=== PATIENT | female | born 1965 | race Caucasian/White ===

== ENCOUNTER 2019-08-25 17:30 | Emergency (ER) | payer OTHER, SELFPAY ==
[2019-08-25 17:30] VITALS: BP 136/88; PULSE 90; RESP 16; TEMP 36.2; O2SAT 96; BMI 39.8
--- NOTE | 2019-08-25 18:13 | CT_ITS ---
STUDY: CT BRAIN WITHOUT CONTRAST REASON FOR EXAM: Female, 54 years old. Trauma RADIATION DOSAGE (If Supplied By Facility): CTDIvol = ( 44.99 ) mGy, DLP = ( 779.24 ) mGycm TECHNIQUE: Transaxial CT imaging of the brain was performed without administration of intravenous contrast material. Individualized dose optimization techniques were used for this CT. COMPARISON: No relevant priors. FINDINGS: Brain parenchyma is without focal lesions, mass effect, acute intracranial hemorrhage, extra parenchymal fluid collections, hydrocephalus or herniation. The skull is intact. There is a right forehead laceration. CT/Brain/Head without Contrast IMPRESSION: 1. Normal CT brain. Electronically Signed: Byron Lerma, at 19:16 EST Tel , Service support ,
--- NOTE | 2019-08-25 18:13 | CT_ITS ---
STUDY: CT CERVICAL SPINE WITHOUT CONTRAST REASON FOR EXAM: Female, 54 years old. Trauma RADIATION DOSAGE (If Supplied By Facility): CTDIvol = ( 30.97 ) mGy, DLP = ( 694.10 ) mGycm TECHNIQUE: High resolution transaxial imaging was performed without contrast material. Sagittal and coronal images were reconstructed. Individualized dose optimization techniques were used for this CT. COMPARISON: None FINDINGS: Craniocervical junction and cervical spine are intact and aligned. Mineralization is normal. Paraspinous soft tissues are normal. Spinal canal is patent at all levels. CT/Spine Cervical without Contras IMPRESSION: 1. Unremarkable cervical spine. No acute osseous injury. Electronically Signed: Byron Lerma, at 19:21 EST Tel , Service support ,
[2019-08-25] MEDS: Diphth,Pertuss(Acell),Tet Vac 0.5 ML Vial IM (18:49)
[2019-08-25 19:51] VITALS: RESP 16
--- NOTE | 2019-08-25 19:53 | ED.DCSUM_ITS ---
- ER Visit Summary Date of Service: 08/25/19 Chief Complaint: [Head injury with forehead laceration] History of Present Illness: The patient is a 54 F [presents to the emergency department after falling and sustaining a head injury. Patient states that she was at a [employer] for a football game and had been drinking. Patient went to the bathroom and fell striking her head. She denies loss of consciousness. She denies any neck pain. Patient unsure of last tetanus shot. She denies any other injuries. Denies any vomiting.] Physical Examination: [HEENT-PERRLA, EOMI. Cranial nerves II through XII grossly intact. TMs clear. Mucous membranes moist. No adenopathy. She has no C-spine tenderness to palpation. No bony step-offs or depressions noted. Patient has a 6 cm laceration over the right side of the forehead that is gaping open. No bony defect noted to the skull. Cardiovascular-regular rate and rhythm without murmur or ectopy Lungs-clear to auscultation, chest wall stable without crepitus or subcu emphysema Abdomen-normoactive bowel sounds, soft, nontender, no rebound or rigidity, no peritoneal signs. Extremities-intact ?4, normal range of motion, normal pulses, atraumatic] Test Results: [CT scan of the brain without contrast was unremarkable. CT scan of the C-spine was normal.] Emergency Department Course and Treatment: [Laceration repair-wound sterilely draped and prepped. Wound cleansed with Shur-Clens and irrigated with copious saline. Using 1% lidocaine with epinephrine total of 8 cc used to anesthetize the area. Wound cleansed with Shur-Clens and irrigated with copious saline. Using 6-0 nylon a total of 10 single interrupted sutures placed with good wound edge approximation. Patient had a procedure well.] Treatment Plan: [Patient to have sutures removed in 7 days. Patient to follow- up with primary care physician for that. Advised to return if increasing pain, redness, swelling, or conditions worsen anyway.] Disposition: [Discharged home in stable condition] Impression: [Mechanical fall Closed head injury Forehead laceration 6 cm-simple repair ] This note was generated with [employer] dictation software. It may contain incorrect words, spelling, and punctuation that were not noted in review of the chart prior to signing ED Disposition - Plan for ED Patient: Referrals: Michael Hyatt [Primary Care Provider] -
--- NOTE | 2019-08-25 19:56 | ED.DEP ---
ED Disposition - Plan for ED Patient: Instructions: LACERATION, Face (Suture or Tape), HEAD INJURY, No Wake-Up (Adult) Referrals: Michael Hyatt [Primary Care Provider] - 7 Days for suture removal
[2019-08-25 20:04] VITALS: RESP 16
== END 2019-08-25 20:05 | disposition home or self-care (01) ==
LOC: ED 18:22
PROVIDERS: Emergency Provider Emergency Medicine; Family Provider Internal Medicine; PCP Internal Medicine
DX: S01.81XA Laceration without foreign body of other part of head, initial encounter (principal); W18.09XA Striking against other object with subsequent fall, initial encounter; Y93.9 Activity, unspecified; Y92.89 Other specified places as the place of occurrence of the external cause; Y99.9 Unspecified external cause status; I10 Essential (primary) hypertension; Z72.89 Other problems related to lifestyle
CPT/HCPCS: 12014; 70450; 72125; 90471; 90715; 99283

== ENCOUNTER → 2021-05-18 10:52 | Outpatient (CLI) | payer OTHER, SELFPAY | PROVIDERS: PCP Internal Medicine; Referring Provider Physician Assistant; Visit Provider Physician Assistant | DX: R09.81 Nasal congestion (principal) | CPT/HCPCS: 87635; U0005; U0003 ==

== ENCOUNTER → 2021-08-14 16:04 | Outpatient (CLI) | payer OTHER, SELFPAY ==
--- NOTE | 2021-08-14 08:18 | KNEE_PTH ---
PATIENT: MAXIMINO PATEL LOC: [facility] U#:[id number] AGE/SX: 60/F ROOM: RE08/14/[address]: Dr. Cristhian Yuan MD : 1965 BED: DIS: SPEC #: [id number] RECD: 08/14/21 14:57 STATUS: MOHAN RE #: [id number] JORDYN: 08/14/21 08:[address]: Cristhian Yuan DEPT: SURGICAL PATHOLOGY RECD BY: Annamaria Vila ENTERED: 08/17/21 09:10 SP TYPE: TOTAL KNEE OTHR DR: Dr. Michael Hyatt MD [facility] Tissues: Knee, NOS Procedures: Decalcification bone/plaque Surgery Specimen Level IV HEADER OPERATION: Right total knee arthroplasty PRE-OP DIAGNOSIS: Osteoarthritis right knee TISSUE SUBMITTED: Bone right knee MICROSCOPIC DIAGNOSIS Bone right knee, total knee replacement/resection: Pieces of bone with degenerative osteoarthritic changes. Fibroadipose tissue, fibroconnective tissue and reactive synovial tissue. SJ:norma 08/25/2021 MICROSCOPIC DESCRIPTION Slides are reviewed. GROSS DESCRIPTION Received is one container designated bone and soft tissue right knee. The specimen consists of multiple fragments of agustin-yellow bone measuring in aggregate 12 x 8 x 2 cm. Also in the specimen container are multiple fragments of yellow-white soft tissue measuring in aggregate 7 x 5 x 2 cm. A number of bony fragments contain articular surfaces consistent with tibial plateau and femoral condyle and displaying prominent osteophyte formation, eburnation, and bone erosion. Automobile Mechanic sections are submitted in three cassettes as follows: 1 - soft tissue, 2 & 3 - bone after decalcification. / AM:norma 08/17/21 TC:5 [facility]: [id number], [id number]
== END ==
PROVIDERS: PCP Internal Medicine; Referring Provider Orthopaedic Surgery; Visit Provider Orthopaedic Surgery
DX: M17.11 Unilateral primary osteoarthritis, right knee (principal)
CPT/HCPCS: 88305; 88311

== ENCOUNTER 2021-09-09 05:26 | Day surgery (SDC) | payer OTHER, SELFPAY ==
[2021-09-09] MEDS: Lactated Ringers 1,000 ML 15 ML IV (05:35)
[2021-09-09 05:51] VITALS: BP 150/87; PULSE 82; RESP 16; TEMP 36.9; O2SAT 98; BMI 37.0
--- NOTE | 2021-09-09 06:30 | COLBX_PTH ---
PATIENT: MAXIMINO PATEL LOC: [facility] U#:[id number] AGE/SX: 56/F ROOM: RE09/09/[address]: Dr. Ez Nichols DO : 1965 BED: DIS: 09/09/2021 SPEC #: [id number] RECD: 09/09/21 09:21 STATUS: MOHAN REShyam #: [id number] JORDYN: 09/09/21 06:[address]: Ez Nichols DEPT: SURGICAL PATHOLOGY RECD BY: Steven Jacob ENTERED: 09/09/21 10:53 SP TYPE: COLON BX OT DR: Dr. Michael Hyatt MD Tissues: A - Cecum, NOS B - COLON BIOPSY C - Transverse colon Procedures: Surgery Specimen Level IV HEADER OPERATION: Colonoscopy, open access PRE-OP DIAGNOSIS: Screening colonoscopy TISSUE SUBMITTED: A ? Cecal polyp biopsy, B ? Hepatic flexure biopsy, C ? Transverse polyp biopsy MICROSCOPIC DIAGNOSIS A. Cecal polyp, biopsy: Tubular adenoma. B. Colonic at hepatic flexure, biopsy: Tubular adenoma. C. Transverse colon polyp, biopsy: Fragments of tubular adenoma. AM:norma 09/10/2021 MICROSCOPIC DESCRIPTION Slides are reviewed. GROSS DESCRIPTION A - Received in fixative is one container labeled with the patient's name and designated cecal polyp biopsy. The specimen consists of one irregular fragment of light agustin soft tissue that measures 0.5 x 0.3 x 0.1 cm. The specimen is totally submitted in one cassette. B - Received in fixative is one container labeled with the patient's name and designated hepatic flexure biopsy. The specimen consists of one irregular fragment of light agustin soft tissue that measures 0.5 x 0.5 x 0.1 cm. The specimen is totally submitted in one cassette. C - Received in fixative is one container labeled with the patient's name and designated transverse colon polyp. The specimen consists of two irregular fragments of light agustin soft tissue that in aggregate measure 0.8 x 0.3 x 0.1 cm. The specimen is totally submitted in one cassette. 09/09/21 TC:5 CPT: 59153 x3
--- NOTE | 2021-09-09 06:33 | PCM.HP.BLA ---
History and Physical Date of Admission: 09/09/21 56-year-old with past medical history of hypertension and gastroesophageal reflux disease both controlled on medications arrives here for screening colonoscopy. This is her first colonoscopy. She is not having any problems with her bowels including no constipation, diarrhea or lower GI bleeding. Her weight has been stable. She is not having any pain at this time. Overall she is in a good state of health. All other 16 review of systems are negative except those pertinent positive mentioned HPI ROS Const Constitutional: No other (As above) Exam Const General: cooperative, healthy appearing, comfortable and no acute distress Nutritional Appearance: well nourished Orientation: alert, awake and oriented x3 HENMT Head: normal to inspection Ears: hearing grossly normal bilaterally, external ears normal, TM's normal bilaterally and EAC's normal Nose: external nose normal, nares normal, septum normal and no nasal discharge Face and sinus: normal facial exam, sinuses nontender and face symmetric Mouth: oral mucosae normal, lip normal, tongue normal and oropharynx normal Teeth and gingiva: dentition normal and gingiva normal Throat: posterior oropharynx normal, tonsils normal, uvula midline and no postnasal drainage Eyes General: appearance normal, both eyes and all related structures Neck Neck: normal visual inspection, full ROM, no lymphadenopathy, no meningeal signs and supple Neck mass: No Thyroid: thyroid normal Lymphatic: no lymphadenopathy noted Chest Chest palpation & inspection: normal inspection of the chest Resp Effort & Inspection: normal respiratory effort, able to speak in complete sentences, symmetric chest movement and no cough Auscultation: Bilateral: Clear to Auscultation Cardio Palpation: normal PMI Rate: regular rate Rhythm: regular rhythm Heart Sounds: S1 normal, S2 normal, no gallops, no murmurs and no rubs Pulses: radial pulses present GI Inspection: large pannus Palpation: not firm, no guarding and nontender Skin General: no rashes or lesions noted Neuro General: patient alert, patient awake, patient oriented x3 and gait normal Cognition: normal cognition Speech: speech normal Gait: normal gait Motor: muscle tone normal throughout Sensory Exam: no sensory deficits noted Extrem General: normal to inspection Psych Appearance: grossly normal Mental Status: mental status grossly normal Mood: congruent mood Affect: normal affect Speech and Movement: speech and movement normal Attitude: cooperative Thought Process: normal Thought Content: normal Judgment: judgment good Assessment and Plan Assessment and Plan 56-year-old arrives here for screening colonoscopy. She was explained alternatives, risk, benefits including not withstanding bleeding, infection, sepsis, perforation, need for emergent surgery . She will have an ASA of 1.
[2021-09-09 07:05] VITALS: BP 115/79; BP 150/87; PULSE 66; RESP 16; TEMP 36.2; O2SAT 99
--- NOTE | 2021-09-09 07:06 | OP.COLON_ITS ---
Patient Name: Idalmis Glover Procedure Date: 09/09/2021 6:17 AM Date of : 1965 Age: 56 Procedure: Colonoscopy Indications: Screening for colorectal malignant neoplasm Providers: Ez Nichols DO Medicines: See the Anesthesia note for documentation of the administered medications Patient Profile: This is a 56 year old female. Refer to note in patient chart for documentation of history and physical. Last Colonoscopy: date unknown. Complications: No immediate complications. Procedure: Pre-Anesthesia Assessment: - Prior to the procedure, a History and Physical was performed, and patient medications and allergies were reviewed. The risks and benefits of the procedure and the sedation options and risks were discussed with the patient. All questions were answered and informed consent was obtained. Patient identification and proposed procedure were verified by the physician in the pre-procedure area. Mental Status Examination: alert and oriented. Airway Examination: normal oropharyngeal airway and neck mobility. Respiratory Examination: clear to auscultation. CV Examination: normal. Prophylactic Antibiotics: The patient does not require prophylactic antibiotics. Prior Anticoagulants: The patient has taken no previous anticoagulant or antiplatelet agents. ASA Grade Assessment: II - A patient with mild systemic disease. After reviewing the risks and benefits, the patient was deemed in satisfactory condition to undergo the procedure. The anesthesia plan was to use moderate sedation / analgesia (conscious sedation). Immediately prior to administration of medications, the patient was re-assessed for adequacy to receive sedatives. The heart rate, respiratory rate, oxygen saturations, blood pressure, adequacy of pulmonary ventilation, and response to care were monitored throughout the procedure. The physical status of the patient was re-assessed after the procedure. After I obtained informed consent, the scope was passed under direct vision. Throughout the procedure, the patient's blood pressure, pulse, and oxygen saturations were monitored continuously. The Colonoscope was introduced through the anus and advanced to the cecum, identified by appendiceal orifice and ileocecal valve. The ileocecal valve, appendiceal orifice, and rectum were photographed. Moderate Sedation: Moderate (conscious) sedation was administered by the endoscopy nurse and supervised by the endoscopist. The patient's oxygen saturation, heart rate, blood pressure and response to care were monitored. Total physician intraservice time was 15 minutes. Scope In: 6:43:36 AM Scope Withdrawal Time 0 hours 13 minutes 34 seconds Scope Out: 7:00:34 AM Total Procedure Duration Time 0 hours 16 minutes 58 seconds Findings: The perianal and digital rectal examinations were normal. Multiple small-mouthed diverticula were found in the recto-sigmoid colon, sigmoid colon, descending colon and transverse colon. Three sessile polyps were found in the transverse colon, hepatic flexure and cecum. The polyps were 1 to 2 mm in size. These polyps were removed with a hot snare. Resection and retrieval were complete. Verification of patient identification for the specimen was done. Estimated blood loss was minimal. Impression: - Mild diverticulosis in the recto-sigmoid colon, in the sigmoid colon, in the descending colon and in the transverse colon. - Three 1 to 2 mm polyps in the transverse colon, at the hepatic flexure and in the cecum, removed with a hot snare. Resected and retrieved. Recommendation: - Repeat colonoscopy in 3 years for surveillance of multiple polyps. - Return to GI office PRN. - Continue present medications. Procedure Code(s): --- Professional --- 05531, Colonoscopy, flexible; with removal of tumor(s), polyp(s), or other lesion(s) by snare technique G0500, Moderate sedation services provided by the same physician or other qualified health skin care therapist performing a gastrointestinal endoscopic service that sedation supports, requiring the presence of an independent trained observer to assist in the monitoring of the patient's level of consciousness and physiological status; initial 15 minutes of intra-service time; patient age 5 years or older (additional time may be reported with 47974, as appropriate) CPT copyright 2017 [employer]. All rights reserved. The codes documented in this report are preliminary and upon repairer recreational vehicle review may be revised to meet current compliance requirements. Ez Nichols DO 09/09/2021 7:06:28 AM This report has been signed electronically. Number of Addenda: 1 Note Initiated On: 09/09/2021 6:17 AM Addendum Number: 1 Addendum Date: 06/02/2022 7:15:45 AM MAC was used instead of moderate sedation for the patient. Ez Nichols DO 06/02/2022 7:15:50 AM This report has been signed electronically.
--- NOTE | 2021-09-09 07:06 | OP.CCLET_ITS ---
06/02/2022 Michael Hyatt Re : Colonoscopy procedure for Idalmis Glover [place] This procedure was performed on Thursday, September 09, 2021. My impressions and recommendations are as follows: Impressions : - Mild diverticulosis in the recto-sigmoid colon, in the sigmoid colon, in the descending colon and in the transverse colon. - Three 1 to 2 mm polyps in the transverse colon, at the hepatic flexure and in the cecum, removed with a hot snare. Resected and retrieved. Recommendations : - Repeat colonoscopy in 3 years for surveillance of multiple polyps. - Return to GI office PRN. - Continue present medications. My findings are described in the full procedure note, which is enclosed. If I can be of further assistance, please feel free to contact me at . Sincerely, Ez Nichols, 09/09/2021 7:06:28 AM This report has been signed electronically.
[2021-09-09 07:10] VITALS: BP 123/86; BP 150/87; PULSE 63; RESP 16; O2SAT 100
[2021-09-09 07:15] VITALS: BP 117/77; BP 150/87; PULSE 65; RESP 16; O2SAT 100
[2021-09-09 07:20] VITALS: BP 131/81; BP 150/87; PULSE 63; RESP 16; TEMP 36.2; O2SAT 100
[2021-09-09 07:22] VITALS: BP 150/87
== END 2021-09-09 07:38 ==
LOC: EN 05:28 → AC 05:28
PROVIDERS: PCP Internal Medicine; Referring Provider Internal Medicine; Visit Provider Internal Medicine Gastroenterology
PROC: 0DJD8ZZ Inspection of Lower Intestinal Tract, Via Natural or Artificial Opening Endoscopic (ICD-10-PCS; CPT 45378; principal; 2021-09-09 06:25)
DX: Z12.11 Encounter for screening for malignant neoplasm of colon (principal); K57.30 Diverticulosis of large intestine without perforation or abscess without bleeding; K63.5 Polyp of colon; I10 Essential (primary) hypertension; K21.9 Gastro-esophageal reflux disease without esophagitis
CPT/HCPCS: 45385; 88305; J7120; J2405

== ENCOUNTER 2024-06-25 11:00 | Outpatient (RCR) | payer OTHER, SELFPAY ==
[2024-06-05 13:16] VITALS: BP 184/97; PULSE 91; RESP 16; TEMP 36.1; BMI 38.2
--- NOTE | 2024-06-06 08:30 | WC ---
PHOTO 06/05/24 [employer]
--- NOTE | 2024-06-06 16:13 | PCM.WC.HP ---
History of Present Illness Date of Service: 06/05/24 [facility] Medical History (Updated 06/06/24 @ 16:[address] 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 Obesity (BMI 30-39.9) GERD (gastroesophageal reflux disease) LENKA on CPAP Hyperlipidemia Post-menopausal Wears glasses Wears dentures Alcohol use Arthritis Gastric reflux Former smoker CPAP (continuous positive airway pressure) dependence Hypertension Encounter for screening for COVID-19 Home Medications ?Medication ?Instructions ?Recorded ?Last Taken ?Type losartan 50 mg tablet 50 mg PO DAILY 09/08/21 Unknown History omeprazole 40 mg capsule,delayed 40 mg PO DAILY 09/08/21 Unknown History release alprazolam 0.25 mg tablet 0.25 mg PO TID PRN PRN anxiety 06/05/24 Unknown History atorvastatin 20 mg tablet 20 mg PO QPM 06/05/24 Unknown History losartan 100 mg tablet 100 mg PO DAILY 06/05/24 Unknown History Allergy/AdvReac Type Severity Reaction Status Date / Time No Known Allergies Allergy Verified 06/05/24 13:28 Surgical History (Updated 06/06/24 @ 16:[address] Laron Balderas MD) Hx of colonoscopy Hx of total knee arthroplasty Hx of total knee arthroplasty History of Social History Smoking Status: Former smoker Vital Signs Vital Signs Vital Signs: Weight Weight: 216 lb Body Mass Index (BMI) 38.2 Debridement Note Debridement Note Post-Debridement Measurements and Additional Note: Post-Debridement Measurements/Treatment WC - Nurse 1 - General Ulcer Assessment Start: 06/05/24 13:14 Freq: Status: Active Protocol: ABDIEL Activity Type Activity Date Activity User E-sign Co-sign Detail Recorded Client Recorded Date Recorded By Document 06/05/24 13:16 KW [id number] 06/05/24 13:28 KW 06/05/24 13:16 WC - Today's Visit Information Type of service Initial Visit Arrival Mode Ambulatory Patient Identification Verified (Name & Yes ) Height and Weight Height 5 ft 3 in Weight 216 lb Weight in Pounds 216.0 lbs Weight Measurement Method Stated by Patient Body Mass Index (BMI) 38.2 BMI Classification Obese BSA - Minerva 2.00 Vital Signs Temperature (97.8 F-99.1 F) 96.9 F L Temperature Source Temporal Pulse Rate (60-100) 91 Pulse Location Monitor Respiratory Rate (12-18) 16 Respiratory rate source Observation Oxygen Delivery Method Room Air Blood Pressure (90/60-120/80) 184/97 H Blood Pressure Mean 126 Source Monitor Position Sitting Blood Pressure Location Left Arm History Since Last Visit- (Skip if this is Patient's initial visit) Left Footwear Regular Shoe Right Footwear Regular Shoe Pain Scale: 0-10 Numeric Is Patient Pain Free? No RLE -Comments ONLY WHEN BEING TOUCHED Communication Assessment Preferred language Frisian Crm Coordinator Required No Able to Read Yes Able to Write Yes Communication Tools None Caregiver Communication Skills No Impairment Impairment Right Hearing Abillity Normal Left Hearing Abillity Normal Visual Assistive Devices Glasses Teaching Assessment Preferences Verbal,Written Barriers to Learning None Readiness To Learn Excellent Willingness to Engage in Self Management High Activies Readiness to Engage in Self Management High Activities Anxiety Level Calm Cooperation Cooperative Perception Coherent Interest in Health Problem Asks Questions Education Importance Acknowledges Need Does Patient Smoke tobacco or other Yes substances Smoking Status Former smoker Is Patient Diabetic No Functional Assessment Recent Decline in Ability to Perform Denies Any Declines Culture/Baptism/Licensing And Registration Director Cultural/Baptism Needs that may affect No Treatment Plan Would you allow our hospital legal specialist to No meet you for the purpose of spiritual/ emotional support? Licensing And Registration Director to contact place of alevism No WC - Nurse 1 - General Ulcer Measurement Start: 06/05/24 13:14 Freq: Status: Active Protocol: Activity Type Activity Date Activity User E-sign Co-sign Detail Recorded Client Recorded Date Recorded By Document 06/05/24 13:16 KW [id number] 06/05/24 13:28 KW Edit Result 06/05/24 13:16 KW (1) [id number] 06/05/24 13:40 KW (1) #1 RT POST LE - Current Size (cm) - Length => 1.8 - Current Size (cm) - Width => 1.8 - Current Size (cm) - Depth => 0.5 - Total Square Cm => 3.24 Right Calf (cm) => 41.5 Right Ankle (cm) => 25 06/05/24 13:16 Wound Center Nurse 1 #1 RT POST LE -Current Size (cm) - Length 1.8 -Current Size (cm) - Width 1.8 -Current Size (cm) - Depth 0.5 -Total Square Cm 3.24 -Exudate Amt None Present -Wound Margin Distinct, Outline Attached -Granulation Amt Small (1-33%) -Granulation Quality Red -Necrosis Amt Large (67-100%) -Necrotic Tissue Type Eschar -Texture (Tanisha-wound Skin Appearance) Assessed -Moisture (Tanisha-wound Skin Appearance) Assessed -Color (Tanisha-wound Skin Appearance) Assessed -Temperature (Tanisha-wound Skin No Abnormality Appearance) (Pt Warm) -Tenderness on Palpation (Tanisha-wound No Skin Appearance) -Ulcer Cleansing Rinsed/ Irrigated with Saline -Foul Odor after Cleansing No -Anesthetic Used 5% Lidocaine Gel Right Calf (cm) 41.5 Right Ankle (cm) 25 WC - Nurse 2 - General Ulcer CM Notes Start: 06/05/24 13:14 Freq: Status: Active Protocol: Activity Type Activity Date Activity User E-sign Co-sign Detail Recorded Client Recorded Date Recorded By Document 06/05/24 13:49 DS [id number] 06/05/24 13:53 DS 06/05/24 13:49 Wound Center Nurse 2 #1 RT POST LE -Time 13:49 -Correct Patient Yes -Correct Side, Site, Position Yes -Correct Procedure Yes -Procedure Performed Yes -Type of Procedure Debridement -Clinical Debridement Subcutaneous -Tissue Removed Subcutaneous -Post Debridement (cm) - Length 2.0 -Post Debridement (cm) - Width 2.0 -Post Debridement (cm) - Depth 0.4 -Total Square (Post) (cm) 4.00 -Area of Debridement (cm) - Length 2.0 -Area of Debridement (cm) - Width 2.0 -Total Square (Area) (cm) 4.00 -Tunneling No -Undermining/Tunneling No -Circular Undermining No -Wound/Ulcer Outcome Not Healed -Ulcer Cleansing Rinsed/ Irrigated with Saline -Bioengineered Tissue No -Bleeding Controlled with Pressure -Treatment Response Procedure Tolerated Well -Debridement - Subq, 1st 20sq cm Yes Pain Scale: 0-10 Numeric Is Patient Pain Free? Yes - Nurse 3 - General Ulcer D/C NN Start: 06/05/24 13:14 Freq: Status: Active Protocol: Activity Type Activity Date Activity User E-sign Co-sign Detail Recorded Client Recorded Date Recorded By Document 06/05/24 14:04 KW [id number] 06/05/24 14:05 KW 06/05/24 14:04 Wound Care Center Nurse 3 #1 RT POST LE -Primary Dressing Applied Aquacel AG 4x4 -Primary Dressing Covered/Secured with Dry Gauze & Roll Gauze, Secured with Tape -Aquacel AG 4x4 1 Pain Scale: 0-10 Numeric Is Patient Pain Free? Yes WC - Visit Discharge Discharge Condition Stable Ambulatory Status Ambulatory Transportation Private Auto Medication Reconcilliation completed & No provided to patient/care provider Clinical Summary of Care Provided Yes Lab / Micro Data Micro: Microbiology 06/05/24 15:47 Wound - Leg Gram Stain - Final 06/05/24 15:47 Wound - Leg Wound Culture - Preliminary Mixed Gram Positive Organisms Assessment/Plan Assessment/Plan (1) 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 layer exposed: CODE(S): L97.212 - 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 layer exposed (2) Non-pressure chronic ulcer of calf with fat layer exposed: CODE(S): L97.202 - Non-pressure chronic ulcer of unspecified calf with fat layer exposed QUALIFIERS: Laterality: right Qualified Code(s): L97.212 - 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 layer exposed (3) History of : CODE(S): Z98.891 - History of uterine scar from previous surgery (4) Hx of colonoscopy: CODE(S): Z98.890 - Other specified postprocedural states (5) Hx of total knee arthroplasty: CODE(S): Z96.659 - Presence of unspecified artificial knee joint (6) Hx of total knee arthroplasty: CODE(S): Z96.659 - Presence of unspecified artificial knee joint (7) Hypertension: CODE(S): I10 - Essential (primary) hypertension (8) Hyperlipidemia: CODE(S): E78.5 - Hyperlipidemia, unspecified (9) LENKA on CPAP: CODE(S): G47.33 - Obstructive sleep apnea (adult) (pediatric) (10) GERD (gastroesophageal reflux disease): CODE(S): K21.9 - Gastro-esophageal reflux disease without esophagitis (11) Obesity (BMI 30-39.9): CODE(S): E66.9 - Obesity, unspecified
--- NOTE | 2024-06-06 16:20 | PCM.WC.HP ---
History of Present Illness Date of Service: 06/05/24 Chief Complaint: Traumatic wound of the right posterior calf History of Wound: This is a 59-year-old female who presented with a traumatic wound on the right posterior calf. On May 11, 2024, during an appointment with her family physician, the patient injured her right posterior calf while dismounting from the examination table. Her right calf impacted the examination table, creating an open wound, for which the patient has sought evaluation and management. The patient has been using antibiotic ointment topically. She denies chronic swelling in her lower extremities. She denies a history of thrombophlebitis. She is ambulatory, and is able to ambulate liberally without limitations. 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 She claims to lead an active lifestyle. The patient is moderately obese, with a BMI of 38.2. [facility] Medical History Diverticulosis Traumatic open wound of right lower leg 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 layer exposed Non-pressure chronic ulcer of calf with fat layer exposed Obesity (BMI 30-39.9) GERD (gastroesophageal reflux disease) LENKA on CPAP Hyperlipidemia Post-menopausal Wears glasses Wears dentures Alcohol use Arthritis Gastric reflux Former smoker CPAP (continuous positive airway pressure) dependence Hypertension Encounter for screening for COVID-19 Home Medications ?Medication ?Instructions ?Recorded ?Last Taken ?Type losartan 50 mg tablet 50 mg PO DAILY 09/08/21 Unknown History omeprazole 40 mg capsule,delayed 40 mg PO DAILY 09/08/21 Unknown History release alprazolam 0.25 mg tablet 0.25 mg PO TID PRN PRN anxiety 06/05/24 Unknown History atorvastatin 20 mg tablet 20 mg PO QPM 06/05/24 Unknown History losartan 100 mg tablet 100 mg PO DAILY 06/05/24 Unknown History Allergy/AdvReac Type Severity Reaction Status Date / Time No Known Allergies Allergy Verified 06/05/24 13:28 Surgical History Hx of colonoscopy Hx of total knee arthroplasty Hx of total knee arthroplasty History of Social History Smoking Status: Former smoker Vital Signs Vital Signs Vital Signs: Weight Weight: 216 lb Body Mass Index (BMI) 38.2 Physical Exam Const alert, oriented x3, no apparent distress, no limitations, healthy appearing and well nourished Constitutional Narrative: The patient's BMI is 38.2. General Appearance: cooperative, comfortable, well kempt and well developed Orientation / Consciousness: awake, oriented to person, oriented to place and oriented to time Exam Limitations: no limitations HEENT normocephalic and head/scalp atraumatic Head and Scalp: normal to inspection, normocephalic and atraumatic Face and Sinus: normal facial exam Nose: external nose normal External Ear: external ears normal Eyes PERRL and EOMs intact bilaterally General Eye: normal appearance of both eyes Neck full ROM Resp normal respiratory effort, normal air movement, no retractions and no use of accessory muscles Effort and Inspection: able to speak in complete sentences and symmetric chest movement Extremity full ROM and no calf tenderness Extremity Narrative: Multiple ecchymoses are noted on the patient's extremities bilaterally, both upper and lower General Extremity: Negative for clubbing or cyanosis Skin Wound Narrative: There is no swelling or edema noted in the patient's lower extremities bilaterally. An open wound is noted on the right posterior calf. Dimensions are documented elsewhere. There is a large amount of necrotic and nonviable tissue present, as well as bioburden. Mild tanisha-wound erythema and cellulitis are noted in the periwound area. As a result, swab culture was obtained for aerobic and anaerobic bacterial culture. Neuro oriented x3, CN's II-XII intact bilaterally, moves all extremities, no focal motor deficits and no sensory deficits noted Sensorium / Orientation: awake, alert, oriented to person, oriented to place, oriented to time and orientation impaired Psych Appearance: grossly normal and appropriate Attitude: calm Activity / Motor Behavior: appropriate eye contact Speech: normal speech Mood & Affect: euthymic mood Thought Process: normal thought process Thought Content: normal thought content Attention / Concentration: attention grossly intact Debridement Note Debridement Note Wound debrided: Right posterior calf Laterality: Right Type of Debridement: Excisional debridement Anesthesia Used: 5% Lidocaine Gel Depth: Down to and including healthy tissue and in the subcutaneous layer Percentage of wound debrided: 100 Instrument Used: 5mm curette Tissue Removed: Nonviable and necrotic tissue, bioburden Severity: Fat Layer Exposed Amount of bleeding with debridement: Mild Bleeding Controlled with: Compression and gauze Patient tolerated procedure: Patient tolerated procedure well Debridement Free Text: A swab culture was obtained, for aerobic and anaerobic bacterial growth Post-Debridement Measurements and Additional Note: Post-Debridement Measurements/Treatment WC - Nurse 1 - General Ulcer Assessment Start: 06/05/24 13:14 Freq: Status: Active Protocol: ABDIEL Activity Type Activity Date Activity User E-sign Co-sign Detail Recorded Client Recorded Date Recorded By Document 06/05/24 13:16 [id number] 06/05/24 13:28 06/05/24 13:16 WC - Today's Visit Information Type of service Initial Visit Arrival Mode Ambulatory Patient Identification Verified (Name & Yes ) Height and Weight Height 5 ft 3 in Weight 216 lb Weight in Pounds 216.0 lbs Weight Measurement Method Stated by Patient Body Mass Index (BMI) 38.2 BMI Classification Obese BSA - Minerva 2.00 Vital Signs Temperature (97.8 F-99.1 F) 96.9 F L Temperature Source Temporal Pulse Rate (60-100) 91 Pulse Location Monitor Respiratory Rate (12-18) 16 Respiratory rate source Observation Oxygen Delivery Method Room Air Blood Pressure (90/60-120/80) 184/97 H Blood Pressure Mean 126 Source Monitor Position Sitting Blood Pressure Location Left Arm History Since Last Visit- (Skip if this is Patient's initial visit) Left Footwear Regular Shoe Right Footwear Regular Shoe Pain Scale: 0-10 Numeric Is Patient Pain Free? No RLE -Comments ONLY WHEN BEING TOUCHED Communication Assessment Preferred language Armenian Insulation Board Coater Operator Required No Able to Read Yes Able to Write Yes Communication Tools None Caregiver Communication Skills No Impairment Impairment Right Hearing Abillity Normal Left Hearing Abillity Normal Visual Assistive Devices Glasses Teaching Assessment Preferences Verbal,Written Barriers to Learning None Readiness To Learn Excellent Willingness to Engage in Self Management High Activies Readiness to Engage in Self Management High Activities Anxiety Level Calm Cooperation Cooperative Perception Coherent Interest in Health Problem Asks Questions Education Importance Acknowledges Need Does Patient Smoke tobacco or other Yes substances Smoking Status Former smoker Is Patient Diabetic No Functional Assessment Recent Decline in Ability to Perform Denies Any Declines Culture/Jew/Multicultural Manager Cultural/Jew Needs that may affect No Treatment Plan Would you allow our hospital pea viner mechanic to No meet you for the purpose of spiritual/ emotional support? Multicultural Manager to contact place of samaritan No WC - Nurse 1 - General Ulcer Measurement Start: 06/05/24 13:14 Freq: Status: Active Protocol: Activity Type Activity Date Activity User E-sign Co-sign Detail Recorded Client Recorded Date Recorded By Document 06/05/24 13:16 KW [id number] 06/05/24 13:28 KW Edit Result 06/05/24 13:16 KW (1) [id number] 06/05/24 13:40 KW (1) #1 RT POST LE - Current Size (cm) - Length => 1.8 - Current Size (cm) - Width => 1.8 - Current Size (cm) - Depth => 0.5 - Total Square Cm => 3.24 Right Calf (cm) => 41.5 Right Ankle (cm) => 25 06/05/24 13:16 Wound Center Nurse 1 #1 RT POST LE -Current Size (cm) - Length 1.8 -Current Size (cm) - Width 1.8 -Current Size (cm) - Depth 0.5 -Total Square Cm 3.24 -Exudate Amt None Present -Wound Margin Distinct, Outline Attached -Granulation Amt Small (1-33%) -Granulation Quality Red -Necrosis Amt Large (67-100%) -Necrotic Tissue Type Eschar -Texture (Tanisha-wound Skin Appearance) Assessed -Moisture (Tanisha-wound Skin Appearance) Assessed -Color (Tanisha-wound Skin Appearance) Assessed -Temperature (Tanisha-wound Skin No Abnormality Appearance) (Pt Warm) -Tenderness on Palpation (Tanisha-wound No Skin Appearance) -Ulcer Cleansing Rinsed/ Irrigated with Saline -Foul Odor after Cleansing No -Anesthetic Used 5% Lidocaine Gel Right Calf (cm) 41.5 Right Ankle (cm) 25 - Nurse 2 - General Ulcer CM Notes Start: 06/05/24 13:14 Freq: Status: Active Protocol: Activity Type Activity Date Activity User E-sign Co-sign Detail Recorded Client Recorded Date Recorded By Document 06/05/24 13:49 DS [id number] 06/05/24 13:53 DS 06/05/24 13:49 Wound Center Nurse 2 #1 RT POST LE -Time 13:49 -Correct Patient Yes -Correct Side, Site, Position Yes -Correct Procedure Yes -Procedure Performed Yes -Type of Procedure Debridement -Clinical Debridement Subcutaneous -Tissue Removed Subcutaneous -Post Debridement (cm) - Length 2.0 -Post Debridement (cm) - Width 2.0 -Post Debridement (cm) - Depth 0.4 -Total Square (Post) (cm) 4.00 -Area of Debridement (cm) - Length 2.0 -Area of Debridement (cm) - Width 2.0 -Total Square (Area) (cm) 4.00 -Tunneling No -Undermining/Tunneling No -Circular Undermining No -Wound/Ulcer Outcome Not Healed -Ulcer Cleansing Rinsed/ Irrigated with Saline -Bioengineered Tissue No -Bleeding Controlled with Pressure -Treatment Response Procedure Tolerated Well -Debridement - Subq, 1st 20sq cm Yes Pain Scale: 0-10 Numeric Is Patient Pain Free? Yes - Nurse 3 - General Ulcer D/C NN Start: 06/05/24 13:14 Freq: Status: Active Protocol: Activity Type Activity Date Activity User E-sign Co-sign Detail Recorded Client Recorded Date Recorded By Document 06/05/24 14:04 [id number] 06/05/24 14:05 KW 06/05/24 14:04 Wound Care Center Nurse 3 #1 RT POST LE -Primary Dressing Applied Aquacel AG 4x4 -Primary Dressing Covered/Secured with Dry Gauze & Roll Gauze, Secured with Tape -Aquacel AG 4x4 1 Pain Scale: 0-10 Numeric Is Patient Pain Free? Yes - Visit Discharge Discharge Condition Stable Ambulatory Status Ambulatory Transportation Private Auto Medication Reconcilliation completed & No provided to patient/care provider Clinical Summary of Care Provided Yes Lab / Micro Data Micro: Microbiology 06/05/24 15:47 Wound - Leg Gram Stain - Final 06/05/24 15:47 Wound - Leg Wound Culture - Preliminary Mixed Gram Positive Organisms Charges/Coding Multi Select Codes Visit Charges Office Visit/Consults: 54186 OV L4 New 45 min Integumentary Integumentary CPT Codes: 27995 Crystal subq tissue 20 sq cm/< Assessment/Plan Assessment/Plan (1) 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 layer exposed: CODE(S): L97.212 - 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 layer exposed (2) Traumatic open wound of right lower leg: CODE(S): S81.801A - Unspecified open wound, right lower leg, initial encounter QUALIFIERS: Encounter type: initial encounter Qualified Code(s): S81.801A - Unspecified open wound, right lower leg, initial encounter (3) Obesity (BMI 30-39.9): CODE(S): E66.9 - Obesity, unspecified (4) Hypertension: CODE(S): I10 - Essential (primary) hypertension (5) Hyperlipidemia: CODE(S): E78.5 - Hyperlipidemia, unspecified (6) History of : CODE(S): Z98.891 - History of uterine scar from previous surgery (7) Hx of colonoscopy: CODE(S): Z98.890 - Other specified postprocedural states (8) Hx of total knee arthroplasty: CODE(S): Z96.659 - Presence of unspecified artificial knee joint QUALIFIERS: Laterality: right Qualified Code(s): Z96.651 - Presence of right artificial knee joint (9) Hx of total knee arthroplasty: CODE(S): Z96.659 - Presence of unspecified artificial knee joint QUALIFIERS: Laterality: left Qualified Code(s): Z96.652 - Presence of left artificial knee joint (10) LENKA on CPAP: CODE(S): G47.33 - Obstructive sleep apnea (adult) (pediatric) (11) GERD (gastroesophageal reflux disease): CODE(S): K21.9 - Gastro-esophageal reflux disease without esophagitis (12) Diverticulosis: CODE(S): K57.90 - Diverticulosis of intestine, part unspecified, without perforation or abscess without bleeding PLAN: Plan This is a 59-year-old female who sustained trauma to her right posterior calf on May 11, 2024. She presented for definitive evaluation and management. A wound debridement has been performed in the wound healing center today, removing the majority of necrotic and nonviable tissue. We are to implement the use of Aquacel Ag, which will be applied topically on a daily basis. The patient has been instructed in the appropriate means of application. The patient has been advised to optimize her nutritional intake. We are to await the results of her bacterial culture, and antibiotic administration will be tailored to the culture results. The patient has been advised to elevate her lower extremities is much as possible, to heart level, to minimize the likelihood of swelling and edema. The patient is to return in 1 week for reevaluation. The patient's phone number is . Her pharmacy is [facility] in [place], [place]. Total time: 48 minutes
[2024-06-12 15:23] VITALS: BP 158/89; PULSE 90; RESP 18; TEMP 36; BMI 38.2
--- NOTE | 2024-06-12 16:19 | HP.PCM_ITS ---
History of Present Illness Date of Service: 06/12/24 Chief Complaint: Traumatic wound of the right posterior calf History of Wound: This is a 59-year-old female who presented with a traumatic wound on the right posterior calf. On May 11, 2024, during an appointment with her family physician, the patient injured her right posterior calf while dismounting from the examination table. Her right calf impacted the examination table, creating an open wound, for which the patient has sought evaluation and management. The patient had been using antibiotic ointment topically. She denies chronic swelling in her lower extremities. She denies a history of thrombophlebitis. She is ambulatory, and is able to ambulate liberally without limitations. 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 She claims to lead an active lifestyle. The patient is moderately obese, with a BMI of 38.2. 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 Obesity (BMI 30-39.9) GERD (gastroesophageal reflux disease) LENKA on CPAP Hyperlipidemia Post-menopausal Wears glasses Wears dentures Alcohol use Arthritis Gastric reflux Former smoker CPAP (continuous positive airway pressure) dependence Hypertension Encounter for screening for COVID-19 Home Medications ?Medication ?Instructions ?Recorded ?Last Taken ?Type losartan 50 mg tablet 50 mg PO DAILY 09/08/21 Unknown History omeprazole 40 mg capsule,delayed 40 mg PO DAILY 09/08/21 Unknown History release alprazolam 0.25 mg tablet 0.25 mg PO TID PRN PRN anxiety 06/05/24 Unknown History atorvastatin 20 mg tablet 20 mg PO QPM 06/05/24 Unknown History losartan 100 mg tablet 100 mg PO DAILY 06/05/24 Unknown History amoxicillin 500 mg-potassium 1 tab PO Q12H Infection #20 tabs 06/08/24 Unknown Rx clavulanate 125 mg tablet (Augmentin) Allergy/AdvReac Type Severity Reaction Status Date / Time No Known Allergies Allergy Verified 06/05/24 13:28 Surgical History Hx of colonoscopy Hx of total knee arthroplasty Hx of total knee arthroplasty History of Social History Smoking Status: Former smoker Vital Signs Vital Signs Vital Signs: 06/12/24 15:23 Temperature 96.8 F L Temperature Source Temporal Pulse Rate 90 Respiratory Rate 18 Blood Pressure 158/89 H Blood Pressure Mean 112 Blood Pressure Source Monitor Blood Pressure Position Semi-Fowlers Blood Pressure Location Left Arm Oxygen Delivery Method Room Air Weight Weight: 216 lb Body Mass Index (BMI) 38.2 Physical Exam Const alert, oriented x3, no apparent distress, no limitations, healthy appearing and well nourished Constitutional Narrative: The patient's BMI is 38.2. General Appearance: cooperative, comfortable, well kempt and well developed Orientation / Consciousness: awake, oriented to person, oriented to place and oriented to time Exam Limitations: no limitations HEENT normocephalic and head/scalp atraumatic Head and Scalp: normal to inspection, normocephalic and atraumatic Face and Sinus: normal facial exam Nose: external nose normal External Ear: external ears normal Eyes PERRL and EOMs intact bilaterally General Eye: normal appearance of both eyes Neck full ROM Resp normal respiratory effort, normal air movement, no retractions and no use of accessory muscles Effort and Inspection: able to speak in complete sentences and symmetric chest movement Extremity full ROM and no calf tenderness Extremity Narrative: Multiple ecchymoses are noted on the patient's extremities bilaterally, both upper and lower General Extremity: Negative for clubbing or cyanosis Skin Wound Narrative: There is no swelling or edema noted in the patient's lower extremities bilaterally. An open wound is noted on the right posterior calf. Dimensions are documented elsewhere. The necrotic and nonviable tissue, previously noted, is no longer present. A moderate amount of bioburden is noted. The tanisha-wound erythema/cellulitis has decreased significantly. Neuro oriented x3, CN's II-XII intact bilaterally, moves all extremities, no focal motor deficits and no sensory deficits noted Sensorium / Orientation: awake, alert, oriented to person, oriented to place, oriented to time and orientation impaired Psych Appearance: grossly normal and appropriate Attitude: calm Activity / Motor Behavior: appropriate eye contact Speech: normal speech Mood & Affect: euthymic mood Thought Process: normal thought process Thought Content: normal thought content Attention / Concentration: attention grossly intact Debridement Note Debridement Note Wound debrided: Right posterior calf Laterality: Right Type of Debridement: Excisional debridement Anesthesia Used: 5% Lidocaine Gel Depth: Down to and including healthy tissue and in the subcutaneous layer Percentage of wound debrided: 100 Instrument Used: 5mm curette Tissue Removed: Bioburden and senescent material Severity: Fat Layer Exposed Amount of bleeding with debridement: Mild Bleeding Controlled with: Compression and gauze Patient tolerated procedure: Patient tolerated procedure well Post-Debridement Measurements and Additional Note: Post-Debridement Measurements/Treatment - Nurse 1 - General Ulcer Assessment Start: 06/05/24 13:14 Freq: Status: Active Protocol: [employer] Activity Type Activity Date Activity User E-sign Co-sign Detail Recorded Client Recorded Date Recorded By Document 06/05/24 13:16 KW [id number] 06/05/24 13:28 KW Document 06/12/24 15:23 KW [id number] 06/12/24 15:28 KW 06/05/24 06/12/24 13:16 15:23 - Today's Visit Information Type of service Initial Visit Follow-up Visit (Physician/BODY COMPONENT ENGINEER ) Arrival Mode Ambulatory Patient Identification Verified (Name & Yes Yes ) Height and Weight Height 5 ft 3 in Weight 216 lb Weight in Pounds 216.0 lbs Weight Measurement Method Stated by Patient Body Mass Index (BMI) 38.2 38.2 BMI Classification Obese Obese BSA - [place] 2.00 Vital Signs Temperature (97.8 F-99.1 F) 96.9 F L 96.8 F L Temperature Source Temporal Temporal Pulse Rate (60-100) 91 90 Pulse Location Monitor Monitor Respiratory Rate (12-18) 16 18 Respiratory rate source Observation Observation Oxygen Delivery Method Room Air Room Air Blood Pressure (90/60-120/80) 184/97 H 158/89 H Blood Pressure Mean 126 112 Source Monitor Monitor Position Sitting Semi-Fowlers Blood Pressure Location Left Arm Left Arm History Since Last Visit- (Skip if this is Patient's initial visit) Have you changed medications since your No last visit? Any new allergies or adverse reactions No Had a fall/change in ADL's that may No increase risk of falls Signs or symptoms of abuse and/or No neglect since last visit Have you been in the hospital since your No last visit? Has dressing in place as prescribed Yes Has compression in place as prescribed N/A Has offloadiing in place as prescribed N/A Experienced any changes in pain level or No management Left Footwear Regular Shoe Regular Shoe Right Footwear Regular Shoe Regular Shoe Pain Scale: 0-10 Numeric Is Patient Pain Free? No Yes RLE -Comments ONLY WHEN BEING TOUCHED Communication Assessment Preferred language Gambian Car Repossessor Required No Able to Read Yes Able to Write Yes Communication Tools None Caregiver Communication Skills No Impairment Impairment Right Hearing Abillity Normal Left Hearing Abillity Normal Visual Assistive Devices Glasses Teaching Assessment Preferences Verbal,Written Barriers to Learning None Readiness To Learn Excellent Willingness to Engage in Self Management High Activies Readiness to Engage in Self Management High Activities Anxiety Level Calm Cooperation Cooperative Perception Coherent Interest in Health Problem Asks Questions Education Importance Acknowledges Need Does Patient Smoke tobacco or other Yes substances Smoking Status Former smoker Is Patient Diabetic No Functional Assessment Recent Decline in Ability to Perform Denies Any Declines 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 Aviation Maintenance Technician to contact place of zoroastrianism No WC - Nurse 1 - General Ulcer Measurement Start: 06/05/24 13:14 Freq: Status: Active Protocol: Activity Type Activity Date Activity User E-sign Co-sign Detail Recorded Client Recorded Date Recorded By Document 06/05/24 13:16 KW [id number] 06/05/24 13:28 KW Edit Result 06/05/24 13:16 KW (1) [id number] 06/05/24 13:40 KW Document 06/12/24 15:23 KW [id number] 06/12/24 15:28 KW (1) #1 RT POST LE - Current Size (cm) - Length => 1.8 - Current Size (cm) - Width => 1.8 - Current Size (cm) - Depth => 0.5 - Total Square Cm => 3.24 Right Calf (cm) => 41.5 Right Ankle (cm) => 25 06/05/24 06/12/24 13:16 15:23 Wound Center Nurse 1 #1 RT POST LE -Current Size (cm) - Length 1.8 1.4 -Current Size (cm) - Width 1.8 1.7 -Current Size (cm) - Depth 0.5 0.4 -Total Square Cm 3.24 2.38 -Exudate Amt None Present Small -Exudate Type Serosanguineous -Wound Margin Distinct, Distinct, Outline Outline Attached Attached -Granulation Amt Small (1-33%) Medium (34-66%) -Granulation Quality Red Red -Necrosis Amt Large (67-100%) Medium (34-66%) -Necrotic Tissue Type Eschar Adherent Slough -Texture (Tanisha-wound Skin Appearance) Assessed Assessed -Moisture (Tanisha-wound Skin Appearance) Assessed Assessed,Dry/ Scaly -Color (Tanisha-wound Skin Appearance) Assessed Assessed, Erythema -Temperature (Tanisha-wound Skin No Abnormality No Abnormality Appearance) (Pt Warm) (Pt Warm) -Tenderness on Palpation (Tanisha-wound No No Skin Appearance) -Ulcer Cleansing Rinsed/ Soap and Water Irrigated with Saline -Foul Odor after Cleansing No No -Anesthetic Used 5% Lidocaine 5% Lidocaine Gel Gel Right Calf (cm) 41.5 Right Ankle (cm) 25 WC - Nurse 2 - General Ulcer CM Notes Start: 06/05/24 13:14 Freq: Status: Active Protocol: Activity Type Activity Date Activity User E-sign Co-sign Detail Recorded Client Recorded Date Recorded By Document 06/05/24 13:49 DS [id number] 06/05/24 13:53 DS Document 06/12/24 15:58 DS [id number] 06/12/24 16:05 DS 06/05/24 06/12/24 13:49 15:58 Wound Center Nurse 2 #1 RT POST LE -Time 13:49 15:59 -Correct Patient Yes Yes -Correct Side, Site, Position Yes Yes -Correct Procedure Yes Yes -Procedure Performed Yes Yes -Type of Procedure Debridement Debridement -Clinical Debridement Subcutaneous Subcutaneous -Tissue Removed Subcutaneous Subcutaneous -Post Debridement (cm) - Length 2.0 2.0 -Post Debridement (cm) - Width 2.0 1.9 -Post Debridement (cm) - Depth 0.4 0.7 -Total Square (Post) (cm) 4.00 3.80 -Area of Debridement (cm) - Length 2.0 2.0 -Area of Debridement (cm) - Width 2.0 1.9 -Total Square (Area) (cm) 4.00 3.80 -Tunneling No No -Undermining/Tunneling No No -Circular Undermining No No -Wound/Ulcer Outcome Not Healed Not Healed -Ulcer Cleansing Rinsed/ Rinsed/ Irrigated with Irrigated with Saline Saline -Bioengineered Tissue No No -Bleeding Controlled with Pressure Pressure -Treatment Response Procedure Procedure Tolerated Well Tolerated Well -Debridement - Subq, 1st 20sq cm Yes Yes Pain Scale: 0-10 Numeric Is Patient Pain Free? Yes Yes - Nurse 3 - General Ulcer D/C NN Start: 06/05/24 13:14 Freq: Status: Active Protocol: Activity Type Activity Date Activity User E-sign Co-sign Detail Recorded Client Recorded Date Recorded By Document 06/05/24 14:04 KW [id number] 06/05/24 14:05 KW Document 06/12/24 16:16 RB [id number] 06/12/24 16:16 RB 06/05/24 06/12/24 14:04 16:16 Wound Care Center Nurse 3 #1 RT POST LE -Ulcer Cleansing Rinsed/ Irrigated with Saline -Primary Dressing Applied Aquacel AG 4x4 Aquacel AG 4x4 -Primary Dressing Covered/Secured with Dry Gauze & Dry Gauze, Roll Gauze, Secured with Secured with Tape Tape -Aquacel AG 4x4 1 1 Treatment Response Procedure Tolerated Well Pain Scale: 0-10 Numeric Is Patient Pain Free? Yes Yes - Visit Discharge Discharge Condition Stable Stable Ambulatory Status Ambulatory Ambulatory Transportation Private Auto Private Auto Medication Reconcilliation completed & No No provided to patient/care provider Clinical Summary of Care Provided Yes Yes Lab / Micro Data Micro: Microbiology 06/05/24 15:47 Wound - Leg Gram Stain - Final 06/05/24 15:47 Wound - Leg Wound Culture - Final Staphylococcus aureus Corynebacterium amycolatum 06/05/24 15:47 Wound - Leg Anaerobic Culture - Preliminary Clostridium clostridioforme Anaerobic cocci Charges/Coding Procedures Integumentary [id number]: [id number] Crystal subq tissue 20 sq cm/< Assessment/Plan Assessment/Plan (1) 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 layer exposed: CODE(S): L97.212 - 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 layer exposed (2) Traumatic open wound of right lower leg: CODE(S): S81.801A - Unspecified open wound, right lower leg, initial encounter QUALIFIERS: Encounter type: subsequent encounter Qualified Code(s): S81.801D - Unspecified open wound, right lower leg, subsequent encounter (3) Obesity (BMI 30-39.9): CODE(S): E66.9 - Obesity, unspecified (4) Hypertension: CODE(S): I10 - Essential (primary) hypertension (5) Hyperlipidemia: CODE(S): E78.5 - Hyperlipidemia, unspecified (6) History of : CODE(S): Z98.891 - History of uterine scar from previous surgery (7) Hx of colonoscopy: CODE(S): Z98.890 - Other specified postprocedural states (8) Hx of total knee arthroplasty: CODE(S): Z96.659 - Presence of unspecified artificial knee joint QUALIFIERS: Laterality: right Qualified Code(s): Z96.651 - Presence of right artificial knee joint (9) Hx of total knee arthroplasty: CODE(S): Z96.659 - Presence of unspecified artificial knee joint QUALIFIERS: Laterality: left Qualified Code(s): Z96.652 - Presence of left artificial knee joint (10) LENKA on CPAP: CODE(S): G47.33 - Obstructive sleep apnea (adult) (pediatric) (11) GERD (gastroesophageal reflux disease): CODE(S): K21.9 - Gastro-esophageal reflux disease without esophagitis (12) Diverticulosis: CODE(S): K57.90 - Diverticulosis of intestine, part unspecified, without perforation or abscess without bleeding PLAN: Plan This is a 59-year-old female who sustained trauma to her right posterior calf on May 11, 2024. She presented for definitive evaluation and management. At the patient's initial visit, a large amount of necrotic and nonviable tissue was present within the wound. The preponderance of the necrotic and nonviable tissue has now been eliminated. Bioburden remains, however. A wound debridement has been performed [facility]. We are to continue the use of Aquacel Ag, which will be applied topically on a daily basis. The patient has been instructed in the appropriate means of application. The patient has been advised to optimize her nutritional intake. The patient's recent bacterial culture was positive for Staphylococcus aureus and Corynebacterium amycolatum. Based upon the sensitivity results, the patient has been placed on Augmentin 500 mg p.o. twice daily for a total of 10 days. She is currently in the midst of this course of antibiotics. It appears as though the tanisha-wound cellulitic changes have diminished significantly. The patient has been advised to elevate her lower extremities as much as possible, to heart level, to minimize the likelihood of swelling and edema. The patient is to return in approximately 1 week for reevaluation. Because of the patient's work schedule, she has requested to be seen on an alternative day of the week, and her care will be assigned to another provider at our facility. Total time: 24 minutes
[2024-06-25 11:10] VITALS: BP 134/93; PULSE 102; RESP 18; TEMP 36.8; BMI 38.2
--- NOTE | 2024-06-25 12:27 | PN.PCM_ITS ---
History of Present Illness Date of Service: 06/25/24 Chief Complaint: Traumatic wound of the right posterolateral leg and skin tear to right medial leg History of Wound: This is a 59-year-old female who presented with a traumatic wound on the right posterior calf. On May 11, 2024, during an appointment with her family physician, the patient injured her right posterior calf while dismounting from the examination table. Her right calf impacted the examination table, creating an open wound, for which the patient has sought evaluation and management. The patient had been using antibiotic ointment topically. She denies chronic swelling in her lower extremities. She denies a history of thrombophlebitis. She is ambulatory, and is able to ambulate liberally without limitations. 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 She claims to lead an active lifestyle. She was being seen by another provider but his scheduled day did not work with her work schedule so she was changed to my schedule. Today, 06/25/24 she presents with a new skin tear on her right medial leg. She states that it occurred one week ago when she was changing her dressing on her posterolateral leg ulcer when her foot slipped off the chair she was using to prop her right leg on and she obtained a traumatic skin tear to her right medial leg. She has been dressing it with Aquacel-Ag daily when she changes the posterolateral ulcer. Progress of Wound: She was seeing another provider at the wound center but that day did not fit in with her work schedule, therefore, she was transferred to my schedule on Mondays Right posterolateral leg ulcer is stable. It is fibrous and continues to have some depth. She states that there is minimal drainage. She has been packing it with Aquacel-Ag daily. Her new right medial leg skin tear occurred last week when she was changing her dressing for the other ulcer. The right medial leg skin tear with some undermining on the left side of the wound. There is some non viable tissue in the skin flap present. Objective Data Objective Data Vital Signs: Vital Signs Temp Pulse Resp BP O2 Del Method 98.3 F 102 H 18 134/93 H Room Air 06/25/24 11:10 06/25/24 11:10 06/25/24 11:10 06/25/24 11:10 06/25/24 11:10 Oxygen Delivery Method Room Air Weight: 216 lb Body Mass Index (BMI) 38.2 Lab / Micro Data Micro: Microbiology 06/05/24 15:47 Wound - Leg Gram Stain - Final 06/05/24 15:47 Wound - Leg Wound Culture - Final Staphylococcus aureus Corynebacterium amycolatum 06/05/24 15:47 Wound - Leg Anaerobic Culture - Final Clostridium clostridioforme Anaerobic cocci Charges/Coding Procedures Integumentary [id number]: [id number] Crystal subq tissue 20 sq cm/< Add On Codes: 52540 Crystal subq tissue add-on Debridement Note Debridement Note Wound debrided: #1 posterolateral ulcer Laterality: Right Wound Grade/Stage: StageIII Type of Debridement: Excisional debridement Anesthesia Used: 5% Lidocaine Gel Depth: Down to and including healthy tissue and in the subcutaneous layer Percentage of wound debrided: 100 Instrument Used: 5mm curette Tissue Removed: Non viable tissue and slough Severity: Fat Layer Exposed Amount of bleeding with debridement: Mild Bleeding Controlled with: Pressure and Compression and gauze Patient tolerated procedure: Patient tolerated procedure well Post-Debridement Measurements and Additional Note: Post-Debridement Measurements/Treatment - Nurse 1 - General Ulcer Assessment Start: 06/05/24 13:14 Freq: Status: Active Protocol: .CAROLINE Activity Type Activity Date Activity User E-sign Co-sign Detail Recorded Client Recorded Date Recorded By Document 06/05/24 13:16 [id number] 06/05/24 13:28 Document 06/12/24 15:23 KW [id number] 06/12/24 15:28 Document 06/25/24 11:10 [id number] 06/25/24 11:19 06/05/24 06/12/24 06/25/24 13:16 15:23 11:10 - Today's Visit Information Type of service Initial Visit Follow-up Visit Follow-up Visit (Physician/CAE ENGINEER (Physician/CAE ENGINEER ) ) Arrival Mode Ambulatory Ambulatory Patient Identification Verified (Name & Yes Yes Yes ) Height and Weight Height 5 ft 3 in Weight 216 lb Weight in Pounds 216.0 lbs Weight Measurement Method Stated by Patient Body Mass Index (BMI) 38.2 38.2 38.2 BMI Classification Obese Obese Obese BSA - [place] 2.00 Vital Signs Temperature (97.8 F-99.1 F) 96.9 F L 96.8 F L 98.3 F Temperature Source Temporal Temporal Temporal Pulse Rate (60-100) 91 90 102 H Pulse Location Monitor Monitor Monitor Respiratory Rate (12-18) 16 18 18 Respiratory rate source Observation Observation Observation Oxygen Delivery Method Room Air Room Air Room Air Blood Pressure (90/60-120/80) 184/97 H 158/89 H 134/93 H Blood Pressure Mean (mm Hg) 126 112 106 Source Monitor Monitor Monitor Position Sitting Semi-Fowlers Sitting Blood Pressure Location Left Arm Left Arm Left Arm History Since Last Visit- (Skip if this is Patient's initial visit) Have you changed medications since your No No last visit? Any new allergies or adverse reactions No No Had a fall/change in ADL's that may No No increase risk of falls Signs or symptoms of abuse and/or No No neglect since last visit Have you been in the hospital since your No Yes last visit? Has dressing in place as prescribed Yes Yes Has compression in place as prescribed N/A Yes Has offloadiing in place as prescribed N/A N/A Experienced any changes in pain level or No No management Left Footwear Regular Shoe Regular Shoe Regular Shoe Right Footwear Regular Shoe Regular Shoe Regular Shoe Pain Scale: 0-10 Numeric Is Patient Pain Free? No Yes Yes RLE -Comments ONLY WHEN BEING TOUCHED Communication Assessment Preferred language Georgian Ground Operations Superintendent Required No Able to Read Yes Able to Write Yes Communication Tools None Caregiver Communication Skills No Impairment Impairment Right Hearing Abillity Normal Left Hearing Abillity Normal Visual Assistive Devices Glasses Teaching Assessment Preferences Verbal,Written Barriers to Learning None Readiness To Learn Excellent Willingness to Engage in Self Management High Activies Readiness to Engage in Self Management High Activities Anxiety Level Calm Cooperation Cooperative Perception Coherent Interest in Health Problem Asks Questions Education Importance Acknowledges Need Does Patient Smoke tobacco or other Yes substances Smoking Status Former smoker Is Patient Diabetic No Functional Assessment Recent Decline in Ability to Perform Denies Any Declines 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 Tie Presser to contact place of yazdanism No WC - Nurse 1 - General Ulcer Measurement Start: 06/05/24 13:14 Freq: Status: Active Protocol: Activity Type Activity Date Activity User E-sign Co-sign Detail Recorded Client Recorded Date Recorded By Document 06/05/24 13:16 KW [id number] 06/05/24 13:28 KW Edit Result 06/05/24 13:16 KW (1) [id number] 06/05/24 13:40 KW Document 06/12/24 15:23 KW [id number] 06/12/24 15:28 KW Document 06/25/24 11:10 KW [id number] 06/25/24 11:19 KW (1) #1 RT POST LE - Current Size (cm) - Length => 1.8 - Current Size (cm) - Width => 1.8 - Current Size (cm) - Depth => 0.5 - Total Square Cm => 3.24 Right Calf (cm) => 41.5 Right Ankle (cm) => 25 06/05/24 06/12/24 06/25/24 13:16 15:23 11:10 Wound Center Nurse 1 #2 R MED LE -Current Size (cm) - Length 7.8 -Current Size (cm) - Width 0.9 -Current Size (cm) - Depth 0.2 -Total Square Cm 7.02 -Date of Last Picture (Recall this 06/25/24 field) -Exudate Amt Small -Exudate Type Serosanguineous -Wound Margin Distinct, Outline Attached -Granulation Amt Large (67-100%) -Granulation Quality Red -Texture (Tanisha-wound Skin Appearance) Assessed, Friable -Moisture (Tanisha-wound Skin Appearance) Assessed -Color (Tanisha-wound Skin Appearance) Assessed, Ecchymosis -Temperature (Tanisha-wound Skin No Abnormality Appearance) (Pt Warm) -Tenderness on Palpation (Tanisha-wound No Skin Appearance) -Ulcer Cleansing Rinsed/ Irrigated with Saline -Foul Odor after Cleansing No -Anesthetic Used 5% Lidocaine Gel #1 RT POST LE -Current Size (cm) - Length 1.8 1.4 1.8 -Current Size (cm) - Width 1.8 1.7 1.5 -Current Size (cm) - Depth 0.5 0.4 0.4 -Total Square Cm 3.24 2.38 2.70 -Date of Last Picture (Recall this 06/25/24 field) -Exudate Amt None Present Small Medium -Exudate Type Serosanguineous Serosanguineous -Wound Margin Distinct, Distinct, Distinct, Outline Outline Outline Attached Attached Attached -Granulation Amt Small (1-33%) Medium (34-66%) Large (67-100%) -Granulation Quality Red Red [place],Red -Necrosis Amt Large (67-100%) Medium (34-66%) -Necrotic Tissue Type Eschar Adherent Slough -Texture (Tanisha-wound Skin Appearance) Assessed Assessed Assessed -Moisture (Tanisha-wound Skin Appearance) Assessed Assessed,Dry/ Assessed Scaly -Color (Tanisha-wound Skin Appearance) Assessed Assessed, Assessed, Erythema Erythema -Temperature (Tanisha-wound Skin No Abnormality No Abnormality No Abnormality Appearance) (Pt Warm) (Pt Warm) (Pt Warm) -Tenderness on Palpation (Tanisha-wound No No No Skin Appearance) -Ulcer Cleansing Rinsed/ Soap and Water Rinsed/ Irrigated with Irrigated with Saline Saline -Foul Odor after Cleansing No No No -Anesthetic Used 5% Lidocaine 5% Lidocaine 5% Lidocaine Gel Gel Gel Right Calf (cm) 41.5 Right Ankle (cm) 25 WC - Nurse 2 - General Ulcer CM Notes Start: 06/05/24 13:14 Freq: Status: Active Protocol: Activity Type Activity Date Activity User E-sign Co-sign Detail Recorded Client Recorded Date Recorded By Document 06/05/24 13:49 DS [id number] 06/05/24 13:53 DS Document 06/12/24 15:58 DS [id number] 06/12/24 16:05 DS Document 06/25/24 11:55 JF [id number] 06/25/24 12:06 06/05/24 06/12/24 06/25/24 13:49 15:58 11:55 Wound Center Nurse 2 #2 [facility] LE -Time 11:56 -Correct Patient Yes -Correct Side, Site, Position Yes -Correct Procedure Yes -Procedure Performed Yes -Type of Procedure Debridement -Clinical Debridement Subcutaneous -Tissue Removed Subcutaneous -Post Debridement (cm) - Length 8.0 -Post Debridement (cm) - Width 2.3 -Post Debridement (cm) - Depth 0.3 -Total Square (Post) (cm) 18.40 -Area of Debridement (cm) - Length 8.0 -Area of Debridement (cm) - Width 2.3 -Total Square (Area) (cm) 18.40 -Tunneling No -Undermining/Tunneling Yes -Undermining/Tunneling Starts (O'clock 6 ) -Undermining/Tunneling Ends (O'clock) 7 -Maximum Distance (cm) 1.0 -Circular Undermining No -Wound/Ulcer Outcome Not Healed -Ulcer Cleansing Rinsed/ Irrigated with Saline -Foul Odor after Cleansing No -Bioengineered Tissue No -Bleeding Controlled with Pressure -Treatment Response Procedure Tolerated Well -Offloading No -Debridement - Subq, 1st 20sq cm No #1 RT POST LE -Time 13:49 15:59 11:56 -Correct Patient Yes Yes Yes -Correct Side, Site, Position Yes Yes Yes -Correct Procedure Yes Yes Yes -Procedure Performed Yes Yes Yes -Type of Procedure Debridement Debridement Debridement -Clinical Debridement Subcutaneous Subcutaneous Subcutaneous -Tissue Removed Subcutaneous Subcutaneous Subcutaneous -Post Debridement (cm) - Length 2.0 2.0 2.0 -Post Debridement (cm) - Width 2.0 1.9 2.0 -Post Debridement (cm) - Depth 0.4 0.7 0.3 -Total Square (Post) (cm) 4.00 3.80 4.00 -Area of Debridement (cm) - Length 2.0 2.0 2.0 -Area of Debridement (cm) - Width 2.0 1.9 2.0 -Total Square (Area) (cm) 4.00 3.80 4.00 -Tunneling No No No -Undermining/Tunneling No No No -Circular Undermining No No No -Wound/Ulcer Outcome Not Healed Not Healed Not Healed -Ulcer Cleansing Rinsed/ Rinsed/ Rinsed/ Irrigated with Irrigated with Irrigated with Saline Saline Saline -Foul Odor after Cleansing No -Bioengineered Tissue No No No -Bleeding Controlled with Pressure Pressure Pressure -Treatment Response Procedure Procedure Procedure Tolerated Well Tolerated Well Tolerated Well -Offloading No -Debridement - Subq, 1st 20sq cm Yes Yes Yes -Debridement, SubQ, ea addt'l 20sq cm 1 or part thereof Pain Scale: 0-10 Numeric Is Patient Pain Free? Yes Yes Yes - Nurse 3 - General Ulcer D/C NN Start: 06/05/24 13:14 Freq: Status: Active Protocol: Activity Type Activity Date Activity User E-sign Co-sign Detail Recorded Client Recorded Date Recorded By Document 06/05/24 14:04 KW [id number] 06/05/24 14:05 KW Document 06/12/24 16:16 RB [id number] 06/12/24 16:16 RB Document 06/25/24 12:09 ML [id number] 06/25/24 12:11 ML 06/05/24 06/12/24 06/25/24 14:04 16:16 12:09 Wound Care Center Nurse 3 #2 R MED LE -Ulcer Cleansing Rinsed/ Irrigated with Saline -Primary Dressing Applied Aquacel AG 4x4, Mepilex Border -Aquacel AG 4x4 1 -Mepilex Border 1 #1 RT POST LE -Ulcer Cleansing Rinsed/ Rinsed/ Irrigated with Irrigated with Saline Saline -Primary Dressing Applied Aquacel AG 4x4 Aquacel AG 4x4 Aquacel AG 4x4, Mepilex Border -Primary Dressing Covered/Secured with Dry Gauze & Dry Gauze, Roll Gauze, Secured with Secured with Tape Tape -Aquacel AG 4x4 1 1 1 -Mepilex Border 1 Right -Tubular Bandage Double Layer -Size of Tubigrip Used Size E -Size E ($) 2 Treatment Response Procedure Tolerated Well Pain Scale: 0-10 Numeric Is Patient Pain Free? Yes Yes Yes WC - Visit Discharge Discharge Condition Stable Stable Ambulatory Status Ambulatory Ambulatory Transportation Private Auto Private Auto Medication Reconcilliation completed & No No provided to patient/care provider Clinical Summary of Care Provided Yes Yes Additional Wound Wound debrided: #2 right medial leg wound Laterality: Right Wound Grade/Stage: Stage III Type of Debridement: Excisional debridement Anesthesia Used: 5% Lidocaine Gel Depth: Down to and including healthy tissue and in the subcutaneous layer Percentage of wound debrided: 100 Instrument Used: 5mm curette and - (scissors and pick ups) Tissue Removed: Non viable tissue and slough Severity: Fat Layer Exposed Amount of bleeding with debridement: Mild Bleeding Controlled with: Compression and gauze Patient tolerated procedure: Patient tolerated procedure well Assessment/Plan Assessment/Plan (1) Traumatic open wound of right lower leg: CODE(S): S81.801A - Unspecified open wound, right lower leg, initial encounter QUALIFIERS: Encounter type: subsequent encounter Qualified Code(s): S81.801D - Unspecified open wound, right lower leg, subsequent encounter (2) 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 layer exposed: CODE(S): L97.212 - 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 Wound care - To both the right posterior lateral leg ulcer and the right medial skin tear/wound place Aquacel-Ag daily covered with ABD/gauze/silicone border dressing after gently washing with soap and water. Compression - Double tubigrip (she has good pedal pulses bilaterally). This will assist with preventing leg swelling while she is at work on her feet all day. When she gets home, encouraged to keep legs elevated. Follow up one week. Call or come in sooner if develop any concerns.
--- NOTE | 2024-06-26 09:13 | WC ---
PHOTO 06/25/24 RIGHT [facility]
--- NOTE | 2024-06-26 09:15 | WC ---
PHOTO 06/25/24 RIGHT POST LE
== END 2024-06-25 23:59 | disposition home or self-care (01) ==
LOC: WC 11:00
PROVIDERS: PCP Internal Medicine; Referring Provider Physician Assistant; Visit Provider Surgery
DX: L97.212 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 layer exposed (principal); G47.33 Obstructive sleep apnea (adult) (pediatric); E66.9 Obesity, unspecified; K21.9 Gastro-esophageal reflux disease without esophagitis; E78.5 Hyperlipidemia, unspecified; Z87.891 Personal history of nicotine dependence; I10 Essential (primary) hypertension; K57.90 Diverticulosis of intestine, part unspecified, without perforation or abscess without bleeding; Z68.38 Body mass index [BMI] 38.0-38.9, adult; Z96.659 Presence of unspecified artificial knee joint; S81.801D Unspecified open wound, right lower leg, subsequent encounter
CPT/HCPCS: 11042; 11045; 87070; 87075; 87077; 87186; 87205; 99213; G0463

== ENCOUNTER 2024-07-20 13:00 | Outpatient (RCR) | payer OTHER, SELFPAY ==
[2024-06-26 00:25] VITALS: BP 134/93; PULSE 102; RESP 18; TEMP 36.8; BMI 38.2
[2024-07-02 11:23] VITALS: BP 141/79; PULSE 90; RESP 18; TEMP 36.6; BMI 38.2
--- NOTE | 2024-07-02 12:26 | PCM.WC.PN ---
History of Present Illness Date of Service: 07/02/24 Chief Complaint: Traumatic wound of the right posterolateral leg and skin tear to right medial leg History of Wound: This is a 59-year-old female who presented with a traumatic wound on the right posterior calf. On May 11, 2024, during an appointment with her family physician, the patient injured her right posterior calf while dismounting from the examination table. Her right calf impacted the examination table, creating an open wound, for which the patient has sought evaluation and management. The patient had been using antibiotic ointment topically. She denies chronic swelling in her lower extremities. She denies a history of thrombophlebitis. She is ambulatory, and is able to ambulate liberally without limitations. 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 She claims to lead an active lifestyle. She was being seen by another provider but his scheduled day did not work with her work schedule so she was changed to my schedule. Today, 06/25/24 she presents with a new skin tear on her right medial leg. She states that it occurred one week ago when she was changing her dressing on her posterolateral leg ulcer when her foot slipped off the chair she was using to prop her right leg on and she obtained a traumatic skin tear to her right medial leg. She has been dressing it with Aquacel-Ag daily when she changes the posterolateral ulcer. Progress of Wound: Right posterolateral leg ulcer is slightly smaller. It appears less fibrous today. She states that there is minimal drainage. She has been packing it with Aquacel-Ag daily. Her right medial leg wound is stabilizing, less non viable tissue present, undermining is resolving. Objective Data Objective Data Vital Signs: Vital Signs Temp Pulse Resp BP 98 F 90 18 141/79 H 07/02/24 11:23 07/02/24 11:23 07/02/24 11:23 07/02/24 11:23 Weight: 216 lb Body Mass Index (BMI) 38.2 Charges/Coding Procedures Integumentary 111xxx-113xx: 47033 Crystal subq tissue 20 sq cm/< Add On Codes: 29925 Crystal subq tissue add-on Debridement Note Debridement Note Wound debrided: #1 posterolateral ulcer Laterality: Right Wound Grade/Stage: StageIII Type of Debridement: Excisional debridement Anesthesia Used: 5% Lidocaine Gel Depth: Down to and including healthy tissue and in the subcutaneous layer Percentage of wound debrided: 100 Instrument Used: 5mm curette Tissue Removed: Non viable tissue and slough Severity: Fat Layer Exposed Amount of bleeding with debridement: Mild Bleeding Controlled with: Pressure and Compression and gauze Patient tolerated procedure: Patient tolerated procedure well Post-Debridement Measurements and Additional Note: Post-Debridement Measurements/Treatment RAMONITA - Nurse 1 - General Ulcer Assessment Start: 07/02/24 11:21 Freq: Status: Active Protocol: ABDIEL Activity Type Activity Date Activity User E-sign Co-sign Detail Recorded Client Recorded Date Recorded By Document 07/02/24 11:23 DL [id number] 07/02/24 11:29 DL 07/02/24 11:23 WC - Today's Visit Information Type of service Follow-up Visit (Physician/BARTENDER HELPER ) Arrival Mode Ambulatory Transfer Assistance None Patient Identification Verified (Name & Yes ) Patient Requires Transmission-Based No Precautions Height and Weight Body Mass Index (BMI) 38.2 BMI Classification Obese Vital Signs Temperature (97.8 F-99.1 F) 98 F Temperature Source Temporal Pulse Rate (60-100) 90 Pulse Location Monitor Respiratory Rate (12-18) 18 Respiratory rate source Observation Blood Pressure (90/60-120/80) 141/79 H Blood Pressure Mean (mm Hg) 99 Source Monitor History Since Last Visit- (Skip if this is Patient's initial visit) Have you changed medications since your No last visit? Any new allergies or adverse reactions No Had a fall/change in ADL's that may No increase risk of falls Signs or symptoms of abuse and/or No neglect since last visit Have you been in the hospital since your No last visit? Has dressing in place as prescribed Yes Has compression in place as prescribed Yes Has offloadiing in place as prescribed N/A Experienced any changes in pain level or No management Pain Scale: 0-10 Numeric Is Patient Pain Free? Yes - Nurse 1 - General Ulcer Measurement Start: 07/02/24 11:21 Freq: Status: Active Protocol: Activity Type Activity Date Activity User E-sign Co-sign Detail Recorded Client Recorded Date Recorded By Document 07/02/24 11:23 DL [id number] 07/02/24 11:29 DL 07/02/24 11:23 Wound Center Nurse 1 #2 R MED LE -Combined with other wound No -Current Size (cm) - Length 7.5 -Current Size (cm) - Width 2.4 -Current Size (cm) - Depth 0.1 -Total Square Cm 18.00 -Tunneling No -Undermining/Tunneling No -Circular Undermining No -Exudate Amt Medium -Exudate Type Serosanguineous -Wound Margin Distinct, Outline Attached -Granulation Amt Medium (34-66%) -Granulation Quality Red -Slough/Fibrin Yes -Necrosis Amt Medium (34-66%) -Necrotic Tissue Type Adherent Slough -Texture (Tanisha-wound Skin Appearance) Assessed, Scarring -Moisture (Tanisha-wound Skin Appearance) Assessed, Maceration,Dry/ Scaly -Color (Tanisha-wound Skin Appearance) Assessed -Temperature (Tanisha-wound Skin No Abnormality Appearance) (Pt Warm) -Tenderness on Palpation (Tanisha-wound No Skin Appearance) -Ulcer Cleansing Rinsed/ Irrigated with Saline -Anesthetic Used 5% Lidocaine Gel #1 RT POST LE -Combined with other wound No -Current Size (cm) - Length 1.8 -Current Size (cm) - Width 1 -Current Size (cm) - Depth 0.2 -Total Square Cm 1.8 -Epithelialization Small 1-33% -Tunneling No -Undermining/Tunneling No -Circular Undermining No -Exudate Amt Medium -Exudate Type Serosanguineous -Wound Margin Distinct, Outline Attached -Granulation Amt Medium (34-66%) -Granulation Quality Red -Slough/Fibrin Yes -Necrosis Amt Medium (34-66%) -Necrotic Tissue Type Adherent Slough -Texture (Tanisha-wound Skin Appearance) Assessed, Scarring -Moisture (Tanisha-wound Skin Appearance) Assessed,Dry/ Scaly -Color (Tanisha-wound Skin Appearance) Assessed -Temperature (Tanisha-wound Skin No Abnormality Appearance) (Pt Warm) -Tenderness on Palpation (Tanisha-wound No Skin Appearance) -Ulcer Cleansing Rinsed/ Irrigated with Saline -Foul Odor after Cleansing No -Anesthetic Used 5% Lidocaine Gel Right Calf (cm) 38.5 Right Ankle (cm) 23 WC - Nurse 2 - General Ulcer CM Notes Start: 07/02/24 11:21 Freq: Status: Active Protocol: Activity Type Activity Date Activity User E-sign Co-sign Detail Recorded Client Recorded Date Recorded By Document 07/02/24 11:36 DINAH [id number] 07/02/24 11:43 JF 07/02/24 11:36 Wound Center Nurse 2 #2 R MED LE -Time 11:38 -Correct Patient Yes -Correct Side, Site, Position Yes -Correct Procedure Yes -Procedure Performed Yes -Type of Procedure Debridement -Clinical Debridement Subcutaneous -Tissue Removed Subcutaneous -Post Debridement (cm) - Length 7.7 -Post Debridement (cm) - Width 3.0 -Post Debridement (cm) - Depth 0.3 -Total Square (Post) (cm) 23.10 -Area of Debridement (cm) - Length 7.7 -Area of Debridement (cm) - Width 3.0 -Total Square (Area) (cm) 23.10 -Tunneling No -Undermining/Tunneling Yes -Undermining/Tunneling Starts (O'clock 6 ) -Undermining/Tunneling Ends (O'clock) 7 -Maximum Distance (cm) 0.3 -Circular Undermining No -Wound/Ulcer Outcome Not Healed -Ulcer Cleansing Rinsed/ Irrigated with Saline -Foul Odor after Cleansing No -Bioengineered Tissue No -Bleeding Controlled with Pressure -Treatment Response Procedure Tolerated Well -Offloading No -Debridement - Subq, 1st 20sq cm No #1 RT POST LE -Time 11:38 -Correct Patient Yes -Correct Side, Site, Position Yes -Correct Procedure Yes -Procedure Performed Yes -Type of Procedure Debridement -Clinical Debridement Subcutaneous -Tissue Removed Subcutaneous -Post Debridement (cm) - Length 1.8 -Post Debridement (cm) - Width 1.6 -Post Debridement (cm) - Depth 0.2 -Total Square (Post) (cm) 2.88 -Area of Debridement (cm) - Length 1.8 -Area of Debridement (cm) - Width 1.6 -Total Square (Area) (cm) 2.88 -Tunneling No -Undermining/Tunneling No -Circular Undermining No -Wound/Ulcer Outcome Not Healed -Ulcer Cleansing Rinsed/ Irrigated with Saline -Foul Odor after Cleansing No -Bioengineered Tissue No -Bleeding Controlled with Pressure -Treatment Response Procedure Tolerated Well -Offloading No -Debridement - Subq, 1st 20sq cm Yes -Debridement, SubQ, ea addt'l 20sq cm 1 or part thereof Pain Scale: 0-10 Numeric Is Patient Pain Free? Yes WC - Nurse 3 - General Ulcer D/C NN Start: 07/02/24 11:21 Freq: Status: Active Protocol: Activity Type Activity Date Activity User E-sign Co-sign Detail Recorded Client Recorded Date Recorded By Document 07/02/24 11:54 [facility] [id number] 07/02/24 11:55 [facility] 07/02/24 11:54 Wound Care Center Nurse 3 #2 R MED LE -Ulcer Cleansing Rinsed/ Irrigated with Saline -Foul Odor after Cleansing No -Primary Dressing Applied Aquacel AG 4x4 -Other Dressing per kw food service sales representatives -Primary Dressing Covered/Secured with Dry Gauze, Secured with Tape -Other Covering abd -Aquacel AG 4x4 1 #1 RT POST LE -Ulcer Cleansing Rinsed/ Irrigated with Saline -Foul Odor after Cleansing No -Primary Dressing Applied Aquacel AG 4x4 -Other Dressing abd -Primary Dressing Covered/Secured with Secured with Tape -Other Covering drsg per kw food service sales representatives -Aquacel AG 4x4 1 Right -Tubular Bandage Double Layer -Size of Tubigrip Used Size E -Size E ($) 2 -Other sent an extra Treatment Response Procedure Tolerated Well Pain Scale: 0-10 Numeric Is Patient Pain Free? Yes WC - Visit Discharge Discharge Condition Stable Ambulatory Status Ambulatory Transportation Private Auto Additional Wound Wound debrided: #2 right medial leg wound Laterality: Right Wound Grade/Stage: Stage III Type of Debridement: Excisional debridement Anesthesia Used: 5% Lidocaine Gel Depth: Down to and including healthy tissue and in the subcutaneous layer Percentage of wound debrided: 100 Instrument Used: 7mm curette Tissue Removed: Non viable tissue and slough Severity: Fat Layer Exposed Amount of bleeding with debridement: Mild Bleeding Controlled with: Compression and gauze Patient tolerated procedure: Patient tolerated procedure well Assessment/Plan Assessment/Plan (1) 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 layer exposed: CODE(S): L97.212 - 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 layer exposed (2) Traumatic open wound of right lower leg: CODE(S): S81.801A - Unspecified open wound, right lower leg, initial encounter QUALIFIERS: Encounter type: subsequent encounter Qualified Code(s): S81.801D - Unspecified open wound, right lower leg, subsequent encounter (3) Non-pressure chronic ulcer of calf with fat layer exposed: CODE(S): L97.202 - Non-pressure chronic ulcer of unspecified calf with fat layer exposed QUALIFIERS: Laterality: right Qualified Code(s): L97.212 - 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 To her right posterolateral leg ulcer, she would benefit from an advanced wound healing product such as Epifix. It would help expedite her ulcer healing. Wound care - To both the right posterior lateral leg ulcer and the right medial skin tear/wound place Aquacel-Ag daily covered with ABD/gauze/silicone border dressing after gently washing with soap and water. Compression - Double tubigrip (she has good pedal pulses bilaterally). This will assist with preventing leg swelling while she is at work on her feet all day. When she gets home, encouraged to keep legs elevated. Follow up one week. Call or come in sooner if develop any concerns.
[2024-07-09 11:34] VITALS: BP 149/73; PULSE 93; RESP 18; TEMP 36.1; BMI 38.2
--- NOTE | 2024-07-09 16:51 | PN.PCM_ITS ---
History of Present Illness Date of Service: 07/09/24 Chief Complaint: Traumatic wound of the right posterolateral leg and skin tear to right medial leg History of Wound: This is a 59-year-old female who presented with a traumatic wound on the right posterior calf. On May 11, 2024, during an appointment with her family physician, the patient injured her right posterior calf while dismounting from the examination table. Her right calf impacted the examination table, creating an open wound, for which the patient has sought evaluation and management. The patient had been using antibiotic ointment topically. She denies chronic swelling in her lower extremities. She denies a history of thrombophlebitis. She is ambulatory, and is able to ambulate liberally without limitations. 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 She claims to lead an active lifestyle. She was being seen by another provider but his scheduled day did not work with her work schedule so she was changed to my schedule. Today, 06/25/24 she presents with a new skin tear on her right medial leg. She states that it occurred one week ago when she was changing her dressing on her posterolateral leg ulcer when her foot slipped off the chair she was using to prop her right leg on and she obtained a traumatic skin tear to her right medial leg. She has been dressing it with Aquacel-Ag daily when she changes the posterolateral ulcer. Progress of Wound: Right posterolateral leg ulcer is slightly smaller with nice beefy pink wound bed. She states that there is minimal drainage. She has been placing Aquacel- Ag daily on it. Her right medial leg wound is stabilizing, less non viable tissue present, undermining is resolving. Objective Data Objective Data Vital Signs: Vital Signs Temp Pulse Resp BP O2 Del Method 97.0 F L 93 18 149/73 H Room Air 07/09/24 11:34 07/09/24 11:34 07/09/24 11:34 07/09/24 11:34 07/09/24 11:34 Oxygen Delivery Method Room Air Weight: 216 lb Body Mass Index (BMI) 38.2 Charges/Coding Procedures Integumentary 111xxx-113xx: [id number] Crystal subq tissue 20 sq cm/< Add On Codes: 45158 Crystal subq tissue add-on Debridement Note Debridement Note Wound debrided: #1 posterolateral ulcer Laterality: Right Wound Grade/Stage: StageIII Type of Debridement: Excisional debridement Anesthesia Used: 5% Lidocaine Gel Depth: Down to and including healthy tissue and in the subcutaneous layer Percentage of wound debrided: 100 Instrument Used: 5mm curette Tissue Removed: Non viable tissue and slough Severity: Fat Layer Exposed Amount of bleeding with debridement: Mild Bleeding Controlled with: Pressure and Compression and gauze Patient tolerated procedure: Patient tolerated procedure well Post-Debridement Measurements and Additional Note: Post-Debridement Measurements/Treatment - Nurse 1 - General Ulcer Assessment Start: 07/02/24 11:21 Freq: Status: Active Protocol: [employer] Activity Type Activity Date Activity User E-sign Co-sign Detail Recorded Client Recorded Date Recorded By Document 07/02/24 11:23 DL [id number] 07/02/24 11:29 DL Document 07/09/24 11:34 KW [id number] 07/09/24 11:39 KW 07/02/24 07/09/24 11:23 11:34 - Today's Visit Information Type of service Follow-up Visit Follow-up Visit (Physician/MODERN DANCER (Physician/MODERN DANCER ) ) Arrival Mode Ambulatory Ambulatory Transfer Assistance None Patient Identification Verified (Name & Yes Yes ) Patient Requires Transmission-Based No Precautions Height and Weight Body Mass Index (BMI) 38.2 38.2 BMI Classification Obese Obese Vital Signs Temperature (97.8 F-99.1 F) 98 F 97.0 F L Temperature Source Temporal Temporal Pulse Rate (60-100) 90 93 Pulse Location Monitor Monitor Respiratory Rate (12-18) 18 18 Respiratory rate source Observation Observation Oxygen Delivery Method Room Air Blood Pressure (90/60-120/80) 141/79 H 149/73 H Blood Pressure Mean (mm Hg) 99 98 Source Monitor Monitor Position Semi-Fowlers Blood Pressure Location Left Arm History Since Last Visit- (Skip if this is Patient's initial visit) Have you changed medications since your No No last visit? Any new allergies or adverse reactions No No Had a fall/change in ADL's that may No No increase risk of falls Signs or symptoms of abuse and/or No No neglect since last visit Have you been in the hospital since your No No last visit? Has dressing in place as prescribed Yes Yes Has compression in place as prescribed Yes Yes Has offloadiing in place as prescribed N/A N/A Experienced any changes in pain level or No No management Left Footwear Regular Shoe Right Footwear Regular Shoe Pain Scale: 0-10 Numeric Is Patient Pain Free? Yes Yes WC - Nurse 1 - General Ulcer Measurement Start: 07/02/24 11:21 Freq: Status: Active Protocol: Activity Type Activity Date Activity User E-sign Co-sign Detail Recorded Client Recorded Date Recorded By Document 07/02/24 11:23 DL [id number] 07/02/24 11:29 DL Document 07/09/24 11:34 KW [id number] 07/09/24 11:39 KW 07/02/24 07/09/24 11:23 11:34 Wound Center Nurse 1 #2 R MED LE -Combined with other wound No -Current Size (cm) - Length 7.5 7.5 -Current Size (cm) - Width 2.4 2.8 -Current Size (cm) - Depth 0.1 0.1 -Total Square Cm 18.00 21.00 -Tunneling No -Undermining/Tunneling No -Circular Undermining No -Exudate Amt Medium Medium -Exudate Type Serosanguineous Serosanguineous -Wound Margin Distinct, Distinct, Outline Outline Attached Attached -Granulation Amt Medium (34-66%) Large (67-100%) -Granulation Quality Red Red -Slough/Fibrin Yes -Necrosis Amt Medium (34-66%) -Necrotic Tissue Type Adherent Slough -Texture (Tanisha-wound Skin Appearance) Assessed, Assessed Scarring -Moisture (Tanisha-wound Skin Appearance) Assessed, Assessed Maceration,Dry/ Scaly -Color (Tanisha-wound Skin Appearance) Assessed Assessed, Erythema -Temperature (Tanisha-wound Skin No Abnormality No Abnormality Appearance) (Pt Warm) (Pt Warm) -Tenderness on Palpation (Tanisha-wound No No Skin Appearance) -Ulcer Cleansing Rinsed/ Soap and Water Irrigated with Saline -Foul Odor after Cleansing No -Anesthetic Used 5% Lidocaine 5% Lidocaine Gel Gel #1 RT POST LE -Combined with other wound No -Current Size (cm) - Length 1.8 1.6 -Current Size (cm) - Width 1 1 -Current Size (cm) - Depth 0.2 0.2 -Total Square Cm 1.8 1.6 -Epithelialization Small 1-33% -Tunneling No -Undermining/Tunneling No -Circular Undermining No -Exudate Amt Medium Medium -Exudate Type Serosanguineous Serosanguineous -Wound Margin Distinct, Distinct, Outline Outline Attached Attached -Granulation Amt Medium (34-66%) Large (67-100%) -Granulation Quality Red Red -Slough/Fibrin Yes -Necrosis Amt Medium (34-66%) -Necrotic Tissue Type Adherent Slough -Texture (Tanisha-wound Skin Appearance) Assessed, Assessed Scarring -Moisture (Tanisha-wound Skin Appearance) Assessed,Dry/ Assessed Scaly -Color (Tanisha-wound Skin Appearance) Assessed Assessed, Erythema -Temperature (Tanisha-wound Skin No Abnormality No Abnormality Appearance) (Pt Warm) (Pt Warm) -Tenderness on Palpation (Tanisha-wound No No Skin Appearance) -Ulcer Cleansing Rinsed/ Soap and Water Irrigated with Saline -Foul Odor after Cleansing No No -Anesthetic Used 5% Lidocaine 5% Lidocaine Gel Gel Right Calf (cm) 38.5 39 Right Ankle (cm) 23 23 WC - Nurse 2 - General Ulcer CM Notes Start: 07/02/24 11:21 Freq: Status: Active Protocol: Activity Type Activity Date Activity User E-sign Co-sign Detail Recorded Client Recorded Date Recorded By Document 07/02/24 11:36 [id number] 07/02/24 11:43 Document 07/09/24 12:03 [facility] [id number] 07/09/24 12:13 [facility] 07/02/24 07/09/24 11:36 12:03 Wound Center Nurse 2 #2 R MED LE -Time 11:38 12:06 -Correct Patient Yes Yes -Correct Side, Site, Position Yes Yes -Correct Procedure Yes Yes -Procedure Performed Yes Yes -Type of Procedure Debridement Debridement -Clinical Debridement Subcutaneous Subcutaneous -Tissue Removed Subcutaneous Subcutaneous -Post Debridement (cm) - Length 7.7 7.5 -Post Debridement (cm) - Width 3.0 3 -Post Debridement (cm) - Depth 0.3 0.4 -Total Square (Post) (cm) 23.10 22.5 -Area of Debridement (cm) - Length 7.7 7.5 -Area of Debridement (cm) - Width 3.0 3 -Total Square (Area) (cm) 23.10 22.5 -Tunneling No No -Undermining/Tunneling Yes No -Undermining/Tunneling Starts (O'clock 6 ) -Undermining/Tunneling Ends (O'clock) 7 -Maximum Distance (cm) 0.3 -Circular Undermining No No -Wound/Ulcer Outcome Not Healed Not Healed -Ulcer Cleansing Rinsed/ Rinsed/ Irrigated with Irrigated with Saline Saline -Foul Odor after Cleansing No No -Bioengineered Tissue No No -Bleeding Controlled with Pressure Pressure -Treatment Response Procedure Procedure Tolerated Well Tolerated Well -Offloading No -Debridement - Subq, 1st 20sq cm No Yes -Debridement, SubQ, ea addt'l 20sq cm 1 or part thereof #1 RT POST LE -Time 11:38 12:04 -Correct Patient Yes Yes -Correct Side, Site, Position Yes Yes -Correct Procedure Yes Yes -Procedure Performed Yes Yes -Type of Procedure Debridement Debridement -Clinical Debridement Subcutaneous Subcutaneous -Tissue Removed Subcutaneous Subcutaneous -Post Debridement (cm) - Length 1.8 1.8 -Post Debridement (cm) - Width 1.6 1.3 -Post Debridement (cm) - Depth 0.2 0.2 -Total Square (Post) (cm) 2.88 2.34 -Area of Debridement (cm) - Length 1.8 1.8 -Area of Debridement (cm) - Width 1.6 1.3 -Total Square (Area) (cm) 2.88 2.34 -Tunneling No No -Undermining/Tunneling No No -Circular Undermining No No -Wound/Ulcer Outcome Not Healed Not Healed -Ulcer Cleansing Rinsed/ Rinsed/ Irrigated with Irrigated with Saline Saline -Foul Odor after Cleansing No No -Bioengineered Tissue No No -Bleeding Controlled with Pressure Pressure -Treatment Response Procedure Procedure Tolerated Well Tolerated Well -Offloading No -Debridement - Subq, 1st 20sq cm Yes No -Debridement, SubQ, ea addt'l 20sq cm 1 or part thereof Pain Scale: 0-10 Numeric Is Patient Pain Free? Yes Yes WC - Nurse 3 - General Ulcer D/C NN Start: 07/02/24 11:21 Freq: Status: Active Protocol: Activity Type Activity Date Activity User E-sign Co-sign Detail Recorded Client Recorded Date Recorded By Document 07/02/24 11:54 BM [id number] 07/02/24 11:55 BM Document 07/09/24 12:18 KW [id number] 07/09/24 12:18 KW 10/07/24 10/14/24 11:54 12:18 Wound Care Center Nurse 3 #2 R MED LE -Ulcer Cleansing Rinsed/ Irrigated with Saline -Foul Odor after Cleansing No -Primary Dressing Applied Aquacel AG 4x4 Aquacel AG 4x4, Mepilex Border -Other Dressing per kw gunstock spray unit feeder -Primary Dressing Covered/Secured with Dry Gauze, Secured with Tape -Other Covering abd -Aquacel AG 4x4 1 1 -Mepilex Border 1 #1 RT POST LE -Ulcer Cleansing Rinsed/ Irrigated with Saline -Foul Odor after Cleansing No -Primary Dressing Applied Aquacel AG 4x4 Mepilex Border -Other Dressing abd aquacel -Primary Dressing Covered/Secured with Secured with Tape -Other Covering drsg per kw gunstock spray unit feeder -Aquacel AG 4x4 1 -Mepilex Border 1 Right -Tubular Bandage Double Layer -Size of Tubigrip Used Size E -Size E ($) 2 -Other sent an extra Treatment Response Procedure Tolerated Well Pain Scale: 0-10 Numeric Is Patient Pain Free? Yes Yes WC - Visit Discharge Discharge Condition Stable Ambulatory Status Ambulatory Transportation Private Auto Additional Wound Wound debrided: #2 right medial leg wound Laterality: Right Wound Grade/Stage: Stage III Type of Debridement: Excisional debridement Anesthesia Used: 5% Lidocaine Gel Depth: Down to and including healthy tissue and in the subcutaneous layer Percentage of wound debrided: 100 Instrument Used: 7mm curette Tissue Removed: Non viable tissue and slough Severity: Fat Layer Exposed Amount of bleeding with debridement: Mild Bleeding Controlled with: Compression and gauze Patient tolerated procedure: Patient tolerated procedure well Assessment/Plan Assessment/Plan (1) 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 layer exposed: CODE(S): L97.212 - 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 layer exposed (2) Traumatic open wound of right lower leg: CODE(S): S81.801A - Unspecified open wound, right lower leg, initial encounter QUALIFIERS: Encounter type: subsequent encounter Qualified Code(s): S81.801D - Unspecified open wound, right lower leg, subsequent encounter (3) Non-pressure chronic ulcer of calf with fat layer exposed: CODE(S): L97.202 - Non-pressure chronic ulcer of unspecified calf with fat layer exposed QUALIFIERS: Laterality: right Qualified Code(s): L97.212 - Non- pressure 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 To her right posterolateral leg ulcer, she would benefit from an advanced wound healing product such as Epifix. It would help expedite her ulcer healing. Wound care - To both the right posterior lateral leg ulcer and the right medial skin tear/wound place Aquacel-Ag daily covered with ABD/gauze/silicone border dressing after gently washing with soap and water. Compression - Double tubigrip (she has good pedal pulses bilaterally). This will assist with preventing leg swelling while she is at work on her feet all day. When she gets home, encouraged to keep legs elevated. Follow up one week. Call or come in sooner if develop any concerns.
--- NOTE | 2024-07-10 08:54 | WC ---
PHOTO 07/09/24 RIGHT MEDIAL LEG
--- NOTE | 2024-07-10 08:55 | WC ---
PHOTO 07/09/24 RIGHT POST LEG
[2024-07-16 11:39] VITALS: BP 137/89; PULSE 97; RESP 16; TEMP 36.1; BMI 38.2
--- NOTE | 2024-07-16 12:57 | PCM.WC.PN ---
History of Present Illness Date of Service: 07/16/24 Chief Complaint: Traumatic wound of the right posterolateral leg and skin tear to right medial leg History of Wound: This is a 59-year-old female who presented with a traumatic wound on the right posterior calf. On May 11, 2024, during an appointment with her family physician, the patient injured her right posterior calf while dismounting from the examination table. Her right calf impacted the examination table, creating an open wound, for which the patient has sought evaluation and management. The patient had been using antibiotic ointment topically. She denies chronic swelling in her lower extremities. She denies a history of thrombophlebitis. She is ambulatory, and is able to ambulate liberally without limitations. 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 She claims to lead an active lifestyle. She was being seen by another provider but his scheduled day did not work with her work schedule so she was changed to my schedule. Today, 06/25/24 she presents with a new skin tear on her right medial leg. She states that it occurred one week ago when she was changing her dressing on her posterolateral leg ulcer when her foot slipped off the chair she was using to prop her right leg on and she obtained a traumatic skin tear to her right medial leg. She has been dressing it with Aquacel-Ag daily when she changes the posterolateral ulcer. Progress of Wound: Right posterolateral leg ulcer is slightly smaller with nice beefy pink ulcer bed. She states that there is minimal drainage. Her right medial leg wound is stabilizing, less non viable tissue present, undermining has resolved and the depth has decreased significantly. She has been approved for Epifix to her right lateral leg ulcer. Objective Data Objective Data Vital Signs: Vital Signs Temp Pulse Resp BP O2 Del Method 97 F L 97 16 137/89 H Room Air 07/16/24 11:39 07/16/24 11:39 07/16/24 11:39 07/16/24 11:39 07/16/24 11:39 Oxygen Delivery Method Room Air Weight: 216 lb Body Mass Index (BMI) 38.2 Charges/Coding Procedures Integumentary 150xxx-152xx: 57093 Skin sub graft trnk/arm/leg (right lateral leg ulcer) Multi Select Codes Integumentary Integumentary CPT Codes: 66479 Crystal subq tissue 20 sq cm/< (right medial leg wound) Debridement Note Debridement Note Wound debrided: #1 posterolateral ulcer Laterality: Right Wound Grade/Stage: StageIII Type of Debridement: Excisional debridement Anesthesia Used: 5% Lidocaine Gel Depth: Down to and including healthy tissue and in the subcutaneous layer Percentage of wound debrided: 100 Instrument Used: 3mm curette Tissue Removed: Non viable tissue and slough Severity: Fat Layer Exposed Amount of bleeding with debridement: Mild Bleeding Controlled with: Pressure and Compression and gauze Patient tolerated procedure: Patient tolerated procedure well Post-Debridement Measurements and Additional Note: Post-Debridement Measurements/Treatment - Nurse 1 - General Ulcer Assessment Start: 07/02/24 11:21 Freq: Status: Active Protocol: ABDIEL Activity Type Activity Date Activity User E-sign Co-sign Detail Recorded Client Recorded Date Recorded By Document 07/02/24 11:23 DL [id number] 07/02/24 11:29 DL Document 07/09/24 11:34 KW [id number] 07/09/24 11:39 KW Document 07/16/24 11:39 BMF [id number] 07/16/24 11:50 BMF 07/02/24 07/09/24 07/16/24 11:23 11:34 11:39 - Today's Visit Information Type of service Follow-up Visit Follow-up Visit Follow-up Visit (Physician/DYE OPERATOR (Physician/DYE OPERATOR (Physician/DYE OPERATOR ) ) ) Arrival Mode Ambulatory Ambulatory Ambulatory Transfer Assistance None Patient Identification Verified (Name & Yes Yes Yes ) Patient Requires Transmission-Based No No Precautions Height and Weight Body Mass Index (BMI) 38.2 38.2 38.2 BMI Classification Obese Obese Obese Vital Signs Temperature (97.8 F-99.1 F) 98 F 97.0 F L 97 F L Temperature Source Temporal Temporal Temporal Pulse Rate (60-100) 90 93 97 Pulse Location Monitor Monitor Monitor Respiratory Rate (12-18) 18 18 16 Respiratory rate source Observation Observation Observation Oxygen Delivery Method Room Air Room Air Blood Pressure (90/60-120/80) 141/79 H 149/73 H 137/89 H Blood Pressure Mean (mm Hg) 99 98 105 Source Monitor Monitor Monitor Position Semi-Fowlers Sitting Blood Pressure Location Left Arm Right Arm History Since Last Visit- (Skip if this is Patient's initial visit) Have you changed medications since your No No No last visit? Any new allergies or adverse reactions No No No Had a fall/change in ADL's that may No No No increase risk of falls Signs or symptoms of abuse and/or No No No neglect since last visit Have you been in the hospital since your No No No last visit? Has dressing in place as prescribed Yes Yes Yes Has compression in place as prescribed Yes Yes Yes Has offloadiing in place as prescribed N/A N/A N/A Experienced any changes in pain level or No No No management Left Footwear Regular Shoe Regular Shoe Right Footwear Regular Shoe Regular Shoe Pain Scale: 0-10 Numeric Is Patient Pain Free? Yes Yes Yes WC - Nurse 1 - General Ulcer Measurement Start: 07/02/24 11:21 Freq: Status: Active Protocol: Activity Type Activity Date Activity User E-sign Co-sign Detail Recorded Client Recorded Date Recorded By Document 07/02/24 11:23 DL [id number] 07/02/24 11:29 DL Document 07/09/24 11:34 KW [id number] 07/09/24 11:39 KW Document 07/16/24 11:39 BMF [id number] 07/16/24 11:50 BMF 07/02/24 07/09/24 07/16/24 11:23 11:34 11:39 Wound Center Nurse 1 #2 R MED LE -Combined with other wound No No -Current Size (cm) - Length 7.5 7.5 7.1 -Current Size (cm) - Width 2.4 2.8 2.4 -Current Size (cm) - Depth 0.1 0.1 0.1 -Total Square Cm 18.00 21.00 17.04 -Date of Last Picture (Recall this 07/16/24 field) -Photo Taken Yes -Epithelialization Small 1-33% -Tunneling No No -Undermining/Tunneling No No -Circular Undermining No No -Exudate Amt Medium Medium Medium -Exudate Type Serosanguineous Serosanguineous Serosanguineous -Wound Margin Distinct, Distinct, Distinct, Outline Outline Outline Attached Attached Attached -Granulation Amt Medium (34-66%) Large (67-100%) Small (1-33%) -Granulation Quality Red Red Red -Slough/Fibrin Yes Yes -Necrosis Amt Medium (34-66%) Large (67-100%) -Necrotic Tissue Type Adherent Slough Adherent Slough -Texture (Tanisha-wound Skin Appearance) Assessed, Assessed Assessed, Scarring Scarring -Moisture (Tanisha-wound Skin Appearance) Assessed, Assessed Assessed,Dry/ Maceration,Dry/ Scaly Scaly -Color (Tanisha-wound Skin Appearance) Assessed Assessed, Assessed Erythema -Temperature (Tanisha-wound Skin No Abnormality No Abnormality No Abnormality Appearance) (Pt Warm) (Pt Warm) (Pt Warm) -Tenderness on Palpation (Tanisha-wound No No No Skin Appearance) -Ulcer Cleansing Rinsed/ Soap and Water Soap and Water Irrigated with Saline -Foul Odor after Cleansing No No -Anesthetic Used 5% Lidocaine 5% Lidocaine 5% Lidocaine Gel Gel Gel #1 RT POST LE -Combined with other wound No No -Current Size (cm) - Length 1.8 1.6 1.5 -Current Size (cm) - Width 1 1 0.6 -Current Size (cm) - Depth 0.2 0.2 0.1 -Total Square Cm 1.8 1.6 0.90 -Date of Last Picture (Recall this 07/16/24 field) -Photo Taken Yes -Epithelialization Small 1-33% Small 1-33% -Tunneling No No -Undermining/Tunneling No No -Circular Undermining No No -Exudate Amt Medium Medium Medium -Exudate Type Serosanguineous Serosanguineous Serosanguineous -Wound Margin Distinct, Distinct, Distinct, Outline Outline Outline Attached Attached Attached -Granulation Amt Medium (34-66%) Large (67-100%) Large (67-100%) -Granulation Quality Red Red Red -Slough/Fibrin Yes Yes -Necrosis Amt Medium (34-66%) Small (1-33%) -Necrotic Tissue Type Adherent Slough Adherent Slough -Texture (Tanisha-wound Skin Appearance) Assessed, Assessed Assessed, Scarring Scarring -Moisture (Tanisha-wound Skin Appearance) Assessed,Dry/ Assessed No Abnormality, Scaly Dry/Scaly -Color (Tanisha-wound Skin Appearance) Assessed Assessed, Assessed Erythema -Temperature (Tanisha-wound Skin No Abnormality No Abnormality No Abnormality Appearance) (Pt Warm) (Pt Warm) (Pt Warm) -Tenderness on Palpation (Tansiha-wound No No No Skin Appearance) -Ulcer Cleansing Rinsed/ Soap and Water Soap and Water Irrigated with Saline -Foul Odor after Cleansing No No No -Anesthetic Used 5% Lidocaine 5% Lidocaine 5% Lidocaine Gel Gel Gel Lower Limb Edema Present Yes Right Calf (cm) 38.5 39 40.2 Right Ankle (cm) 23 23 22.6 WC - Nurse 2 - General Ulcer CM Notes Start: 07/02/24 11:21 Freq: Status: Active Protocol: Activity Type Activity Date Activity User E-sign Co-sign Detail Recorded Client Recorded Date Recorded By Document 07/02/24 11:36 [id number] 07/02/24 11:43 Document 07/09/24 12:03 [facility] [id number] 07/09/24 12:13 [facility] Document 07/16/24 12:08 [id number] 07/16/24 12:15 07/02/24 07/09/24 07/16/24 11:36 12:03 12:08 Wound Center Nurse 2 #2 R MED LE -Time 11:38 12:06 12:11 -Correct Patient Yes Yes Yes -Correct Side, Site, Position Yes Yes Yes -Correct Procedure Yes Yes Yes -Procedure Performed Yes Yes Yes -Type of Procedure Debridement Debridement Debridement -Clinical Debridement Subcutaneous Subcutaneous Subcutaneous -Tissue Removed Subcutaneous Subcutaneous Subcutaneous -Post Debridement (cm) - Length 7.7 7.5 7.0 -Post Debridement (cm) - Width 3.0 3 2.8 -Post Debridement (cm) - Depth 0.3 0.4 0.2 -Total Square (Post) (cm) 23.10 22.5 19.60 -Area of Debridement (cm) - Length 7.7 7.5 7 -Area of Debridement (cm) - Width 3.0 3 2.8 -Total Square (Area) (cm) 23.10 22.5 19.6 -Tunneling No No No -Undermining/Tunneling Yes No No -Undermining/Tunneling Starts (O'clock 6 ) -Undermining/Tunneling Ends (O'clock) 7 -Maximum Distance (cm) 0.3 -Circular Undermining No No No -Wound/Ulcer Outcome Not Healed Not Healed Not Healed -Ulcer Cleansing Rinsed/ Rinsed/ Rinsed/ Irrigated with Irrigated with Irrigated with Saline Saline Saline -Foul Odor after Cleansing No No No -Bioengineered Tissue No No No -Bleeding Controlled with Pressure Pressure Pressure -Treatment Response Procedure Procedure Procedure Tolerated Well Tolerated Well Tolerated Well -Offloading No No -Debridement - Subq, 1st 20sq cm No Yes Yes -Debridement, SubQ, ea addt'l 20sq cm 1 or part thereof #1 RT POST LE -Time 11:38 12:04 12:08 -Correct Patient Yes Yes Yes -Correct Side, Site, Position Yes Yes Yes -Correct Procedure Yes Yes Yes -Procedure Performed Yes Yes Yes -Type of Procedure Debridement Debridement Debridement -Clinical Debridement Subcutaneous Subcutaneous Subcutaneous -Tissue Removed Subcutaneous Subcutaneous Subcutaneous -Post Debridement (cm) - Length 1.8 1.8 1.5 -Post Debridement (cm) - Width 1.6 1.3 0.9 -Post Debridement (cm) - Depth 0.2 0.2 0.2 -Total Square (Post) (cm) 2.88 2.34 1.35 -Area of Debridement (cm) - Length 1.8 1.8 1.5 -Area of Debridement (cm) - Width 1.6 1.3 0.9 -Total Square (Area) (cm) 2.88 2.34 1.35 -Tunneling No No No -Undermining/Tunneling No No No -Circular Undermining No No No -Wound/Ulcer Outcome Not Healed Not Healed Not Healed -Ulcer Cleansing Rinsed/ Rinsed/ Rinsed/ Irrigated with Irrigated with Irrigated with Saline Saline Saline -Foul Odor after Cleansing No No No -Bioengineered Tissue No No Yes -Type of Bioengineered Tissue Epifix 18mm Disc -Expiration Date 01/24/29 -Product Lot Number [id number] -Percent Used 100 -Lot number of Saline Used [id number] -Bleeding Controlled with Pressure Pressure Pressure -Treatment Response Procedure Procedure Procedure Tolerated Well Tolerated Well Tolerated Well -Offloading No No -Debridement - Subq, 1st 20sq cm Yes No No -Debridement, SubQ, ea addt'l 20sq cm 1 or part thereof -Apply Skin Sub - 1st 25 sq cm - Legs 1 -Epifix 18mm Disc 3 Pain Scale: 0-10 Numeric Is Patient Pain Free? Yes Yes Yes WC - Nurse 3 - General Ulcer D/C NN Start: 07/02/24 11:21 Freq: Status: Active Protocol: Activity Type Activity Date Activity User E-sign Co-sign Detail Recorded Client Recorded Date Recorded By Document 07/02/24 11:54 [facility] [id number] 07/02/24 11:55 [facility] Document 07/09/24 12:18 KW [id number] 07/09/24 12:18 KW Document 07/16/24 12:21 KW [id number] 07/16/24 12:23 KW 07/02/24 07/09/24 07/16/24 11:54 12:18 12:21 Wound Care Center Nurse 3 #2 R MED LE -Ulcer Cleansing Rinsed/ Irrigated with Saline -Foul Odor after Cleansing No -Primary Dressing Applied Aquacel AG 4x4 Aquacel AG 4x4, Mepilex Border, Mepilex Border Silvercel -Other 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 -Primary Dressing Covered/Secured with Dry Gauze, Secured with Tape -Other Covering abd -Aquacel AG 4x4 1 1 -Mepilex Border 1 1 -Silvercel 1 #1 RT POST LE -Ulcer Cleansing Rinsed/ Irrigated with Saline -Foul Odor after Cleansing No -Primary Dressing Applied Aquacel AG 4x4 Mepilex Border Mepilex Border -Other Dressing abd aquacel -Primary Dressing Covered/Secured with Secured with Tape -Other Covering drsg per kw motion picture equipment machinist -Aquacel AG 4x4 1 -Mepilex Border 1 1 Right -Tubular Bandage Double Layer Double Layer -Size of Tubigrip Used Size E Size E -Size E ($) 2 2 -Other sent an extra Treatment Response Procedure Tolerated Well Pain Scale: 0-10 Numeric Is Patient Pain Free? Yes Yes Yes WC - Visit Discharge Discharge Condition Stable Ambulatory Status Ambulatory Transportation Private Auto Additional Wound Wound debrided: #2 right medial leg wound Laterality: Right Wound Grade/Stage: Stage III Type of Debridement: Excisional debridement Anesthesia Used: 5% Lidocaine Gel Depth: Down to and including healthy tissue and in the subcutaneous layer Percentage of wound debrided: 100 Instrument Used: 7mm curette Tissue Removed: Non viable tissue and slough Severity: Fat Layer Exposed Amount of bleeding with debridement: Mild Bleeding Controlled with: Compression and gauze Patient tolerated procedure: Patient tolerated procedure well Assessment/Plan Assessment/Plan (1) 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 layer exposed: CODE(S): L97.212 - 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 layer exposed (2) Traumatic open wound of right lower leg: CODE(S): S81.801A - Unspecified open wound, right lower leg, initial encounter QUALIFIERS: Encounter type: subsequent encounter Qualified Code(s): S81.801D - Unspecified open wound, right lower leg, subsequent encounter (3) Non-pressure chronic ulcer of calf with fat layer exposed: CODE(S): L97.202 - Non-pressure chronic ulcer of unspecified calf with fat layer exposed QUALIFIERS: Laterality: right Qualified Code(s): L97.212 - 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 She has been approved for Epifix to her right posterolateral leg ulcer. Today I placed Epifix #1 (18 mm disc) to the ulcer. 100% of the product was used. Covered with wound veil and steri strips. Topped with hydrogel and covered with foam boarder dressing. She was instructed not to get this area wet. She may change the outer dressing if necessary above the wound veil and steri strips. Wound care - To the right medial leg wound place Aquacel-Ag daily covered with ABD/gauze/silicone border dressing after gently washing with soap and water. Compression - Double tubigrip (she has good pedal pulses bilaterally). This will assist with preventing leg swelling while she is at work on her feet all day. When she gets home, encouraged to keep legs elevated. Follow up one week, for a courtesy visit with another provider since she will be out of town on my scheduled days. Call or come in sooner if develop any concerns.
--- NOTE | 2024-07-16 13:28 | WC ---
PHOTO 07/16/24 FROY MCALLISTER
--- NOTE | 2024-07-16 13:29 | WC ---
PHOTO 07/16/24 RLE POST
--- NOTE | 2024-07-20 12:57 | ART_ITS ---
Reason For Study: RLE Wound Procedure A bilateral lower extremity continuous wave Doppler with analog waveform analysis,segmental pressures,and ankle brachial indexes without exercise. Left Segmental Pressures Left brachial= 144mmHg. Left posterior tibial artery = 168mmHg. Left dorsalis pedis artery = 196mmHg. Left digit = 134 mmHg. The left posterior tibial artery waveforms are triphasic. The left dorsalis pedis waveforms are triphasic. Right Segmental Pressures Right brachial= 160mmHg. Right posterior tibial artery = 206mmHg. Right dorsalis pedis artery = 195mmHg. Right digit = 113 mmHg. The right posterior tibial artery waveforms are triphasic. The right dorsalis pedis waveforms are triphasic. Indices The right ankle brachial index by the posterior tibial artery is 1.29. The right ankle brachial index by the dorsalis pedis is 1.22. The right digital-brachial index is 0.71. The left ankle brachial index by the posterior tibial artery is 1.05. The left ankle brachial index by the dorsalis pedis is 1.23. The left digital-brachial index is 0.84. VL/Lower Ext Art Exam w/o Exercis Interpretation Summary Triphasic Doppler waveforms are noted at ankle level bilaterally. Pulse-volume recordings appear satisfactory at all levels bilaterally. Resting ankle-brachial indices are norm al bilaterally. Digital-brachial indices are normal bilaterally. There is no evidence of significant arterial occlusive disease in the lower ext remities bilaterally. Ordering Physician: Lavern Dowell Referring Physician: Dilip Rosado Performed By: Dwayne Garcia RVT
--- NOTE | 2024-07-20 12:57 | VDLE_ITS ---
Reason For Study: RLE Wound RIGHT LEFT CFV is compressible, spontaneous, phasic, CFV is compressible, spontaneous, phasic, competent and demonstrates normal competent, and demonstrates normal augmentation. augmentation. FV is compressible, spontaneous, phasic, FV is compressible, spontaneous, phasic, competent and demonstrates normal competent and demonstrates normal augmentation. augmentation. POP V is compressible, spontaneous, phasic, POP V is compressible, spontaneous, phasic, competent and demonstrates normal competent and demonstrates normal augmentation. augmentation. T/P Trunk is compressible. T/P Trunk is compressible. PTV is compressible. PTV is compressible. RT PerV is compressible. LT PerV is compressible. SFJ is INCOMPETENT and measures 0.43 cm. SFJ is competent and measures 0.59 cm. GSV proximal thigh measures 0.41 x 0.47 cm. GSV proximal thigh measures 0.31 x 0.30 cm. GSV at knee measures 0.32 x 0.33 cm. GSV at knee measures 0.27 x 0.25 cm. GSV is competent throughout. GSV is competent throughout. SSV mid calf is competent and measures 0.27 x SSV mid calf is competent and measures 0.20 x 0.28 cm. 0.22 cm. Procedure Exam performed in department. This is a venous duplex using B-mode, color flow and spectral Doppler. The exam was diagnostic. VL/Venous Duplex US - Gallo Extrem Interpretation Summary Deep veins of the lower extremities are bilaterally patent and compressible seg mentally. There is no evidence of deep vein thrombosis on either side. Valvular competence appears in tact within the proximal deep venous systems bilaterally. The great saphenous veins appear bila terally patent and compressible segmentally. The right sapheno-femoral junction is incompetent . T he left sapheno- femoral junction is competent . Valvular competence appears to be intact segmen tally within the great saphenous veins bilaterally. Small saphenous veins are patent and compete nt bilaterally. Ordering Physician: Lavern Dowell Referring Physician: Yvonne Rosado Performed By: Dwayne Garcia, RVT
== END 2024-07-26 23:59 | disposition home or self-care (01) ==
LOC: WC 13:00
PROVIDERS: PCP Internal Medicine; Referring Provider Physician Assistant; Visit Provider Surgery
DX: L97.212 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 layer exposed (principal); S81.801D Unspecified open wound, right lower leg, subsequent encounter
CPT/HCPCS: 11042; 11045; 15271; 93923; 93970; Q4186

== ENCOUNTER 2024-08-13 11:15 | Outpatient (RCR) | payer OTHER, SELFPAY ==
[2024-07-27 00:15] VITALS: BP 134/93; PULSE 102; RESP 18; TEMP 36.8; BMI 38.2
[2024-07-30 11:14] VITALS: BP 156/72; PULSE 101; RESP 18; TEMP 35.9; BMI 38.2
--- NOTE | 2024-07-30 12:24 | PCM.WC.PN ---
History of Present Illness Date of Service: 07/30/24 Chief Complaint: Traumatic wound of the right posterolateral leg and skin tear to right medial leg History of Wound: This is a 59-year-old female who presented with a traumatic wound on the right posterior calf. On May 11, 2024, during an appointment with her family physician, the patient injured her right posterior calf while dismounting from the examination table. Her right calf impacted the examination table, creating an open wound, for which the patient has sought evaluation and management. The patient had been using antibiotic ointment topically. She denies chronic swelling in her lower extremities. She denies a history of thrombophlebitis. She is ambulatory, and is able to ambulate liberally without limitations. 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 She claims to lead an active lifestyle. She was being seen by another provider but his scheduled day did not work with her work schedule so she was changed to my schedule. Today, 06/25/24 she presents with a new skin tear on her right medial leg. She states that it occurred one week ago when she was changing her dressing on her posterolateral leg ulcer when her foot slipped off the chair she was using to prop her right leg on and she obtained a traumatic skin tear to her right medial leg. She has been dressing it with Aquacel-Ag daily when she changes the posterolateral ulcer. Progress of Wound: Right posterolateral leg ulcer is much smaller after her first application of Epifix. It had a very dry scab in place. Her right medial leg wound is stable in size, the depth has decreased. Her edema is +1-+2. Objective Data Objective Data Vital Signs: Vital Signs Temp Pulse Resp BP O2 Del Method 96.6 F L 101 H 18 156/72 H Room Air 07/30/24 11:14 07/30/24 11:14 07/30/24 11:14 07/30/24 11:14 07/30/24 11:14 Oxygen Delivery Method Room Air Weight: 216 lb Body Mass Index (BMI) 38.2 Charges/Coding Procedures Integumentary 150xxx-152xx: 66191 Skin sub graft trnk/arm/leg (right lateral leg ulcer) Multi Select Codes Integumentary Integumentary CPT Codes: 60663 Crystal subq tissue 20 sq cm/< (right medial leg) Debridement Note Debridement Note Wound debrided: #1 posterolateral ulcer Laterality: Right Wound Grade/Stage: StageIII Type of Debridement: Excisional debridement Anesthesia Used: 5% Lidocaine Gel Depth: Down to and including healthy tissue and in the subcutaneous layer Percentage of wound debrided: 100 Instrument Used: 3mm curette Tissue Removed: Non viable tissue and slough Severity: Fat Layer Exposed Amount of bleeding with debridement: Mild Bleeding Controlled with: Pressure and Compression and gauze Patient tolerated procedure: Patient tolerated procedure well Post-Debridement Measurements and Additional Note: Post-Debridement Measurements/Treatment WC - Nurse 1 - General Ulcer Assessment Start: 07/30/24 11:13 Freq: Status: Active Protocol: ABDIEL Activity Type Activity Date Activity User E-sign Co-sign Detail Recorded Client Recorded Date Recorded By Document 07/30/24 11:14 RUBEN [id number] 07/30/24 11:20 RUBEN 07/30/24 11:14 WC - Today's Visit Information Type of service Follow-up Visit (Physician/ARMATURE TESTER ) Arrival Mode Ambulatory Patient Identification Verified (Name & Yes ) Height and Weight Body Mass Index (BMI) 38.2 BMI Classification Obese Vital Signs Temperature (97.8 F-99.1 F) 96.6 F L Temperature Source Temporal Pulse Rate (60-100) 101 H Pulse Location Monitor Respiratory Rate (12-18) 18 Respiratory rate source Observation Oxygen Delivery Method Room Air Blood Pressure (90/60-120/80) 156/72 H Blood Pressure Mean (mm Hg) 100 Source Monitor Position Sitting Blood Pressure Location Left Arm History Since Last Visit- (Skip if this is Patient's initial visit) Have you changed medications since your No last visit? Any new allergies or adverse reactions No Had a fall/change in ADL's that may No increase risk of falls Signs or symptoms of abuse and/or No neglect since last visit Have you been in the hospital since your No last visit? Has dressing in place as prescribed Yes Has compression in place as prescribed Yes Has offloadiing in place as prescribed N/A Experienced any changes in pain level or No management Left Footwear Regular Shoe Right Footwear Regular Shoe Pain Scale: 0-10 Numeric Is Patient Pain Free? No WC - Nurse 1 - General Ulcer Measurement Start: 07/30/24 11:13 Freq: Status: Active Protocol: Activity Type Activity Date Activity User E-sign Co-sign Detail Recorded Client Recorded Date Recorded By Document 07/30/24 11:14 KW [id number] 07/30/24 11:20 KW 07/30/24 11:14 Wound Center Nurse 1 #2 R MED LE -Combined with other wound No -Current Size (cm) - Length 6 -Current Size (cm) - Width 2.2 -Current Size (cm) - Depth 0.2 -Total Square Cm 13.2 -Date of Last Picture (Recall this 07/30/24 field) -Photo Taken Yes -Epithelialization None Present -Tunneling No -Undermining/Tunneling No -Circular Undermining No -Exudate Amt Medium -Exudate Type Serosanguineous -Wound Margin Distinct, Outline Attached -Granulation Amt Medium (34-66%) -Granulation Quality Red -Slough/Fibrin Yes -Necrosis Amt Medium (34-66%) -Necrotic Tissue Type Adherent Slough -Texture (Tanisha-wound Skin Appearance) Assessed, Scarring -Moisture (Tanisha-wound Skin Appearance) No Abnormality -Color (Tanisha-wound Skin Appearance) Assessed -Temperature (Tanisha-wound Skin No Abnormality Appearance) (Pt Warm) -Tenderness on Palpation (Tanisha-wound No Skin Appearance) -Ulcer Cleansing Rinsed/ Irrigated with Saline -Foul Odor after Cleansing No -Anesthetic Used 5% Lidocaine Gel #1 RT POST LE -Current Size (cm) - Length 0.1 -Current Size (cm) - Width 0.1 -Current Size (cm) - Depth 0.1 -Total Square Cm 0.01 -Date of Last Picture (Recall this 07/30/24 field) -Epithelialization Large 67-100% -Exudate Amt None Present -Granulation Amt None Present (0 %) -Texture (Tanisha-wound Skin Appearance) Assessed -Moisture (Tanisha-wound Skin Appearance) Assessed -Color (Tanisha-wound Skin Appearance) Assessed -Temperature (Tanisha-wound Skin No Abnormality Appearance) (Pt Warm) -Tenderness on Palpation (Tanisha-wound No Skin Appearance) -Wound Comment(s) scab Lower Limb Edema Present Yes Right Calf (cm) 38.5 Right Ankle (cm) 21.5 WC - Nurse 2 - General Ulcer CM Notes Start: 07/30/24 11:13 Freq: Status: Active Protocol: Activity Type Activity Date Activity User E-sign Co-sign Detail Recorded Client Recorded Date Recorded By Document 07/30/24 11:41 DINAH [id number] 07/30/24 11:53 DINAH 07/30/24 11:41 Wound Center Nurse 2 #2 R MED LE -Time 11:42 -Correct Patient Yes -Correct Side, Site, Position Yes -Correct Procedure Yes -Procedure Performed Yes -Type of Procedure Debridement -Clinical Debridement Subcutaneous -Tissue Removed Subcutaneous -Post Debridement (cm) - Length 6.2 -Post Debridement (cm) - Width 2.5 -Post Debridement (cm) - Depth 0.2 -Total Square (Post) (cm) 15.50 -Area of Debridement (cm) - Length 6.2 -Area of Debridement (cm) - Width 2.5 -Total Square (Area) (cm) 15.50 -Tunneling No -Undermining/Tunneling No -Circular Undermining No -Wound/Ulcer Outcome Not Healed -Ulcer Cleansing Rinsed/ Irrigated with Saline -Foul Odor after Cleansing No -Bioengineered Tissue No -Bleeding Controlled with Pressure -Treatment Response Procedure Tolerated Well -Offloading No -Debridement - Subq, 1st 20sq cm Yes #1 RT POST LE -Time 11:45 -Correct Patient Yes -Correct Side, Site, Position Yes -Correct Procedure Yes -Procedure Performed Yes -Type of Procedure Debridement -Clinical Debridement Subcutaneous -Tissue Removed Subcutaneous -Post Debridement (cm) - Length 1.0 -Post Debridement (cm) - Width 0.6 -Post Debridement (cm) - Depth 0.1 -Total Square (Post) (cm) 0.60 -Area of Debridement (cm) - Length 1.0 -Area of Debridement (cm) - Width 0.6 -Total Square (Area) (cm) 0.60 -Tunneling No -Undermining/Tunneling No -Circular Undermining No -Wound/Ulcer Outcome Not Healed -Ulcer Cleansing Rinsed/ Irrigated with Saline -Foul Odor after Cleansing No -Bioengineered Tissue Yes -Type of Bioengineered Tissue Epifix 18mm Disc -Expiration Date 02/24/29 -Product Lot Number [id number] -Percent Used 100 -Lot number of Saline Used [id number] -Bleeding Controlled with Pressure -Treatment Response Procedure Tolerated Well -Offloading No -Debridement - Subq, 1st 20sq cm No -Apply Skin Sub - 1st 25 sq cm - Legs 1 -Epifix 18mm Disc 3 Pain Scale: 0-10 Numeric Is Patient Pain Free? Yes WC - Nurse 3 - General Ulcer D/C NN Start: 07/30/24 11:13 Freq: Status: Active Protocol: Activity Type Activity Date Activity User E-sign Co-sign Detail Recorded Client Recorded Date Recorded By Document 07/30/24 12:00 DL [id number] 07/30/24 12:03 DL 07/30/24 12:00 Wound Care Center Nurse 3 #2 R MED LE -Ulcer Cleansing Rinsed/ Irrigated with Saline -Foul Odor after Cleansing No -Primary Dressing Applied Optilok 6.5x10, Silvercel -Primary Dressing Covered/Secured with Dry Gauze & Roll Gauze, Secured with Tape -Optilok 6.5x10 1 -Silvercel 1 #1 RT POST LE -Foul Odor after Cleansing No -Primary Dressing Applied Mepilex Border -Other Dressing Epimesh -Mepilex Border 1 Right -Multi-Layered Wrap Application Multi-Layer Comp - Right ($ ) Treatment Response Procedure Tolerated Well Pain Scale: 0-10 Numeric Is Patient Pain Free? Yes WC - Visit Discharge Discharge Condition Stable Ambulatory Status Ambulatory Transportation Private Auto Notes: Dressing applied today per Sabina Sanders Additional Wound Wound debrided: #2 right medial leg wound Laterality: Right Wound Grade/Stage: Stage III Type of Debridement: Excisional debridement Anesthesia Used: 5% Lidocaine Gel Depth: Down to and including healthy tissue and in the subcutaneous layer Percentage of wound debrided: 100 Instrument Used: - (Misonix aquasonic debridement) Tissue Removed: Non viable tissue and slough Severity: Fat Layer Exposed Amount of bleeding with debridement: Mild Bleeding Controlled with: Compression and gauze Patient tolerated procedure: Patient tolerated procedure well Assessment/Plan Assessment/Plan (1) 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 layer exposed: CODE(S): L97.212 - 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 layer exposed (2) Traumatic open wound of right lower leg: CODE(S): S81.801A - Unspecified open wound, right lower leg, initial encounter QUALIFIERS: Encounter type: subsequent encounter Qualified Code(s): S81.801D - Unspecified open wound, right lower leg, subsequent encounter (3) Non-pressure chronic ulcer of calf with fat layer exposed: CODE(S): L97.202 - Non-pressure chronic ulcer of unspecified calf with fat layer exposed QUALIFIERS: Laterality: right Qualified Code(s): L97.212 - 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 Used Misonix aquasonic to debride the right medial leg which helped remove some of fibrous tissue, good bleeding obtained. She has been approved for Epifix to her right posterolateral leg ulcer. Today I placed Epifix #2 (18 mm disc) to the ulcer. 100% of the product was used. Covered with wound veil and steri strips. Topped with hydrogel and covered with foam boarder dressing. She was instructed not to get this area wet. Wound care - To the right medial leg wound place Aquacel-Ag covered with ABD/gauze/silicone border dressing after gently washing with soap and water. Compression - 3M 2 layer wraps to right leg. When she gets home, encouraged to keep legs elevated. Follow up for a nurse's visit for a dressing change and 3M 2layer wrap change. Follow up one week with me.
--- NOTE | 2024-08-01 13:16 | WC ---
PHOTO 07/30/24 RIGHT POST LE
--- NOTE | 2024-08-01 13:17 | WC ---
PHOTO 07/30/24 RIGHT ARY BANDA
[2024-08-02 11:28] VITALS: BP 122/55; PULSE 88; RESP 18; TEMP 36.1; BMI 38.2
[2024-08-06 11:12] VITALS: BP 147/90; PULSE 85; RESP 18; BMI 38.2
--- NOTE | 2024-08-06 13:14 | PCM.WC.PN ---
History of Present Illness Date of Service: 08/06/24 Chief Complaint: Traumatic wound of the right posterolateral leg and skin tear to right medial leg History of Wound: This is a 59-year-old female who presented with a traumatic wound on the right posterior calf. On May 11, 2024, during an appointment with her family physician, the patient injured her right posterior calf while dismounting from the examination table. Her right calf impacted the examination table, creating an open wound, for which the patient has sought evaluation and management. The patient had been using antibiotic ointment topically. She denies chronic swelling in her lower extremities. She denies a history of thrombophlebitis. She is ambulatory, and is able to ambulate liberally without limitations. 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 She claims to lead an active lifestyle. She was being seen by another provider but his scheduled day did not work with her work schedule so she was changed to my schedule. Today, 06/25/24 she presents with a new skin tear on her right medial leg. She states that it occurred one week ago when she was changing her dressing on her posterolateral leg ulcer when her foot slipped off the chair she was using to prop her right leg on and she obtained a traumatic skin tear to her right medial leg. She has been dressing it with Aquacel-Ag daily when she changes the posterolateral ulcer. Progress of Wound: She tolerated the 3M 2 layer wraps well. Right posterolateral leg ulcer is healed today after her second application of Epifix. There is fragile epithelial tissue in place. Her right medial leg wound is slightly smaller in size, ulcer bed is dark beefy pink color. Objective Data Objective Data Vital Signs: Vital Signs Temp Pulse Resp BP O2 Del Method 97 F L 85 18 147/90 H Room Air 08/02/24 11:28 08/06/24 11:12 08/06/24 11:12 08/06/24 11:12 08/06/24 11:12 Oxygen Delivery Method Room Air Weight: 216 lb Body Mass Index (BMI) 38.2 Charges/Coding Procedures Integumentary 111xxx-113xx: [id number] Crystal subq tissue 20 sq cm/< Debridement Note Debridement Note Wound debrided: #2 Medial leg ulcer Laterality: Right Wound Grade/Stage: StageIII Type of Debridement: Excisional debridement Anesthesia Used: 5% Lidocaine Gel Depth: Down to and including healthy tissue and in the subcutaneous layer Percentage of wound debrided: 100 Instrument Used: 7mm curette Tissue Removed: Non viable tissue and slough Severity: Fat Layer Exposed Amount of bleeding with debridement: Mild Bleeding Controlled with: Pressure and Compression and gauze Patient tolerated procedure: Patient tolerated procedure well Post-Debridement Measurements and Additional Note: Post-Debridement Measurements/Treatment - Nurse 1 - General Ulcer Assessment Start: 07/30/24 11:13 Freq: Status: Active Protocol: ABDIEL Activity Type Activity Date Activity User E-sign Co-sign Detail Recorded Client Recorded Date Recorded By Document 07/30/24 11:14 KW [id number] 07/30/24 11:20 KW Document 08/02/24 11:28 DL [id number] 08/02/24 11:41 DL Document 08/06/24 11:12 KW [id number] 08/06/24 11:22 KW 07/30/24 08/02/24 08/06/24 11:14 11:28 11:12 - Today's Visit Information Type of service Follow-up Visit Nurse-only Follow-up Visit (Physician/[facility] Visit (Physician/[facility] ) ) Arrival Mode Ambulatory Ambulatory Ambulatory Transfer Assistance None Patient Identification Verified (Name & Yes Yes Yes ) Patient Requires Transmission-Based No Precautions Height and Weight Body Mass Index (BMI) 38.2 38.2 38.2 BMI Classification Obese Obese Obese Vital Signs Temperature (97.8 F-99.1 F) 96.6 F L 97 F L Temperature Source Temporal Temporal Pulse Rate (60-100) 101 H 88 85 Pulse Location Monitor Monitor Monitor Respiratory Rate (12-18) 18 18 18 Respiratory rate source Observation Observation Observation Oxygen Delivery Method Room Air Room Air Blood Pressure (90/60-120/80) 156/72 H 122/55 H 147/90 H Blood Pressure Mean (mm Hg) 100 77 109 Source Monitor Monitor Monitor Position Sitting Semi-Fowlers Blood Pressure Location Left Arm Left Arm History Since Last Visit- (Skip if this is Patient's initial visit) Have you changed medications since your No No No last visit? Any new allergies or adverse reactions No No No Had a fall/change in ADL's that may No No No increase risk of falls Signs or symptoms of abuse and/or No No No neglect since last visit Have you been in the hospital since your No No No last visit? Has dressing in place as prescribed Yes Yes Yes Has compression in place as prescribed Yes Yes Yes Has offloadiing in place as prescribed N/A N/A N/A Experienced any changes in pain level or No No No management Left Footwear Regular Shoe Regular Shoe Regular Shoe Right Footwear Regular Shoe Regular Shoe Regular Shoe Pain Scale: 0-10 Numeric Is Patient Pain Free? No Yes Yes WC - Nurse 1 - General Ulcer Measurement Start: 07/30/24 11:13 Freq: Status: Active Protocol: Activity Type Activity Date Activity User E-sign Co-sign Detail Recorded Client Recorded Date Recorded By Document 07/30/24 11:14 KW [id number] 07/30/24 11:20 KW Document 08/02/24 11:28 DL [id number] 08/02/24 11:41 DL Document 08/06/24 11:12 KW [id number] 08/06/24 11:22 KW 07/30/24 08/02/24 08/06/24 11:14 11:28 11:12 Wound Center Nurse 1 #1 RT POST LE -Current Size (cm) - Length 0.1 1 -Current Size (cm) - Width 0.1 0.6 -Current Size (cm) - Depth 0.1 0.1 -Total Square Cm 0.01 0.6 -Date of Last Picture (Recall this 07/30/24 field) -Epithelialization Large 67-100% -Exudate Amt None Present None Present -Wound Margin Distinct, Outline Attached -Granulation Amt None Present (0 %) -Necrosis Amt Large (67-100%) -Necrotic Tissue Type Eschar -Texture (Tanisha-wound Skin Appearance) Assessed Assessed -Moisture (Tanisha-wound Skin Appearance) Assessed Assessed -Color (Tanisha-wound Skin Appearance) Assessed Assessed -Temperature (Tanisha-wound Skin No Abnormality No Abnormality Appearance) (Pt Warm) (Pt Warm) -Tenderness on Palpation (Tanisha-wound No No Skin Appearance) -Ulcer Cleansing Soap and Water -Foul Odor after Cleansing No -Anesthetic Used 5% Lidocaine Gel -Wound Comment(s) scab Epifix intact, scabbed mepilex border intact. #2 R MED LE -Combined with other wound No -Current Size (cm) - Length 6 6 -Current Size (cm) - Width 2.2 2 -Current Size (cm) - Depth 0.2 0.2 -Total Square Cm 13.2 12 -Date of Last Picture (Recall this 07/30/24 field) -Photo Taken Yes -Epithelialization None Present -Tunneling No -Undermining/Tunneling No -Circular Undermining No -Exudate Amt Medium Large -Exudate Type Serosanguineous Serosanguineous -Wound Margin Distinct, Distinct, Distinct, Outline Outline Outline Attached Attached Attached -Granulation Amt Medium (34-66%) Large (67-100%) Large (67-100%) -Granulation Quality Red Red Red -Slough/Fibrin Yes -Necrosis Amt Medium (34-66%) Small (1-33%) Small (1-33%) -Necrotic Tissue Type Adherent Slough Adherent Slough Adherent Slough -Structure Exposed N/A -Texture (Tanisha-wound Skin Appearance) Assessed, Scarring Assessed Scarring -Moisture (Tanisha-wound Skin Appearance) No Abnormality No Abnormality Assessed -Color (Tanisha-wound Skin Appearance) Assessed No Abnormality Assessed -Temperature (Tanisha-wound Skin No Abnormality No Abnormality No Abnormality Appearance) (Pt Warm) (Pt Warm) (Pt Warm) -Tenderness on Palpation (Tanisha-wound No No No Skin Appearance) -Ulcer Cleansing Rinsed/ Soap and Water Rinsed/ Irrigated with Irrigated with Saline Saline -Foul Odor after Cleansing No No -Anesthetic Used 5% Lidocaine 5% Lidocaine Gel Gel Lower Limb Edema Present Yes Right Calf (cm) 38.5 40 Right Ankle (cm) 21.5 21.8 WC - Nurse 2 - General Ulcer CM Notes Start: 07/30/24 11:13 Freq: Status: Active Protocol: Activity Type Activity Date Activity User E-sign Co-sign Detail Recorded Client Recorded Date Recorded By Document 07/30/24 11:41 JF [id number] 07/30/24 11:53 JF Document 08/06/24 11:39 JF [id number] 08/06/24 11:41 JF 07/30/24 08/06/24 11:41 11:39 Wound Center Nurse 2 #1 RT POST LE -Time 11:45 11:39 -Correct Patient Yes No -Correct Side, Site, Position Yes No -Correct Procedure Yes No -Procedure Performed Yes No -Type of Procedure Debridement -Clinical Debridement Subcutaneous -Tissue Removed Subcutaneous -Post Debridement (cm) - Length 1.0 0 -Post Debridement (cm) - Width 0.6 0 -Post Debridement (cm) - Depth 0.1 0 -Total Square (Post) (cm) 0.60 0 -Area of Debridement (cm) - Length 1.0 0 -Area of Debridement (cm) - Width 0.6 0 -Total Square (Area) (cm) 0.60 0 -Tunneling No -Undermining/Tunneling No -Circular Undermining No -Wound/Ulcer Outcome Not Healed Healed- Epithelialized -Ulcer Cleansing Rinsed/ Irrigated with Saline -Foul Odor after Cleansing No -Bioengineered Tissue Yes -Type of Bioengineered Tissue Epifix 18mm Disc -Expiration Date 02/24/29 -Product Lot Number [id number] -Percent Used 100 -Lot number of Saline Used [id number] -Bleeding Controlled with Pressure -Treatment Response Procedure Tolerated Well -Offloading No -Debridement - Subq, 1st 20sq cm No -Apply Skin Sub - 1st 25 sq cm - Legs 1 -Epifix 18mm Disc 3 #2 R MED LE -Time 11:42 11:39 -Correct Patient Yes Yes -Correct Side, Site, Position Yes Yes -Correct Procedure Yes Yes -Procedure Performed Yes Yes -Type of Procedure Debridement Debridement -Clinical Debridement Subcutaneous Subcutaneous -Tissue Removed Subcutaneous Subcutaneous -Post Debridement (cm) - Length 6.2 6.1 -Post Debridement (cm) - Width 2.5 2.3 -Post Debridement (cm) - Depth 0.2 0.1 -Total Square (Post) (cm) 15.50 14.03 -Area of Debridement (cm) - Length 6.2 6.1 -Area of Debridement (cm) - Width 2.5 2.3 -Total Square (Area) (cm) 15.50 14.03 -Tunneling No No -Undermining/Tunneling No No -Circular Undermining No No -Wound/Ulcer Outcome Not Healed Not Healed -Ulcer Cleansing Rinsed/ Rinsed/ Irrigated with Irrigated with Saline Saline -Foul Odor after Cleansing No No -Bioengineered Tissue No No -Bleeding Controlled with Pressure Pressure -Treatment Response Procedure Procedure Tolerated Well Tolerated Well -Offloading No No -Debridement - Subq, 1st 20sq cm Yes Yes Pain Scale: 0-10 Numeric Is Patient Pain Free? Yes Yes WC - Nurse 3 - General Ulcer D/C NN Start: 11/04/24 11:13 Freq: Status: Active Protocol: Activity Type Activity Date Activity User E-sign Co-sign Detail Recorded Client Recorded Date Recorded By Document 07/30/24 12:00 DL [id number] 07/30/24 12:03 DL Document 08/02/24 11:28 DL [id number] 08/02/24 11:41 DL Document 08/06/24 11:50 KW [id number] 08/06/24 11:51 KW 07/30/24 08/02/24 08/06/24 12:00 11:28 11:50 Wound Care Center Nurse 3 #1 RT POST LE -Foul Odor after Cleansing No -Primary Dressing Applied Mepilex Border -Other Dressing Epimesh -Mepilex Border 1 -Wound Comment(s) Epifix intact, Dressing intact #2 R MED LE -Ulcer Cleansing Rinsed/ Soap and Water Irrigated with Saline -Foul Odor after Cleansing No No -Primary Dressing Applied Optilok 6.5x10, Optilok 6.5x10, Silvercel Silvercel Silvercel -Primary Dressing Covered/Secured with Dry Gauze & Dry Gauze & Dry Gauze, Roll Gauze, Roll Gauze, Secured with Secured with Secured with Tape Tape Tape -Optilok 6.5x10 1 1 -Silvercel 1 1 1 Right -Multi-Layered Wrap Application Multi-Layer Multi-Layer Comp - Right ($ Comp - Right ($ ) ) -Tubular Bandage Double Layer -Size of Tubigrip Used Size E -Size E ($) 2 Treatment Response Procedure Procedure Tolerated Well Tolerated Well Vital Signs Temperature (97.8 F-99.1 F) 97 F L Temperature Source Temporal Pulse Rate (60-100) 88 Pulse Location Monitor Respiratory Rate (12-18) 18 Respiratory rate source Observation Blood Pressure (90/60-120/80) 122/55 H Blood Pressure Mean (mm Hg) 77 Source Monitor Pain Scale: 0-10 Numeric Is Patient Pain Free? Yes Yes Yes WC - Visit Discharge Discharge Condition Stable Stable Ambulatory Status Ambulatory Ambulatory Transportation Private Auto Private Auto Notes: Dressing applied today per Sabina Sanders Assessment/Plan Assessment/Plan (1) Ulcer of right medial lower extremity with fat layer exposed: CODE(S): L97.812 - Non-pressure chronic ulcer of other part of right lower leg with fat layer exposed (2) 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 layer exposed: CODE(S): L97.212 - 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 layer exposed (3) Traumatic open wound of right lower leg: CODE(S): S81.801A - Unspecified open wound, right lower leg, initial encounter QUALIFIERS: Encounter type: subsequent encounter Qualified Code(s): S81.801D - Unspecified open wound, right lower leg, subsequent encounter (4) Non-pressure chronic ulcer of calf with fat layer exposed: CODE(S): L97.202 - Non-pressure chronic ulcer of unspecified calf with fat layer exposed QUALIFIERS: Laterality: right Qualified Code(s): L97.212 - 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 Right posterior leg ulcer is healed today after 2 applications of Epifix. Wound care - Right medial leg ulcer place Aquacel-Ag covered with ABD/gauze/silicone border dressing daily after gently washing with soap and water. She would benefit from an advanced wound healing product, such as Epifix, to the right Medial leg ulcer to help expidite the wound healing process. Compression - Compression stockings 30-40 mmHg. To be worn during the day and may remove them at bedtime. When she gets home, encouraged to keep legs elevated. Follow up one week.
--- NOTE | 2024-08-07 09:59 | WC ---
PHOTO 08/06/24 RIGHT ARY BANDA
[2024-08-13 11:34] VITALS: BP 165/73; PULSE 75; RESP 18; TEMP 36.2; BMI 38.2
--- NOTE | 2024-08-13 11:46 | PN.PCM_ITS ---
History of Present Illness Date of Service: 08/13/24 Chief Complaint: Traumatic wound of the right posterolateral leg and skin tear to right medial leg History of Wound: This is a 59-year-old female who presented with a traumatic wound on the right posterior calf. On May 11, 2024, during an appointment with her family physician, the patient injured her right posterior calf while dismounting from the examination table. Her right calf impacted the examination table, creating an open wound, for which the patient has sought evaluation and management. The patient had been using antibiotic ointment topically. She denies chronic swelling in her lower extremities. She denies a history of thrombophlebitis. She is ambulatory, and is able to ambulate liberally without limitations. 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 She claims to lead an active lifestyle. She was being seen by another provider but his scheduled day did not work with her work schedule so she was changed to my schedule. Today, 06/25/24 she presents with a new skin tear on her right medial leg. She states that it occurred one week ago when she was changing her dressing on her posterolateral leg ulcer when her foot slipped off the chair she was using to prop her right leg on and she obtained a traumatic skin tear to her right medial leg. She has been dressing it with Aquacel-Ag daily when she changes the posterolateral ulcer. Progress of Wound: Right posterolateral leg ulcer remains healed. Her right medial leg wound is smaller in size, ulcer bed is dark beefy pink color. Edema is controlled with compression stockings. Objective Data Objective Data Vital Signs: Vital Signs Temp Pulse Resp BP O2 Del Method 97.1 F L 75 18 165/73 H Room Air 08/13/24 11:34 08/13/24 11:34 08/13/24 11:34 08/13/24 11:34 08/13/24 11:34 Oxygen Delivery Method Room Air Weight: 216 lb Body Mass Index (BMI) 38.2 Charges/Coding Procedures Integumentary 111xxx-113xx: [id number] Crystal subq tissue 20 sq cm/< Debridement Note Debridement Note Wound debrided: #2 Medial leg ulcer Laterality: Right Wound Grade/Stage: StageIII Type of Debridement: Excisional debridement Anesthesia Used: 5% Lidocaine Gel Depth: Down to and including healthy tissue and in the subcutaneous layer Percentage of wound debrided: 100 Instrument Used: 7mm curette Tissue Removed: Non viable tissue and slough Severity: Fat Layer Exposed Amount of bleeding with debridement: Mild Bleeding Controlled with: Pressure and Compression and gauze Patient tolerated procedure: Patient tolerated procedure well Post-Debridement Measurements and Additional Note: Post-Debridement Measurements/Treatment WC - Nurse 1 - General Ulcer Assessment Start: 07/30/24 11:13 Freq: Status: Active Protocol: ABDIEL Activity Type Activity Date Activity User E-sign Co-sign Detail Recorded Client Recorded Date Recorded By Document 07/30/24 11:14 KW [id number] 07/30/24 11:20 KW Document 08/02/24 11:28 DL [id number] 08/02/24 11:41 DL Document 08/06/24 11:12 KW [id number] 08/06/24 11:22 KW Document 08/13/24 11:34 KW [id number] 08/13/24 11:36 KW 07/30/24 08/02/24 08/06/24 11:14 11:28 11:12 WC - Today's Visit Information Type of service Follow-up Visit Nurse-only Follow-up Visit (Physician/NEUROPHYSIOLOGY TECH Visit (Physician/NEUROPHYSIOLOGY TECH ) ) Arrival Mode Ambulatory Ambulatory Ambulatory Transfer Assistance None Patient Identification Verified (Name & Yes Yes Yes ) Patient Requires Transmission-Based No Precautions Height and Weight Body Mass Index (BMI) 38.2 38.2 38.2 BMI Classification Obese Obese Obese Vital Signs Temperature (97.8 F-99.1 F) 96.6 F L 97 F L Temperature Source Temporal Temporal Pulse Rate (60-100) 101 H 88 85 Pulse Location Monitor Monitor Monitor Respiratory Rate (12-18) 18 18 18 Respiratory rate source Observation Observation Observation Oxygen Delivery Method Room Air Room Air Blood Pressure (90/60-120/80) 156/72 H 122/55 H 147/90 H Blood Pressure Mean (mm Hg) 100 77 109 Source Monitor Monitor Monitor Position Sitting Semi-Fowlers Blood Pressure Location Left Arm Left Arm History Since Last Visit- (Skip if this is Patient's initial visit) Have you changed medications since your No No No last visit? Any new allergies or adverse reactions No No No Had a fall/change in ADL's that may No No No increase risk of falls Signs or symptoms of abuse and/or No No No neglect since last visit Have you been in the hospital since your No No No last visit? Has dressing in place as prescribed Yes Yes Yes Has compression in place as prescribed Yes Yes Yes Has offloadiing in place as prescribed N/A N/A N/A Experienced any changes in pain level or No No No management Left Footwear Regular Shoe Regular Shoe Regular Shoe Right Footwear Regular Shoe Regular Shoe Regular Shoe Pain Scale: 0-10 Numeric Is Patient Pain Free? No Yes Yes 08/13/24 11:34 WC - Today's Visit Information Type of service Follow-up Visit (Physician/NEUROPHYSIOLOGY TECH ) Arrival Mode Ambulatory Transfer Assistance Patient Identification Verified (Name & Yes ) Patient Requires Transmission-Based Precautions Height and Weight Body Mass Index (BMI) 38.2 BMI Classification Obese Vital Signs Temperature (97.8 F-99.1 F) 97.1 F L Temperature Source Temporal Pulse Rate (60-100) 75 Pulse Location Monitor Respiratory Rate (12-18) 18 Respiratory rate source Observation Oxygen Delivery Method Room Air Blood Pressure (90/60-120/80) 165/73 H Blood Pressure Mean (mm Hg) 103 Source Monitor Position Semi-Fowlers Blood Pressure Location Left Arm History Since Last Visit- (Skip if this is Patient's initial visit) Have you changed medications since your No last visit? Any new allergies or adverse reactions No Had a fall/change in ADL's that may No increase risk of falls Signs or symptoms of abuse and/or No neglect since last visit Have you been in the hospital since your No last visit? Has dressing in place as prescribed Yes Has compression in place as prescribed Yes Has offloadiing in place as prescribed Yes Experienced any changes in pain level or No management Left Footwear Regular Shoe Right Footwear Regular Shoe Pain Scale: 0-10 Numeric Is Patient Pain Free? Yes - Nurse 1 - General Ulcer Measurement Start: 07/30/24 11:13 Freq: Status: Active Protocol: Activity Type Activity Date Activity User E-sign Co-sign Detail Recorded Client Recorded Date Recorded By Document 07/30/24 11:14 KW [id number] 07/30/24 11:20 KW Document 08/02/24 11:28 DL [id number] 08/02/24 11:41 DL Document 08/06/24 11:12 KW [id number] 08/06/24 11:22 KW Document 08/13/24 11:34 KW [id number] 08/13/24 11:36 KW 07/30/24 08/02/24 08/06/24 11:14 11:28 11:12 Wound Center Nurse 1 #1 RT POST LE -Current Size (cm) - Length 0.1 1 -Current Size (cm) - Width 0.1 0.6 -Current Size (cm) - Depth 0.1 0.1 -Total Square Cm 0.01 0.6 -Date of Last Picture (Recall this 07/30/24 field) -Epithelialization Large 67-100% -Exudate Amt None Present None Present -Wound Margin Distinct, Outline Attached -Granulation Amt None Present (0 %) -Necrosis Amt Large (67-100%) -Necrotic Tissue Type Eschar -Texture (Tanisha-wound Skin Appearance) Assessed Assessed -Moisture (Tanisha-wound Skin Appearance) Assessed Assessed -Color (Tanisha-wound Skin Appearance) Assessed Assessed -Temperature (Tanisha-wound Skin No Abnormality No Abnormality Appearance) (Pt Warm) (Pt Warm) -Tenderness on Palpation (Tanisha-wound No No Skin Appearance) -Ulcer Cleansing Soap and Water -Foul Odor after Cleansing No -Anesthetic Used 5% Lidocaine Gel -Wound Comment(s) scab Epifix intact, scabbed mepilex border intact. #2 R MED LE -Combined with other wound No -Current Size (cm) - Length 6 6 -Current Size (cm) - Width 2.2 2 -Current Size (cm) - Depth 0.2 0.2 -Total Square Cm 13.2 12 -Date of Last Picture (Recall this 07/30/24 field) -Photo Taken Yes -Epithelialization None Present -Tunneling No -Undermining/Tunneling No -Circular Undermining No -Exudate Amt Medium Large -Exudate Type Serosanguineous Serosanguineous -Wound Margin Distinct, Distinct, Distinct, Outline Outline Outline Attached Attached Attached -Granulation Amt Medium (34-66%) Large (67-100%) Large (67-100%) -Granulation Quality Red Red Red -Slough/Fibrin Yes -Necrosis Amt Medium (34-66%) Small (1-33%) Small (1-33%) -Necrotic Tissue Type Adherent Slough Adherent Slough Adherent Slough -Structure Exposed N/A -Texture (Tanisha-wound Skin Appearance) Assessed, Scarring Assessed Scarring -Moisture (Tanisha-wound Skin Appearance) No Abnormality No Abnormality Assessed -Color (Tanisha-wound Skin Appearance) Assessed No Abnormality Assessed -Temperature (Tanisha-wound Skin No Abnormality No Abnormality No Abnormality Appearance) (Pt Warm) (Pt Warm) (Pt Warm) -Tenderness on Palpation (Tanisha-wound No No No Skin Appearance) -Ulcer Cleansing Rinsed/ Soap and Water Rinsed/ Irrigated with Irrigated with Saline Saline -Foul Odor after Cleansing No No -Anesthetic Used 5% Lidocaine 5% Lidocaine Gel Gel Lower Limb Edema Present Yes Right Calf (cm) 38.5 40 Right Ankle (cm) 21.5 21.8 08/13/24 11:34 Wound Center Nurse 1 #1 RT POST LE -Current Size (cm) - Length -Current Size (cm) - Width -Current Size (cm) - Depth -Total Square Cm -Date of Last Picture (Recall this field) -Epithelialization -Exudate Amt -Wound Margin -Granulation Amt -Necrosis Amt -Necrotic Tissue Type -Texture (Tanisha-wound Skin Appearance) -Moisture (Tanisha-wound Skin Appearance) -Color (Tanisha-wound Skin Appearance) -Temperature (Tanisha-wound Skin Appearance) -Tenderness on Palpation (Tanisha-wound Skin Appearance) -Ulcer Cleansing -Foul Odor after Cleansing -Anesthetic Used -Wound Comment(s) #2 R MED LE -Combined with other wound -Current Size (cm) - Length 5.6 -Current Size (cm) - Width 2 -Current Size (cm) - Depth 0.1 -Total Square Cm 11.2 -Date of Last Picture (Recall this field) -Photo Taken -Epithelialization -Tunneling -Undermining/Tunneling -Circular Undermining -Exudate Amt Small -Exudate Type Serosanguineous -Wound Margin Distinct, Outline Attached -Granulation Amt Large (67-100%) -Granulation Quality Red -Slough/Fibrin -Necrosis Amt -Necrotic Tissue Type -Structure Exposed -Texture (Tanisha-wound Skin Appearance) Assessed -Moisture (Tanisha-wound Skin Appearance) Assessed -Color (Tanisha-wound Skin Appearance) Assessed -Temperature (Tanisha-wound Skin No Abnormality Appearance) (Pt Warm) -Tenderness on Palpation (Tanisha-wound No Skin Appearance) -Ulcer Cleansing Rinsed/ Irrigated with Saline -Foul Odor after Cleansing No -Anesthetic Used 5% Lidocaine Gel Lower Limb Edema Present Right Calf (cm) 40.5 Right Ankle (cm) 21.6 WC - Nurse 2 - General Ulcer CM Notes Start: 07/30/24 11:13 Freq: Status: Active Protocol: Activity Type Activity Date Activity User E-sign Co-sign Detail Recorded Client Recorded Date Recorded By Document 07/30/24 11:41 JF [id number] 07/30/24 11:53 JF Document 08/06/24 11:39 JF [id number] 08/06/24 11:41 JF Document 08/13/24 11:41 BM [id number] 08/13/24 11:44 BMF 07/30/24 08/06/24 08/13/24 11:41 11:39 11:41 Wound Center Nurse 2 #1 RT POST LE -Time 11:45 11:39 -Correct Patient Yes No -Correct Side, Site, Position Yes No -Correct Procedure Yes No -Procedure Performed Yes No -Type of Procedure Debridement -Clinical Debridement Subcutaneous -Tissue Removed Subcutaneous -Post Debridement (cm) - Length 1.0 0 -Post Debridement (cm) - Width 0.6 0 -Post Debridement (cm) - Depth 0.1 0 -Total Square (Post) (cm) 0.60 0 -Area of Debridement (cm) - Length 1.0 0 -Area of Debridement (cm) - Width 0.6 0 -Total Square (Area) (cm) 0.60 0 -Tunneling No -Undermining/Tunneling No -Circular Undermining No -Wound/Ulcer Outcome Not Healed Healed- Epithelialized -Ulcer Cleansing Rinsed/ Irrigated with Saline -Foul Odor after Cleansing No -Bioengineered Tissue Yes -Type of Bioengineered Tissue Epifix 18mm Disc -Expiration Date 02/24/29 -Product Lot Number [id number] -Percent Used 100 -Lot number of Saline Used [id number] -Bleeding Controlled with Pressure -Treatment Response Procedure Tolerated Well -Offloading No -Debridement - Subq, 1st 20sq cm No -Apply Skin Sub - 1st 25 sq cm - Legs 1 -Epifix 18mm Disc 3 #2 R MED LE -Time 11:42 11:39 11:41 -Correct Patient Yes Yes Yes -Correct Side, Site, Position Yes Yes Yes -Correct Procedure Yes Yes Yes -Procedure Performed Yes Yes Yes -Type of Procedure Debridement Debridement Debridement -Clinical Debridement Subcutaneous Subcutaneous Subcutaneous -Tissue Removed Subcutaneous Subcutaneous Subcutaneous -Post Debridement (cm) - Length 6.2 6.1 5.2 -Post Debridement (cm) - Width 2.5 2.3 2.3 -Post Debridement (cm) - Depth 0.2 0.1 0.1 -Total Square (Post) (cm) 15.50 14.03 11.96 -Area of Debridement (cm) - Length 6.2 6.1 5.2 -Area of Debridement (cm) - Width 2.5 2.3 2.3 -Total Square (Area) (cm) 15.50 14.03 11.96 -Tunneling No No No -Undermining/Tunneling No No No -Circular Undermining No No No -Wound/Ulcer Outcome Not Healed Not Healed Not Healed -Ulcer Cleansing Rinsed/ Rinsed/ Rinsed/ Irrigated with Irrigated with Irrigated with Saline Saline Saline -Foul Odor after Cleansing No No No -Bioengineered Tissue No No No -Bleeding Controlled with Pressure Pressure Pressure -Treatment Response Procedure Procedure Procedure Tolerated Well Tolerated Well Tolerated Well -Offloading No No -Debridement - Subq, 1st 20sq cm Yes Yes Yes Pain Scale: 0-10 Numeric Is Patient Pain Free? Yes Yes Yes WC - Nurse 3 - General Ulcer D/C NN Start: 07/30/24 11:13 Freq: Status: Active Protocol: Activity Type Activity Date Activity User E-sign Co-sign Detail Recorded Client Recorded Date Recorded By Document 07/30/24 12:00 DL [id number] 07/30/24 12:03 DL Document 08/02/24 11:28 DL [id number] 08/02/24 11:41 DL Document 08/06/24 11:50 KW [id number] 08/06/24 11:51 KW 07/30/24 08/02/24 08/06/24 12:00 11:28 11:50 Wound Care Center Nurse 3 #1 RT POST LE -Foul Odor after Cleansing No -Primary Dressing Applied Mepilex Border -Other Dressing Epimesh -Mepilex Border 1 -Wound Comment(s) Epifix intact, Dressing intact #2 R MED LE -Ulcer Cleansing Rinsed/ Soap and Water Irrigated with Saline -Foul Odor after Cleansing No No -Primary Dressing Applied Optilok 6.5x10, Optilok 6.5x10, Silvercel Silvercel Silvercel -Primary Dressing Covered/Secured with Dry Gauze & Dry Gauze & Dry Gauze, Roll Gauze, Roll Gauze, Secured with Secured with Secured with Tape Tape Tape -Optilok 6.5x10 1 1 -Silvercel 1 1 1 Right -Multi-Layered Wrap Application Multi-Layer Multi-Layer Comp - Right ($ Comp - Right ($ ) ) -Tubular Bandage Double Layer -Size of Tubigrip Used Size E -Size E ($) 2 Treatment Response Procedure Procedure Tolerated Well Tolerated Well Vital Signs Temperature (97.8 F-99.1 F) 97 F L Temperature Source Temporal Pulse Rate (60-100) 88 Pulse Location Monitor Respiratory Rate (12-18) 18 Respiratory rate source Observation Blood Pressure (90/60-120/80) 122/55 H Blood Pressure Mean (mm Hg) 77 Source Monitor Pain Scale: 0-10 Numeric Is Patient Pain Free? Yes Yes Yes WC - Visit Discharge Discharge Condition Stable Stable Ambulatory Status Ambulatory Ambulatory Transportation Private Auto Private Auto Notes: Dressing applied today per Sabina Sanders Assessment/Plan Assessment/Plan (1) Ulcer of right medial lower extremity with fat layer exposed: CODE(S): L97.812 - Non-pressure chronic ulcer of other part of right lower leg with fat layer exposed (2) Traumatic open wound of right lower leg: CODE(S): S81.801A - Unspecified open wound, right lower leg, initial encounter QUALIFIERS: Encounter type: subsequent encounter Qualified Code(s): S81.801D - Unspecified open wound, right lower leg, subsequent encounter PLAN: Plan Patient evaluated at the wound healing center today. Right posterior leg ulcer healed after 2 applications of Epifix. Wound care - Right medial leg ulcer place Aquacel-Ag covered with ABD/gauze/silicone border dressing daily after gently washing with soap and water. She would benefit from an advanced wound healing product, such as Epifix, to the right Medial leg ulcer to help expedite the wound healing process. Compression - Compression stockings 30-40 mmHg. To be worn during the day and may remove them at bedtime. When she gets home, encouraged to keep legs elevated. Follow up one week.
== END 2024-08-25 23:59 | disposition home or self-care (01) ==
LOC: WC 11:15
PROVIDERS: PCP Internal Medicine; Referring Provider Physician Assistant; Visit Provider Nurse Practitioner Family
DX: L97.212 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 layer exposed (principal); L97.812 Non-pressure chronic ulcer of other part of right lower leg with fat layer exposed; S81.801D Unspecified open wound, right lower leg, subsequent encounter; X58.XXXD Exposure to other specified factors, subsequent encounter
CPT/HCPCS: 11042; 15271; 29581; Q4186

== ENCOUNTER 2024-09-24 11:15 | Outpatient (RCR) | payer OTHER, SELFPAY ==
[2024-08-26 00:15] VITALS: BP 134/93; PULSE 102; RESP 18; TEMP 36.8; BMI 38.2
[2024-08-27 11:06] VITALS: BP 124/75; PULSE 87; RESP 18; TEMP 36.4; BMI 38.2
--- NOTE | 2024-08-27 12:08 | PCM.WC.PN ---
History of Present Illness Date of Service: 08/27/24 Chief Complaint: Traumatic wound of the right posterolateral leg and skin tear to right medial leg History of Wound: This is a 59-year-old female who presented with a traumatic wound on the right posterior calf. On May 11, 2024, during an appointment with her family physician, the patient injured her right posterior calf while dismounting from the examination table. Her right calf impacted the examination table, creating an open wound, for which the patient has sought evaluation and management. The patient had been using antibiotic ointment topically. She denies chronic swelling in her lower extremities. She denies a history of thrombophlebitis. She is ambulatory, and is able to ambulate liberally without limitations. 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 She claims to lead an active lifestyle. She was being seen by another provider but his scheduled day did not work with her work schedule so she was changed to my schedule. Today, 06/25/24 she presents with a new skin tear on her right medial leg. She states that it occurred one week ago when she was changing her dressing on her posterolateral leg ulcer when her foot slipped off the chair she was using to prop her right leg on and she obtained a traumatic skin tear to her right medial leg. Right posterior calf ulcer has healed. She now is trying to heal the right medial leg ulcer. She denies fever, chills, nausea or vomiting. Progress of Wound: Right posterior calf ulcer remains healed. Right medial leg ulcer is smaller in size. She has been approved for Epifix, which the first application will be done today. She has been wearing compression stockings. Objective Data Objective Data Vital Signs: Vital Signs Temp Pulse Resp BP O2 Del Method 97.5 F L 87 18 124/75 H Venturi Mask 08/27/24 11:06 08/27/24 11:06 08/27/24 11:06 08/27/24 11:06 08/27/24 11:06 Oxygen Delivery Method Venturi Mask Weight: 216 lb Body Mass Index (BMI) 38.2 Charges/Coding Procedures Integumentary 150xxx-152xx: 23434 Skin sub graft trnk/arm/leg Debridement Note Debridement Note Wound debrided: #2 Medial leg ulcer Laterality: Right Wound Grade/Stage: StageIII Type of Debridement: Excisional debridement Anesthesia Used: 5% Lidocaine Gel Depth: Down to and including healthy tissue and in the subcutaneous layer Percentage of wound debrided: 100 Instrument Used: 5mm curette Tissue Removed: Non viable tissue and slough Severity: Fat Layer Exposed Amount of bleeding with debridement: Mild Bleeding Controlled with: Pressure and Compression and gauze Patient tolerated procedure: Patient tolerated procedure well Post-Debridement Measurements and Additional Note: Post-Debridement Measurements/Treatment RAMONITA - Nurse 1 - General Ulcer Assessment Start: 08/27/24 11:06 Freq: Status: Active Protocol: ABDIEL Activity Type Activity Date Activity User E-sign Co-sign Detail Recorded Client Recorded Date Recorded By Document 08/27/24 11:06 DL [id number] 08/27/24 11:12 DL 08/27/24 11:06 RAMONITA - Today's Visit Information Type of service Follow-up Visit (Physician/HEEL PACKER ) Arrival Mode Ambulatory Transfer Assistance None Patient Identification Verified (Name & Yes ) Patient Requires Transmission-Based No Precautions Height and Weight Body Mass Index (BMI) 38.2 BMI Classification Obese Vital Signs Temperature (97.8 F-99.1 F) 97.5 F L Temperature Source Temporal Pulse Rate (60-100) 87 Pulse Location Monitor Respiratory Rate (12-18) 18 Respiratory rate source Observation Oxygen Delivery Method Venturi Mask Blood Pressure (90/60-120/80) 124/75 H Blood Pressure Mean (mm Hg) 91 Source Monitor History Since Last Visit- (Skip if this is Patient's initial visit) Have you changed medications since your No last visit? Any new allergies or adverse reactions No Had a fall/change in ADL's that may No increase risk of falls Signs or symptoms of abuse and/or No neglect since last visit Have you been in the hospital since your No last visit? Has dressing in place as prescribed Yes Has compression in place as prescribed Yes Has offloadiing in place as prescribed N/A Experienced any changes in pain level or No management Pain Scale: 0-10 Numeric Is Patient Pain Free? Yes RAMONITA - Nurse 1 - General Ulcer Measurement Start: 08/27/24 11:06 Freq: Status: Active Protocol: Activity Type Activity Date Activity User E-sign Co-sign Detail Recorded Client Recorded Date Recorded By Document 08/27/24 11:06 VU [id number] 08/27/24 11:12 DL 12/02/24 11:06 Wound Center Nurse 1 #2 R MED LE -Current Size (cm) - Length 4.5 -Current Size (cm) - Width 1.4 -Current Size (cm) - Depth 0.1 -Total Square Cm 6.30 -Exudate Amt Medium -Exudate Type Serosanguineous -Wound Margin Distinct, Outline Attached -Granulation Amt Large (67-100%) -Granulation Quality Red -Necrosis Amt Small (1-33%) -Necrotic Tissue Type Adherent Slough -Structure Exposed N/A -Texture (Tanisha-wound Skin Appearance) Scarring -Moisture (Tanisha-wound Skin Appearance) No Abnormality -Color (Tanisha-wound Skin Appearance) No Abnormality -Temperature (Tanisha-wound Skin No Abnormality Appearance) (Pt Warm) -Ulcer Cleansing Soap and Water -Foul Odor after Cleansing No -Anesthetic Used 5% Lidocaine Gel Right Calf (cm) 38.4 Right Ankle (cm) 21.3 WC - Nurse 2 - General Ulcer CM Notes Start: 08/27/24 11:06 Freq: Status: Active Protocol: Activity Type Activity Date Activity User E-sign Co-sign Detail Recorded Client Recorded Date Recorded By Document 08/27/24 11:30 DINAH [id number] 08/27/24 11:33 DINAH 08/27/24 11:30 Wound Center Nurse 2 #2 R MED LE -Time 11:31 -Correct Patient Yes -Correct Side, Site, Position Yes -Correct Procedure Yes -Procedure Performed Yes -Type of Procedure Debridement -Clinical Debridement Subcutaneous -Tissue Removed Subcutaneous -Post Debridement (cm) - Length 4.3 -Post Debridement (cm) - Width 1.2 -Post Debridement (cm) - Depth 0.1 -Total Square (Post) (cm) 5.16 -Area of Debridement (cm) - Length 4.3 -Area of Debridement (cm) - Width 1.2 -Total Square (Area) (cm) 5.16 -Tunneling No -Undermining/Tunneling No -Circular Undermining No -Wound/Ulcer Outcome Not Healed -Ulcer Cleansing Rinsed/ Irrigated with Saline -Foul Odor after Cleansing No -Bioengineered Tissue Yes -Type of Bioengineered Tissue Epifix -Expiration Date 02/24/29 -Product Lot Number [id number] -Percent Used 100 -Lot number of Saline Used [id number] -Bleeding Controlled with Pressure -Treatment Response Procedure Tolerated Well -Offloading No -Debridement - Subq, 1st 20sq cm No -Apply Skin Sub - 1st 25 sq cm - Legs 1 -Epifix (per sq cm) 4 Pain Scale: 0-10 Numeric Is Patient Pain Free? Yes - Nurse 3 - General Ulcer D/C NN Start: 08/27/24 11:06 Freq: Status: Active Protocol: Activity Type Activity Date Activity User E-sign Co-sign Detail Recorded Client Recorded Date Recorded By Document 08/27/24 11:33 [id number] 08/27/24 11:36 DINAH 08/27/24 11:33 Wound Care Center Nurse 3 #2 R MED LE -Ulcer Cleansing Rinsed/ Irrigated with Saline -Foul Odor after Cleansing No -Primary Dressing Applied Mepilex Border -Other Dressing hydrogel -Primary Dressing Covered/Secured with Dry Gauze -Mepilex Border 1 Right -Tubular Bandage Double Layer -Size of Tubigrip Used Size E -Size E ($) 2 Pain Scale: 0-10 Numeric Is Patient Pain Free? Yes - Visit Discharge Discharge Condition Stable Ambulatory Status Ambulatory Transportation Private Auto Medication Reconcilliation completed & Yes provided to patient/care provider Clinical Summary of Care Provided Yes Assessment/Plan Assessment/Plan (1) Ulcer of right medial lower extremity with fat layer exposed: CODE(S): L97.812 - Non-pressure chronic ulcer of other part of right lower leg with fat layer exposed (2) Traumatic open wound of right lower leg: CODE(S): S81.801A - Unspecified open wound, right lower leg, initial encounter QUALIFIERS: Encounter type: subsequent encounter Qualified Code(s): S81.801D - Unspecified open wound, right lower leg, subsequent encounter PLAN: Plan Patient evaluated at the wound healing center today. Right posterior leg ulcer healed after 2 applications of Epifix. Wound care - She has been approved for Epifix for the right medial leg ulcer. Today is the first application of Epifix 2x2 cm, 100% of product was used. Covered with wound veil that was secured with steri strips. Hydrogel placed over the Epifix and covered with Mepilex dressing. She was instructed not to get this area wet. Compression - Compression stockings 30-40 mmHg. To be worn during the day and may remove them at bedtime. When she gets home, encouraged to keep legs elevated. Follow up one week.
[2024-09-03 11:41] VITALS: BP 136/91; PULSE 113; RESP 18; TEMP 36.3; BMI 38.2
--- NOTE | 2024-09-03 13:51 | PCM.WC.PN ---
History of Present Illness Date of Service: 09/03/24 Chief Complaint: Traumatic wound of the right posterolateral leg and skin tear to right medial leg History of Wound: This is a 59-year-old female who presented with a traumatic wound on the right posterior calf. On May 11, 2024, during an appointment with her family physician, the patient injured her right posterior calf while dismounting from the examination table. Her right calf impacted the examination table, creating an open wound, for which the patient has sought evaluation and management. The patient had been using antibiotic ointment topically. She denies chronic swelling in her lower extremities. She denies a history of thrombophlebitis. She is ambulatory, and is able to ambulate liberally without limitations. 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 She claims to lead an active lifestyle. She was being seen by another provider but his scheduled day did not work with her work schedule so she was changed to my schedule. Today, 06/25/24 she presents with a new skin tear on her right medial leg. She states that it occurred one week ago when she was changing her dressing on her posterolateral leg ulcer when her foot slipped off the chair she was using to prop her right leg on and she obtained a traumatic skin tear to her right medial leg. Right posterior calf ulcer has healed. She now is trying to heal the right medial leg ulcer. She denies fever, chills, nausea or vomiting. Progress of Wound: Right posterior calf ulcer remains healed. Right medial leg ulcer is smaller in size. She has been approved for Epifix, which the first application was applied last week and she tolerated it well. She has been wearing compression stockings. Objective Data Objective Data Vital Signs: Vital Signs Temp Pulse Resp BP O2 Del Method 97.4 F L 113 H 18 136/91 H Room Air 09/03/24 11:41 09/03/24 11:41 09/03/24 11:41 09/03/24 11:41 09/03/24 11:41 Oxygen Delivery Method Room Air Weight: 216 lb Body Mass Index (BMI) 38.2 Charges/Coding Procedures Integumentary 150xxx-152xx: 47060 Skin sub graft trnk/arm/leg Debridement Note Debridement Note Wound debrided: #2 Medial leg ulcer Laterality: Right Wound Grade/Stage: StageIII Type of Debridement: Excisional debridement Anesthesia Used: 5% Lidocaine Gel Depth: Down to and including healthy tissue and in the subcutaneous layer Percentage of wound debrided: 100 Instrument Used: 5mm curette Tissue Removed: Non viable tissue and slough Severity: Fat Layer Exposed Amount of bleeding with debridement: Mild Bleeding Controlled with: Pressure and Compression and gauze Patient tolerated procedure: Patient tolerated procedure well Post-Debridement Measurements and Additional Note: Post-Debridement Measurements/Treatment WC - Nurse 1 - General Ulcer Assessment Start: 08/27/24 11:06 Freq: Status: Active Protocol: [email or web address] Activity Type Activity Date Activity User E-sign Co-sign Detail Recorded Client Recorded Date Recorded By Document 08/27/24 11:06 DL [id number] 08/27/24 11:12 DL Document 09/03/24 11:41 KW [id number] 09/03/24 11:49 KW 08/27/24 09/03/24 11:06 11:41 - Today's Visit Information Type of service Follow-up Visit Follow-up Visit (Physician/[employer]PLICATING [employer]IT SUPERVISOR (Physician/[employer]OF[employer]PLICATING [employer]IT SUPERVISOR ) ) Arrival Mode Ambulatory Ambulatory Transfer Assistance None Patient Identification Verified (Name & Yes Yes ) Patient Requires Transmission-Based No Precautions Height and Weight Body Mass Index (BMI) 38.2 38.2 BMI Classification Obese Obese Vital Signs Temperature (97.8 F-99.1 F) 97.5 F L 97.4 F L Temperature Source Temporal Temporal Pulse Rate (60-100) 87 113 H Pulse Location Monitor Monitor Respiratory Rate (12-18) 18 18 Respiratory rate source Observation Observation Oxygen Delivery Method Venturi Mask Room Air Blood Pressure (90/60-120/80) 124/75 H 136/91 H Blood Pressure Mean (mm Hg) 91 106 Source Monitor Monitor Position Semi-Fowlers Blood Pressure Location Left Arm History Since Last Visit- (Skip if this is Patient's initial visit) Have you changed medications since your No No last visit? Any new allergies or adverse reactions No No Had a fall/change in ADL's that may No No increase risk of falls Signs or symptoms of abuse and/or No No neglect since last visit Have you been in the hospital since your No No last visit? Has dressing in place as prescribed Yes Yes Has compression in place as prescribed Yes Yes Has offloadiing in place as prescribed N/A N/A Experienced any changes in pain level or No No management Left Footwear Regular Shoe Right Footwear Regular Shoe Pain Scale: 0-10 Numeric Is Patient Pain Free? Yes Yes RAMONITA - Nurse 1 - General Ulcer Measurement Start: 08/27/24 11:06 Freq: Status: Active Protocol: Activity Type Activity Date Activity User E-sign Co-sign Detail Recorded Client Recorded Date Recorded By Document 08/27/24 11:06 DL [id number] 08/27/24 11:12 DL Document 09/03/24 11:41 KW [id number] 09/03/24 11:49 KW 08/27/24 09/03/24 11:06 11:41 Wound Center Nurse 1 #2 R MED LE -Current Size (cm) - Length 4.5 5 -Current Size (cm) - Width 1.4 1.2 -Current Size (cm) - Depth 0.1 0.1 -Total Square Cm 6.30 6.0 -Date of Last Picture (Recall this 09/03/24 field) -Exudate Amt Medium Medium -Exudate Type Serosanguineous Serosanguineous -Wound Margin Distinct, Distinct, Outline Outline Attached Attached -Granulation Amt Large (67-100%) Large (67-100%) -Granulation Quality Red Red -Necrosis Amt Small (1-33%) -Necrotic Tissue Type Adherent Slough -Structure Exposed N/A -Texture (Tanisha-wound Skin Appearance) Scarring Assessed -Moisture (Tanisha-wound Skin Appearance) No Abnormality Assessed -Color (Tanisha-wound Skin Appearance) No Abnormality Assessed, Ecchymosis -Temperature (Tanisha-wound Skin No Abnormality No Abnormality Appearance) (Pt Warm) (Pt Warm) -Tenderness on Palpation (Tanisha-wound No Skin Appearance) -Ulcer Cleansing Soap and Water Soap and Water -Foul Odor after Cleansing No No -Anesthetic Used 5% Lidocaine 5% Lidocaine Gel Gel Right Calf (cm) 38.4 Right Ankle (cm) 21.3 WC - Nurse 2 - General Ulcer CM Notes Start: 08/27/24 11:06 Freq: Status: Active Protocol: Activity Type Activity Date Activity User E-sign Co-sign Detail Recorded Client Recorded Date Recorded By Document 08/27/24 11:30 JF [id number] 08/27/24 11:33 JF Document 09/03/24 12:07 JF [id number] 09/03/24 12:09 JF 08/27/24 09/03/24 11:30 12:07 Wound Center Nurse 2 #2 R MED LE -Time 11:31 12:07 -Correct Patient Yes Yes -Correct Side, Site, Position Yes Yes -Correct Procedure Yes Yes -Procedure Performed Yes Yes -Type of Procedure Debridement Debridement -Clinical Debridement Subcutaneous Subcutaneous -Tissue Removed Subcutaneous Subcutaneous -Post Debridement (cm) - Length 4.3 4.5 -Post Debridement (cm) - Width 1.2 1.3 -Post Debridement (cm) - Depth 0.1 0.1 -Total Square (Post) (cm) 5.16 5.85 -Area of Debridement (cm) - Length 4.3 4.5 -Area of Debridement (cm) - Width 1.2 1.3 -Total Square (Area) (cm) 5.16 5.85 -Tunneling No No -Undermining/Tunneling No No -Circular Undermining No No -Wound/Ulcer Outcome Not Healed Not Healed -Ulcer Cleansing Rinsed/ Rinsed/ Irrigated with Irrigated with Saline Saline -Foul Odor after Cleansing No No -Bioengineered Tissue Yes Yes -Type of Bioengineered Tissue Epifix Epifix -Expiration Date 02/24/29 02/24/29 -Product Lot Number [id number] -Percent Used 100 100 -Lot number of Saline Used [id number] -Bleeding Controlled with Pressure Pressure -Treatment Response Procedure Procedure Tolerated Well Tolerated Well -Offloading No No -Debridement - Subq, 1st 20sq cm No No -Apply Skin Sub - 1st 25 sq cm - Legs 1 1 -Epifix (per sq cm) 4 4 Pain Scale: 0-10 Numeric Is Patient Pain Free? Yes Yes - Nurse 3 - General Ulcer D/C NN Start: 08/27/24 11:06 Freq: Status: Active Protocol: Activity Type Activity Date Activity User E-sign Co-sign Detail Recorded Client Recorded Date Recorded By Document 08/27/24 11:33 DINAH [id number] 08/27/24 11:36 Document 09/03/24 12:12 DINAH [id number] 09/03/24 12:13 08/27/24 09/03/24 11:33 12:12 Wound Care Center Nurse 3 #2 R MED LE -Ulcer Cleansing Rinsed/ Rinsed/ Irrigated with Irrigated with Saline Saline -Foul Odor after Cleansing No No -Primary Dressing Applied Mepilex Border Mepilex Border -Other Dressing hydrogel -Primary Dressing Covered/Secured with Dry Gauze Dry Gauze -Mepilex Border 1 1 Right -Tubular Bandage Double Layer -Size of Tubigrip Used Size E -Size E ($) 2 Pain Scale: 0-10 Numeric Is Patient Pain Free? Yes Yes WC - Visit Discharge Discharge Condition Stable Stable Ambulatory Status Ambulatory Ambulatory Transportation Private Auto Private Auto Medication Reconcilliation completed & Yes Yes provided to patient/care provider Clinical Summary of Care Provided Yes Yes Assessment/Plan Assessment/Plan (1) Ulcer of right medial lower extremity with fat layer exposed: CODE(S): L97.812 - Non-pressure chronic ulcer of other part of right lower leg with fat layer exposed (2) Traumatic open wound of right lower leg: CODE(S): S81.801A - Unspecified open wound, right lower leg, initial encounter QUALIFIERS: Encounter type: subsequent encounter Qualified Code(s): S81.801D - Unspecified open wound, right lower leg, subsequent encounter PLAN: Plan Patient evaluated at the wound healing center today. Right posterior leg ulcer healed after 2 applications of Epifix. Wound care - She has been approved for Epifix for the right medial leg ulcer. Today is the second application of Epifix 2x2 cm, 100% of product was used. Covered with wound veil that was secured with steri strips. Hydrogel placed over the Epifix and covered with Mepilex dressing. She was instructed not to get this area wet. Compression - Compression stockings 30-40 mmHg. To be worn during the day and may remove them at bedtime. When she gets home, encouraged to keep legs elevated. Follow up one week.
--- NOTE | 2024-09-04 14:41 | WC ---
PHOTO 09/03/24 RIGHT MEDIAL LE
[2024-09-10 11:38] VITALS: BP 154/82; PULSE 101; RESP 16; TEMP 35.7; BMI 38.2
--- NOTE | 2024-09-10 13:05 | PCM.WC.PN ---
History of Present Illness Date of Service: 09/10/24 Chief Complaint: Traumatic wound of the right posterolateral leg and skin tear to right medial leg History of Wound: This is a 59-year-old female who presented with a traumatic wound on the right posterior calf. On May 11, 2024, during an appointment with her family physician, the patient injured her right posterior calf while dismounting from the examination table. Her right calf impacted the examination table, creating an open wound, for which the patient has sought evaluation and management. The patient had been using antibiotic ointment topically. She denies chronic swelling in her lower extremities. She denies a history of thrombophlebitis. She is ambulatory, and is able to ambulate liberally without limitations. 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 She claims to lead an active lifestyle. She was being seen by another provider but his scheduled day did not work with her work schedule so she was changed to my schedule. On 06/25/24 she presents with a new skin tear on her right medial leg. She states that it occurred one week ago when she was changing her dressing on her posterolateral leg ulcer when her foot slipped off the chair she was using to prop her right leg on and she obtained a traumatic skin tear to her right medial leg. Right posterior calf ulcer has healed. She now is trying to heal the right medial leg ulcer. She denies fever, chills, nausea or vomiting. Progress of Wound: Right leg ulcer is smaller in size. She has been approved for Epifix, which she has tolerated it well. She has been wearing compression stockings. Objective Data Objective Data Vital Signs: Vital Signs Temp Pulse Resp BP O2 Del Method 96.3 F L 101 H 16 154/82 H Room Air 09/10/24 11:38 09/10/24 11:38 09/10/24 11:38 09/10/24 11:38 09/10/24 11:38 Oxygen Delivery Method Room Air Weight: 216 lb Body Mass Index (BMI) 38.2 Charges/Coding Procedures Integumentary 150xxx-152xx: [id number] Skin sub graft trnk/arm/leg Debridement Note Debridement Note Wound debrided: #2 Medial leg ulcer Laterality: Right Wound Grade/Stage: StageIII Type of Debridement: Excisional debridement Anesthesia Used: 5% Lidocaine Gel Depth: Down to and including healthy tissue and in the subcutaneous layer Percentage of wound debrided: 100 Instrument Used: 5mm curette Tissue Removed: Non viable tissue and slough Severity: Fat Layer Exposed Amount of bleeding with debridement: Mild Bleeding Controlled with: Pressure and Compression and gauze Patient tolerated procedure: Patient tolerated procedure well Post-Debridement Measurements and Additional Note: Post-Debridement Measurements/Treatment WC - Nurse 1 - General Ulcer Assessment Start: 08/27/24 11:06 Freq: Status: Active Protocol: ABDIEL Activity Type Activity Date Activity User E-sign Co-sign Detail Recorded Client Recorded Date Recorded By Document 08/27/24 11:06 DL [id number] 08/27/24 11:12 DL Document 09/03/24 11:41 KW [id number] 09/03/24 11:49 KW Document 09/10/24 11:38 KW [id number] 09/10/24 11:43 KW 08/27/24 09/03/24 09/10/24 11:06 11:41 11:38 - Today's Visit Information Type of service Follow-up Visit Follow-up Visit Follow-up Visit (Physician/OPERATIONS STAFF SPECIALIST SECURITY (Physician/OPERATIONS STAFF SPECIALIST SECURITY (Physician/OPERATIONS STAFF SPECIALIST SECURITY ) ) ) Arrival Mode Ambulatory Ambulatory Ambulatory Transfer Assistance None Patient Identification Verified (Name & Yes Yes Yes ) Patient Requires Transmission-Based No Precautions Height and Weight Body Mass Index (BMI) 38.2 38.2 38.2 BMI Classification Obese Obese Obese Vital Signs Temperature (97.8 F-99.1 F) 97.5 F L 97.4 F L 96.3 F L Temperature Source Temporal Temporal Temporal Pulse Rate (60-100) 87 113 H 101 H Pulse Location Monitor Monitor Monitor Respiratory Rate (12-18) 18 18 16 Respiratory rate source Observation Observation Observation Oxygen Delivery Method Venturi Mask Room Air Room Air Blood Pressure (90/60-120/80) 124/75 H 136/91 H 154/82 H Blood Pressure Mean (mm Hg) 91 106 106 Source Monitor Monitor Monitor Position Semi-Fowlers Semi-Fowlers Blood Pressure Location Left Arm Left Arm History Since Last Visit- (Skip if this is Patient's initial visit) Have you changed medications since your No No No last visit? Any new allergies or adverse reactions No No No Had a fall/change in ADL's that may No No No increase risk of falls Signs or symptoms of abuse and/or No No No neglect since last visit Have you been in the hospital since your No No No last visit? Has dressing in place as prescribed Yes Yes Yes Has compression in place as prescribed Yes Yes Yes Has offloadiing in place as prescribed N/A N/A N/A Experienced any changes in pain level or No No No management Left Footwear Regular Shoe Regular Shoe Right Footwear Regular Shoe Regular Shoe Pain Scale: 0-10 Numeric Is Patient Pain Free? Yes Yes Yes WC - Nurse 1 - General Ulcer Measurement Start: 08/27/24 11:06 Freq: Status: Active Protocol: Activity Type Activity Date Activity User E-sign Co-sign Detail Recorded Client Recorded Date Recorded By Document 08/27/24 11:06 DL [id number] 08/27/24 11:12 DL Document 09/03/24 11:41 KW [id number] 09/03/24 11:49 KW Document 09/10/24 11:38 KW [id number] 09/10/24 11:43 KW 08/27/24 09/03/24 09/10/24 11:06 11:41 11:38 Wound Center Nurse 1 #2 R MED LE -Current Size (cm) - Length 4.5 5 4.7 -Current Size (cm) - Width 1.4 1.2 0.9 -Current Size (cm) - Depth 0.1 0.1 0.1 -Total Square Cm 6.30 6.0 4.23 -Date of Last Picture (Recall this 09/03/24 09/10/24 field) -Exudate Amt Medium Medium Medium -Exudate Type Serosanguineous Serosanguineous Serosanguineous -Wound Margin Distinct, Distinct, Distinct, Outline Outline Outline Attached Attached Attached -Granulation Amt Large (67-100%) Large (67-100%) Large (67-100%) -Granulation Quality Red Red Red -Necrosis Amt Small (1-33%) -Necrotic Tissue Type Adherent Slough -Structure Exposed N/A -Texture (Tanisha-wound Skin Appearance) Scarring Assessed Assessed -Moisture (Tanisha-wound Skin Appearance) No Abnormality Assessed Assessed -Color (Tanisha-wound Skin Appearance) No Abnormality Assessed, Assessed Ecchymosis -Temperature (Tanisha-wound Skin No Abnormality No Abnormality No Abnormality Appearance) (Pt Warm) (Pt Warm) (Pt Warm) -Tenderness on Palpation (Tanisha-wound No No Skin Appearance) -Ulcer Cleansing Soap and Water Soap and Water Soap and Water -Foul Odor after Cleansing No No No -Anesthetic Used 5% Lidocaine 5% Lidocaine 5% Lidocaine Gel Gel Gel Right Calf (cm) 38.4 38.8 Right Ankle (cm) 21.3 23 WC - Nurse 2 - General Ulcer CM Notes Start: 08/27/24 11:06 Freq: Status: Active Protocol: Activity Type Activity Date Activity User E-sign Co-sign Detail Recorded Client Recorded Date Recorded By Document 08/27/24 11:30 [id number] 08/27/24 11:33 Document 09/03/24 12:07 [id number] 09/03/24 12:09 Document 09/10/24 12:17 [id number] 09/10/24 12:18 08/27/24 09/03/24 09/10/24 11:30 12:07 12:17 Wound Center Nurse 2 #2 R MED LE -Time 11:31 12:07 12:17 -Correct Patient Yes Yes Yes -Correct Side, Site, Position Yes Yes Yes -Correct Procedure Yes Yes Yes -Procedure Performed Yes Yes Yes -Type of Procedure Debridement Debridement Debridement -Clinical Debridement Subcutaneous Subcutaneous Subcutaneous -Tissue Removed Subcutaneous Subcutaneous Subcutaneous -Post Debridement (cm) - Length 4.3 4.5 4.3 -Post Debridement (cm) - Width 1.2 1.3 1 -Post Debridement (cm) - Depth 0.1 0.1 0.1 -Total Square (Post) (cm) 5.16 5.85 4.3 -Area of Debridement (cm) - Length 4.3 4.5 4.3 -Area of Debridement (cm) - Width 1.2 1.3 1 -Total Square (Area) (cm) 5.16 5.85 4.3 -Tunneling No No No -Undermining/Tunneling No No No -Circular Undermining No No No -Wound/Ulcer Outcome Not Healed Not Healed Not Healed -Ulcer Cleansing Rinsed/ Rinsed/ Rinsed/ Irrigated with Irrigated with Irrigated with Saline Saline Saline -Foul Odor after Cleansing No No No -Bioengineered Tissue Yes Yes Yes -Type of Bioengineered Tissue Epifix Epifix Epifix -Expiration Date 02/24/29 02/24/29 02/24/29 -Product Lot Number [id number] -Percent Used 100 100 100 -Lot number of Saline Used [id number] -Bleeding Controlled with Pressure Pressure Pressure -Treatment Response Procedure Procedure Procedure Tolerated Well Tolerated Well Tolerated Well -Offloading No No No -Debridement - Subq, 1st 20sq cm No No No -Apply Skin Sub - 1st 25 sq cm - Legs 1 1 1 -Epifix (per sq cm) 4 4 4 Pain Scale: 0-10 Numeric Is Patient Pain Free? Yes Yes Yes - Nurse 3 - General Ulcer D/C NN Start: 08/27/24 11:06 Freq: Status: Active Protocol: Activity Type Activity Date Activity User E-sign Co-sign Detail Recorded Client Recorded Date Recorded By Document 08/27/24 11:33 [id number] 08/27/24 11:36 Document 09/03/24 12:12 [id number] 09/03/24 12:13 Document 09/10/24 12:20 [id number] 09/10/24 12:21 08/27/24 09/03/24 09/10/24 11:33 12:12 12:20 Wound Care Center Nurse 3 #2 R MED LE -Ulcer Cleansing Rinsed/ Rinsed/ Rinsed/ Irrigated with Irrigated with Irrigated with Saline Saline Saline -Foul Odor after Cleansing No No -Primary Dressing Applied Mepilex Border Mepilex Border Mepilex Border -Other Dressing hydrogel -Primary Dressing Covered/Secured with Dry Gauze Dry Gauze Dry Gauze -Mepilex Border 1 1 1 Right -Tubular Bandage Double Layer -Size of Tubigrip Used Size E -Size E ($) 2 Pain Scale: 0-10 Numeric Is Patient Pain Free? Yes Yes Yes - Visit Discharge Discharge Condition Stable Stable Stable Ambulatory Status Ambulatory Ambulatory Ambulatory Transportation Private Auto Private Auto Private Auto Medication Reconcilliation completed & Yes Yes Yes provided to patient/care provider Clinical Summary of Care Provided Yes Yes Yes Assessment/Plan Assessment/Plan (1) Ulcer of right medial lower extremity with fat layer exposed: CODE(S): L97.812 - Non-pressure chronic ulcer of other part of right lower leg with fat layer exposed (2) Traumatic open wound of right lower leg: CODE(S): S81.801A - Unspecified open wound, right lower leg, initial encounter QUALIFIERS: Encounter type: subsequent encounter Qualified Code(s): S81.801D - Unspecified open wound, right lower leg, subsequent encounter PLAN: Plan Patient evaluated at the wound healing center today. Right posterior leg ulcer healed after 2 applications of Epifix. Wound care - She has been approved for Epifix for the right medial leg ulcer. Today is the 3rd application of Epifix 2x2 cm, 100% of product was used. Covered with wound veil that was secured with steri strips. Hydrogel placed over the Epifix and covered with Mepilex dressing. She was instructed not to get this area wet. Compression - Compression stockings 30-40 mmHg. To be worn during the day and may remove them at bedtime. When she gets home, encouraged to keep legs elevated. Follow up one week.
--- NOTE | 2024-09-12 13:45 | WC ---
PHOTO 09/10/24 FROY
[2024-09-17 11:43] VITALS: BP 178/81; PULSE 84; RESP 16; TEMP 35.9; BMI 38.2
--- NOTE | 2024-09-17 12:26 | PCM.WC.PN ---
History of Present Illness Date of Service: 09/17/24 Chief Complaint: Traumatic wound of the right posterolateral leg and skin tear to right medial leg History of Wound: This is a 59-year-old female who presented with a traumatic wound on the right posterior calf. On May 11, 2024, during an appointment with her family physician, the patient injured her right posterior calf while dismounting from the examination table. Her right calf impacted the examination table, creating an open wound, for which the patient has sought evaluation and management. The patient had been using antibiotic ointment topically. She denies chronic swelling in her lower extremities. She denies a history of thrombophlebitis. She is ambulatory, and is able to ambulate liberally without limitations. 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 She claims to lead an active lifestyle. She was being seen by another provider but his scheduled day did not work with her work schedule so she was changed to my schedule. On 06/25/24 she presents with a new skin tear on her right medial leg. She states that it occurred one week ago when she was changing her dressing on her posterolateral leg ulcer when her foot slipped off the chair she was using to prop her right leg on and she obtained a traumatic skin tear to her right medial leg. Right posterior calf ulcer has healed. She now is trying to heal the right medial leg ulcer. She denies fever, chills, nausea or vomiting. Progress of Wound: Right leg ulcer is smaller in size. She has been approved for Epifix, which she has tolerated it well. She has been wearing compression stockings. Objective Data Objective Data Vital Signs: Vital Signs Temp Pulse Resp BP O2 Del Method 96.6 F L 84 16 178/81 H Room Air 09/17/24 11:43 09/17/24 11:43 09/17/24 11:43 09/17/24 11:43 09/17/24 11:43 Oxygen Delivery Method Room Air Weight: 216 lb Body Mass Index (BMI) 38.2 Charges/Coding Procedures Integumentary 150xxx-152xx: 46514 Skin sub graft trnk/arm/leg Debridement Note Debridement Note Wound debrided: #2 Medial leg ulcer Laterality: Right Wound Grade/Stage: StageIII Type of Debridement: Excisional debridement Anesthesia Used: 5% Lidocaine Gel Depth: Down to and including healthy tissue and in the subcutaneous layer Percentage of wound debrided: 100 Instrument Used: 3mm curette Tissue Removed: Non viable tissue and slough Severity: Fat Layer Exposed Amount of bleeding with debridement: Mild Bleeding Controlled with: Pressure and Compression and gauze Patient tolerated procedure: Patient tolerated procedure well Post-Debridement Measurements and Additional Note: Post-Debridement Measurements/Treatment WC - Nurse 1 - General Ulcer Assessment Start: 08/27/24 11:06 Freq: Status: Active Protocol: ABDIEL Activity Type Activity Date Activity User E-sign Co-sign Detail Recorded Client Recorded Date Recorded By Document 08/27/24 11:06 DL [id number] 08/27/24 11:12 DL Document 09/03/24 11:41 KW [id number] 09/03/24 11:49 KW Document 09/10/24 11:38 KW [id number] 09/10/24 11:43 KW Document 09/17/24 11:43 BMF [id number] 09/17/24 11:51 BMF 08/27/24 09/03/24 09/10/24 11:06 11:41 11:38 - Today's Visit Information Type of service Follow-up Visit Follow-up Visit Follow-up Visit (Physician/CAR COUPLER (Physician/CAR COUPLER (Physician/CAR COUPLER ) ) ) Arrival Mode Ambulatory Ambulatory Ambulatory Transfer Assistance None Patient Identification Verified (Name & Yes Yes Yes ) Patient Requires Transmission-Based No Precautions Height and Weight Body Mass Index (BMI) 38.2 38.2 38.2 BMI Classification Obese Obese Obese Vital Signs Temperature (97.8 F-99.1 F) 97.5 F L 97.4 F L 96.3 F L Temperature Source Temporal Temporal Temporal Pulse Rate (60-100) 87 113 H 101 H Pulse Location Monitor Monitor Monitor Respiratory Rate (12-18) 18 18 16 Respiratory rate source Observation Observation Observation Oxygen Delivery Method Venturi Mask Room Air Room Air Blood Pressure (90/60-120/80) 124/75 H 136/91 H 154/82 H Blood Pressure Mean (mm Hg) 91 106 106 Source Monitor Monitor Monitor Position Semi-Fowlers Semi-Fowlers Blood Pressure Location Left Arm Left Arm History Since Last Visit- (Skip if this is Patient's initial visit) Have you changed medications since your No No No last visit? Any new allergies or adverse reactions No No No Had a fall/change in ADL's that may No No No increase risk of falls Signs or symptoms of abuse and/or No No No neglect since last visit Have you been in the hospital since your No No No last visit? Has dressing in place as prescribed Yes Yes Yes Has compression in place as prescribed Yes Yes Yes Has offloadiing in place as prescribed N/A N/A N/A Experienced any changes in pain level or No No No management Left Footwear Regular Shoe Regular Shoe Right Footwear Regular Shoe Regular Shoe Pain Scale: 0-10 Numeric Is Patient Pain Free? Yes Yes Yes 09/17/24 11:43 - Today's Visit Information Type of service Follow-up Visit (Physician/CAR COUPLER ) Arrival Mode Ambulatory Transfer Assistance None Patient Identification Verified (Name & Yes ) Patient Requires Transmission-Based No Precautions Height and Weight Body Mass Index (BMI) 38.2 BMI Classification Obese Vital Signs Temperature (97.8 F-99.1 F) 96.6 F L Temperature Source Temporal Pulse Rate (60-100) 84 Pulse Location Monitor Respiratory Rate (12-18) 16 Respiratory rate source Observation Oxygen Delivery Method Room Air Blood Pressure (90/60-120/80) 178/81 H Blood Pressure Mean (mm Hg) 113 Source Monitor Position Sitting Blood Pressure Location Right Arm History Since Last Visit- (Skip if this is Patient's initial visit) Have you changed medications since your No last visit? Any new allergies or adverse reactions No Had a fall/change in ADL's that may No increase risk of falls Signs or symptoms of abuse and/or No neglect since last visit Have you been in the hospital since your No last visit? Has dressing in place as prescribed Yes Has compression in place as prescribed Yes Has offloadiing in place as prescribed N/A Experienced any changes in pain level or No management Left Footwear Regular Shoe Right Footwear Regular Shoe Pain Scale: 0-10 Numeric Is Patient Pain Free? Yes - Nurse 1 - General Ulcer Measurement Start: 08/27/24 11:06 Freq: Status: Active Protocol: Activity Type Activity Date Activity User E-sign Co-sign Detail Recorded Client Recorded Date Recorded By Document 08/27/24 11:06 DL [id number] 08/27/24 11:12 DL Document 09/03/24 11:41 KW [id number] 09/03/24 11:49 KW Document 09/10/24 11:38 KW [id number] 09/10/24 11:43 KW Document 09/17/24 11:43 [facility] [id number] 09/17/24 11:51 BM 08/27/24 09/03/24 09/10/24 11:06 11:41 11:38 Wound Center Nurse 1 #2 R MED LE -Combined with other wound -Current Size (cm) - Length 4.5 5 4.7 -Current Size (cm) - Width 1.4 1.2 0.9 -Current Size (cm) - Depth 0.1 0.1 0.1 -Total Square Cm 6.30 6.0 4.23 -Date of Last Picture (Recall this 09/03/24 09/10/24 field) -Photo Taken -Tunneling -Undermining/Tunneling -Circular Undermining -Exudate Amt Medium Medium Medium -Exudate Type Serosanguineous Serosanguineous Serosanguineous -Wound Margin Distinct, Distinct, Distinct, Outline Outline Outline Attached Attached Attached -Granulation Amt Large (67-100%) Large (67-100%) Large (67-100%) -Granulation Quality Red Red Red -Slough/Fibrin -Necrosis Amt Small (1-33%) -Necrotic Tissue Type Adherent Slough -Structure Exposed N/A -Texture (Tanisha-wound Skin Appearance) Scarring Assessed Assessed -Moisture (Tanisha-wound Skin Appearance) No Abnormality Assessed Assessed -Color (Tanisha-wound Skin Appearance) No Abnormality Assessed, Assessed Ecchymosis -Temperature (Tanisha-wound Skin No Abnormality No Abnormality No Abnormality Appearance) (Pt Warm) (Pt Warm) (Pt Warm) -Tenderness on Palpation (Tanisha-wound No No Skin Appearance) -Ulcer Cleansing Soap and Water Soap and Water Soap and Water -Foul Odor after Cleansing No No No -Anesthetic Used 5% Lidocaine 5% Lidocaine 5% Lidocaine Gel Gel Gel Lower Limb Edema Present Right Calf (cm) 38.4 38.8 Right Ankle (cm) 21.3 23 09/17/24 11:43 Wound Center Nurse 1 #2 R MED LE -Combined with other wound No -Current Size (cm) - Length 4.2 -Current Size (cm) - Width 0.6 -Current Size (cm) - Depth 0.1 -Total Square Cm 2.52 -Date of Last Picture (Recall this 09/17/24 field) -Photo Taken Yes -Tunneling No -Undermining/Tunneling No -Circular Undermining No -Exudate Amt Medium -Exudate Type Serosanguineous -Wound Margin Distinct, Outline Attached -Granulation Amt None Present (0 %) -Granulation Quality -Slough/Fibrin Yes -Necrosis Amt Large (67-100%) -Necrotic Tissue Type Eschar -Structure Exposed -Texture (Tanisha-wound Skin Appearance) Assessed -Moisture (Tanisha-wound Skin Appearance) Assessed,Dry/ Scaly -Color (Tanisha-wound Skin Appearance) Assessed -Temperature (Tanisha-wound Skin No Abnormality Appearance) (Pt Warm) -Tenderness on Palpation (Tanisha-wound No Skin Appearance) -Ulcer Cleansing Soap and Water -Foul Odor after Cleansing No -Anesthetic Used 5% Lidocaine Gel Lower Limb Edema Present Yes Right Calf (cm) 39.2 Right Ankle (cm) 22.5 WC - Nurse 2 - General Ulcer CM Notes Start: 08/27/24 11:06 Freq: Status: Active Protocol: Activity Type Activity Date Activity User E-sign Co-sign Detail Recorded Client Recorded Date Recorded By Document 08/27/24 11:30 [id number] 08/27/24 11:33 Document 09/03/24 12:07 [id number] 09/03/24 12:09 Document 09/10/24 12:17 [id number] 09/10/24 12:18 Document 09/17/24 12:04 [id number] 09/17/24 12:07 08/27/24 09/03/24 09/10/24 11:30 12:07 12:17 Wound Center Nurse 2 #2 R MED LE -Time 11:31 12:07 12:17 -Correct Patient Yes Yes Yes -Correct Side, Site, Position Yes Yes Yes -Correct Procedure Yes Yes Yes -Procedure Performed Yes Yes Yes -Type of Procedure Debridement Debridement Debridement -Clinical Debridement Subcutaneous Subcutaneous Subcutaneous -Tissue Removed Subcutaneous Subcutaneous Subcutaneous -Post Debridement (cm) - Length 4.3 4.5 4.3 -Post Debridement (cm) - Width 1.2 1.3 1 -Post Debridement (cm) - Depth 0.1 0.1 0.1 -Total Square (Post) (cm) 5.16 5.85 4.3 -Area of Debridement (cm) - Length 4.3 4.5 4.3 -Area of Debridement (cm) - Width 1.2 1.3 1 -Total Square (Area) (cm) 5.16 5.85 4.3 -Tunneling No No No -Undermining/Tunneling No No No -Circular Undermining No No No -Wound/Ulcer Outcome Not Healed Not Healed Not Healed -Ulcer Cleansing Rinsed/ Rinsed/ Rinsed/ Irrigated with Irrigated with Irrigated with Saline Saline Saline -Foul Odor after Cleansing No No No -Bioengineered Tissue Yes Yes Yes -Type of Bioengineered Tissue Epifix Epifix Epifix -Expiration Date 02/24/29 02/24/29 02/24/29 -Product Lot Number [id number] -Percent Used 100 100 100 -Lot number of Saline Used [id number] -Bleeding Controlled with Pressure Pressure Pressure -Treatment Response Procedure Procedure Procedure Tolerated Well Tolerated Well Tolerated Well -Offloading No No No -Debridement - Subq, 1st 20sq cm No No No -Apply Skin Sub - 1st 25 sq cm - Legs 1 1 1 -Epifix (per sq cm) 4 4 4 Pain Scale: 0-10 Numeric Is Patient Pain Free? Yes Yes Yes 09/17/24 12:04 Wound Center Nurse 2 #2 R MED LE -Time 12:05 -Correct Patient Yes -Correct Side, Site, Position Yes -Correct Procedure Yes -Procedure Performed Yes -Type of Procedure Debridement -Clinical Debridement Subcutaneous -Tissue Removed Subcutaneous -Post Debridement (cm) - Length 3.9 -Post Debridement (cm) - Width 0.9 -Post Debridement (cm) - Depth 0.1 -Total Square (Post) (cm) 3.51 -Area of Debridement (cm) - Length 3.9 -Area of Debridement (cm) - Width 0.9 -Total Square (Area) (cm) 3.51 -Tunneling No -Undermining/Tunneling No -Circular Undermining No -Wound/Ulcer Outcome Not Healed -Ulcer Cleansing Rinsed/ Irrigated with Saline -Foul Odor after Cleansing No -Bioengineered Tissue Yes -Type of Bioengineered Tissue Epifix -Expiration Date 04/26/29 -Product Lot Number [id number] -Percent Used 100 -Lot number of Saline Used [id number] -Bleeding Controlled with Pressure -Treatment Response Procedure Tolerated Well -Offloading No -Debridement - Subq, 1st 20sq cm No -Apply Skin Sub - 1st 25 sq cm - Legs 1 -Epifix (per sq cm) 4 Pain Scale: 0-10 Numeric Is Patient Pain Free? Yes - Nurse 3 - General Ulcer D/C NN Start: 08/27/24 11:06 Freq: Status: Active Protocol: Activity Type Activity Date Activity User E-sign Co-sign Detail Recorded Client Recorded Date Recorded By Document 08/27/24 11:33 [id number] 08/27/24 11:36 Document 09/03/24 12:12 [id number] 09/03/24 12:13 Document 09/10/24 12:20 [id number] 09/10/24 12:21 Document 09/17/24 12:08 [id number] 09/17/24 12:09 08/27/24 09/03/24 09/10/24 11:33 12:12 12:20 Wound Care Center Nurse 3 #2 R MED LE -Ulcer Cleansing Rinsed/ Rinsed/ Rinsed/ Irrigated with Irrigated with Irrigated with Saline Saline Saline -Foul Odor after Cleansing No No -Primary Dressing Applied Mepilex Border Mepilex Border Mepilex Border -Other Dressing hydrogel -Primary Dressing Covered/Secured with Dry Gauze Dry Gauze Dry Gauze -Mepilex Border 1 1 1 Right -Tubular Bandage Double Layer -Size of Tubigrip Used Size E -Size E ($) 2 -Stockings Pain Scale: 0-10 Numeric Is Patient Pain Free? Yes Yes Yes - Visit Discharge Discharge Condition Stable Stable Stable Ambulatory Status Ambulatory Ambulatory Ambulatory Transportation Private Auto Private Auto Private Auto Medication Reconcilliation completed & Yes Yes Yes provided to patient/care provider Clinical Summary of Care Provided Yes Yes Yes 09/17/24 12:08 Wound Care Center Nurse 3 #2 R MED LE -Ulcer Cleansing Rinsed/ Irrigated with Saline -Foul Odor after Cleansing No -Primary Dressing Applied Mepilex Border -Other Dressing -Primary Dressing Covered/Secured with Dry Gauze -Mepilex Border 1 Right -Tubular Bandage -Size of Tubigrip Used -Size E ($) -Stockings Yes Pain Scale: 0-10 Numeric Is Patient Pain Free? Yes WC - Visit Discharge Discharge Condition Stable Ambulatory Status Ambulatory Transportation Private Auto Medication Reconcilliation completed & Yes provided to patient/care provider Clinical Summary of Care Provided Yes Assessment/Plan Assessment/Plan (1) Ulcer of right medial lower extremity with fat layer exposed: CODE(S): L97.812 - Non-pressure chronic ulcer of other part of right lower leg with fat layer exposed (2) Traumatic open wound of right lower leg: CODE(S): S81.801A - Unspecified open wound, right lower leg, initial encounter QUALIFIERS: Encounter type: subsequent encounter Qualified Code(s): S81.801D - Unspecified open wound, right lower leg, subsequent encounter PLAN: Plan Patient evaluated at the wound healing center today. Right posterior leg ulcer healed after 2 applications of Epifix. Wound care - She has been approved for Epifix for the right medial leg ulcer. Today is the 4th application of Epifix 2x2 cm, 100% of product was used. Covered with wound veil that was secured with steri strips. Hydrogel placed over the Epifix and covered with Mepilex dressing. She may change the outer dressing if she needs to, above the wound veil. She was instructed not to get this area wet. Compression - Compression stockings 30-40 mmHg. To be worn during the day and may remove them at bedtime. When she gets home, encouraged to keep legs elevated. Follow up one week.
[2024-09-24 11:27] VITALS: BP 144/75; PULSE 92; RESP 18; TEMP 36.6; BMI 38.2
--- NOTE | 2024-09-24 13:19 | PCM.WC.PN ---
History of Present Illness Date of Service: 09/24/24 Chief Complaint: Traumatic wound of the right posterolateral leg and skin tear to right medial leg History of Wound: This is a 59-year-old female who presented with a traumatic wound on the right posterior calf. On May 11, 2024, during an appointment with her family physician, the patient injured her right posterior calf while dismounting from the examination table. Her right calf impacted the examination table, creating an open wound, for which the patient has sought evaluation and management. The patient had been using antibiotic ointment topically. She denies chronic swelling in her lower extremities. She denies a history of thrombophlebitis. She is ambulatory, and is able to ambulate liberally without limitations. 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 She claims to lead an active lifestyle. She was being seen by another provider but his scheduled day did not work with her work schedule so she was changed to my schedule. On 06/25/24 she presents with a new skin tear on her right medial leg. She states that it occurred one week ago when she was changing her dressing on her posterolateral leg ulcer when her foot slipped off the chair she was using to prop her right leg on and she obtained a traumatic skin tear to her right medial leg. Right posterior calf ulcer has healed. She now is trying to heal the right medial leg ulcer. She denies fever, chills, nausea or vomiting. Progress of Wound: Right leg ulcer is smaller in size. She has been approved for Epifix, which she has tolerated it well. She has been wearing compression stockings. Objective Data Objective Data Vital Signs: Vital Signs Temp Pulse Resp BP O2 Del Method 97.8 F 92 18 144/75 H Room Air 09/24/24 11:27 09/24/24 11:27 09/24/24 11:27 09/24/24 11:27 09/17/24 11:43 Oxygen Delivery Method Room Air Weight: 216 lb Body Mass Index (BMI) 38.2 Charges/Coding Procedures Integumentary 150xxx-152xx: 32522 Skin sub graft trnk/arm/leg Debridement Note Debridement Note Wound debrided: #2 Medial leg ulcer Laterality: Right Wound Grade/Stage: StageIII Type of Debridement: Excisional debridement Anesthesia Used: 5% Lidocaine Gel Depth: Down to and including healthy tissue and in the subcutaneous layer Percentage of wound debrided: 100 Instrument Used: 3mm curette Tissue Removed: Non viable tissue and slough Severity: Fat Layer Exposed Amount of bleeding with debridement: Mild Bleeding Controlled with: Pressure and Compression and gauze Patient tolerated procedure: Patient tolerated procedure well Post-Debridement Measurements and Additional Note: Post-Debridement Measurements/Treatment WC - Nurse 1 - General Ulcer Assessment Start: 08/27/24 11:06 Freq: Status: Active Protocol: ABDIEL Activity Type Activity Date Activity User E-sign Co-sign Detail Recorded Client Recorded Date Recorded By Document 08/27/24 11:06 DL [id number] 08/27/24 11:12 DL Document 09/03/24 11:41 KW [id number] 09/03/24 11:49 KW Document 09/10/24 11:38 KW [id number] 09/10/24 11:43 KW Document 09/17/24 11:43 BMF [id number] 09/17/24 11:51 BMF Document 09/24/24 11:27 DL [id number] 09/24/24 11:33 DL 08/27/24 09/03/24 09/10/24 11:06 11:41 11:38 - Today's Visit Information Type of service Follow-up Visit Follow-up Visit Follow-up Visit (Physician/FINISH REPAIR WORKER (Physician/FINISH REPAIR WORKER (Physician/FINISH REPAIR WORKER ) ) ) Arrival Mode Ambulatory Ambulatory Ambulatory Transfer Assistance None Patient Identification Verified (Name & Yes Yes Yes ) Patient Requires Transmission-Based No Precautions Height and Weight Body Mass Index (BMI) 38.2 38.2 38.2 BMI Classification Obese Obese Obese Vital Signs Temperature (97.8 F-99.1 F) 97.5 F L 97.4 F L 96.3 F L Temperature Source Temporal Temporal Temporal Pulse Rate (60-100) 87 113 H 101 H Pulse Location Monitor Monitor Monitor Respiratory Rate (12-18) 18 18 16 Respiratory rate source Observation Observation Observation Oxygen Delivery Method Venturi Mask Room Air Room Air Blood Pressure (90/60-120/80) 124/75 H 136/91 H 154/82 H Blood Pressure Mean (mm Hg) 91 106 106 Source Monitor Monitor Monitor Position Semi-Fowlers Semi-Fowlers Blood Pressure Location Left Arm Left Arm History Since Last Visit- (Skip if this is Patient's initial visit) Have you changed medications since your No No No last visit? Any new allergies or adverse reactions No No No Had a fall/change in ADL's that may No No No increase risk of falls Signs or symptoms of abuse and/or No No No neglect since last visit Have you been in the hospital since your No No No last visit? Has dressing in place as prescribed Yes Yes Yes Has compression in place as prescribed Yes Yes Yes Has offloadiing in place as prescribed N/A N/A N/A Experienced any changes in pain level or No No No management Left Footwear Regular Shoe Regular Shoe Right Footwear Regular Shoe Regular Shoe Pain Scale: 0-10 Numeric Is Patient Pain Free? Yes Yes Yes 09/17/24 09/24/24 11:43 11:27 WC - Today's Visit Information Type of service Follow-up Visit Follow-up Visit (Physician/FINISH REPAIR WORKER (Physician/FINISH REPAIR WORKER ) ) Arrival Mode Ambulatory Ambulatory Transfer Assistance None None Patient Identification Verified (Name & Yes Yes ) Patient Requires Transmission-Based No No Precautions Height and Weight Body Mass Index (BMI) 38.2 38.2 BMI Classification Obese Obese Vital Signs Temperature (97.8 F-99.1 F) 96.6 F L 97.8 F Temperature Source Temporal Temporal Pulse Rate (60-100) 84 92 Pulse Location Monitor Monitor Respiratory Rate (12-18) 16 18 Respiratory rate source Observation Oxygen Delivery Method Room Air Blood Pressure (90/60-120/80) 178/81 H 144/75 H Blood Pressure Mean (mm Hg) 113 98 Source Monitor Monitor Position Sitting Blood Pressure Location Right Arm History Since Last Visit- (Skip if this is Patient's initial visit) Have you changed medications since your No No last visit? Any new allergies or adverse reactions No No Had a fall/change in ADL's that may No No increase risk of falls Signs or symptoms of abuse and/or No No neglect since last visit Have you been in the hospital since your No No last visit? Has dressing in place as prescribed Yes Yes Has compression in place as prescribed Yes No Has offloadiing in place as prescribed N/A N/A Experienced any changes in pain level or No No management Left Footwear Regular Shoe Right Footwear Regular Shoe Pain Scale: 0-10 Numeric Is Patient Pain Free? Yes Yes - Nurse 1 - General Ulcer Measurement Start: 08/27/24 11:06 Freq: Status: Active Protocol: Activity Type Activity Date Activity User E-sign Co-sign Detail Recorded Client Recorded Date Recorded By Document 08/27/24 11:06 DL [id number] 08/27/24 11:12 DL Document 09/03/24 11:41 KW [id number] 09/03/24 11:49 KW Document 09/10/24 11:38 KW [id number] 09/10/24 11:43 KW Document 09/17/24 11:43 BMF [id number] 09/17/24 11:51 BMF Document 09/24/24 11:27 DL [id number] 09/24/24 11:33 DL 08/27/24 09/03/24 09/10/24 11:06 11:41 11:38 Wound Center Nurse 1 #2 R MED LE -Combined with other wound -Current Size (cm) - Length 4.5 5 4.7 -Current Size (cm) - Width 1.4 1.2 0.9 -Current Size (cm) - Depth 0.1 0.1 0.1 -Total Square Cm 6.30 6.0 4.23 -Date of Last Picture (Recall this 09/03/24 09/10/24 field) -Photo Taken -Tunneling -Undermining/Tunneling -Circular Undermining -Exudate Amt Medium Medium Medium -Exudate Type Serosanguineous Serosanguineous Serosanguineous -Wound Margin Distinct, Distinct, Distinct, Outline Outline Outline Attached Attached Attached -Granulation Amt Large (67-100%) Large (67-100%) Large (67-100%) -Granulation Quality Red Red Red -Slough/Fibrin -Necrosis Amt Small (1-33%) -Necrotic Tissue Type Adherent Slough -Structure Exposed N/A -Texture (Tanisha-wound Skin Appearance) Scarring Assessed Assessed -Moisture (Tanisha-wound Skin Appearance) No Abnormality Assessed Assessed -Color (Tanisha-wound Skin Appearance) No Abnormality Assessed, Assessed Ecchymosis -Temperature (Tanisha-wound Skin No Abnormality No Abnormality No Abnormality Appearance) (Pt Warm) (Pt Warm) (Pt Warm) -Tenderness on Palpation (Tanisha-wound No No Skin Appearance) -Ulcer Cleansing Soap and Water Soap and Water Soap and Water -Foul Odor after Cleansing No No No -Anesthetic Used 5% Lidocaine 5% Lidocaine 5% Lidocaine Gel Gel Gel Lower Limb Edema Present Right Calf (cm) 38.4 38.8 Right Ankle (cm) 21.3 23 09/17/24 09/24/24 11:43 11:27 Wound Center Nurse 1 #2 R MED LE -Combined with other wound No -Current Size (cm) - Length 4.2 2.8 -Current Size (cm) - Width 0.6 0.8 -Current Size (cm) - Depth 0.1 0.1 -Total Square Cm 2.52 2.24 -Date of Last Picture (Recall this 09/17/24 field) -Photo Taken Yes Yes -Tunneling No -Undermining/Tunneling No -Circular Undermining No -Exudate Amt Medium Medium -Exudate Type Serosanguineous Serosanguineous -Wound Margin Distinct, Distinct, Outline Outline Attached Attached -Granulation Amt None Present (0 Medium (34-66%) %) -Granulation Quality Red -Slough/Fibrin Yes -Necrosis Amt Large (67-100%) Medium (34-66%) -Necrotic Tissue Type Eschar Adherent Slough -Structure Exposed N/A -Texture (Tanisha-wound Skin Appearance) Assessed Scarring -Moisture (Tanisha-wound Skin Appearance) Assessed,Dry/ No Abnormality Scaly -Color (Tanisha-wound Skin Appearance) Assessed No Abnormality -Temperature (Tanisha-wound Skin No Abnormality No Abnormality Appearance) (Pt Warm) (Pt Warm) -Tenderness on Palpation (Tanisha-wound No Skin Appearance) -Ulcer Cleansing Soap and Water Soap and Water -Foul Odor after Cleansing No No -Anesthetic Used 5% Lidocaine 5% Lidocaine Gel Gel Lower Limb Edema Present Yes Right Calf (cm) 39.2 39.8 Right Ankle (cm) 22.5 22 - Nurse 2 - General Ulcer CM Notes Start: 08/27/24 11:06 Freq: Status: Active Protocol: Activity Type Activity Date Activity User E-sign Co-sign Detail Recorded Client Recorded Date Recorded By Document 08/27/24 11:30 DINAH [id number] 08/27/24 11:33 Document 09/03/24 12:07 DINAH [id number] 09/03/24 12:09 JF Document 09/10/24 12:17 DINAH [id number] 09/10/24 12:18 Document 09/17/24 12:04 DINAH [id number] 09/17/24 12:07 JF Document 09/24/24 11:51 DS [id number] 09/24/24 11:57 DS 08/27/24 09/03/24 09/10/24 11:30 12:07 12:17 Wound Center Nurse 2 #2 R MED LE -Time 11:31 12:07 12:17 -Correct Patient Yes Yes Yes -Correct Side, Site, Position Yes Yes Yes -Correct Procedure Yes Yes Yes -Procedure Performed Yes Yes Yes -Type of Procedure Debridement Debridement Debridement -Clinical Debridement Subcutaneous Subcutaneous Subcutaneous -Tissue Removed Subcutaneous Subcutaneous Subcutaneous -Post Debridement (cm) - Length 4.3 4.5 4.3 -Post Debridement (cm) - Width 1.2 1.3 1 -Post Debridement (cm) - Depth 0.1 0.1 0.1 -Total Square (Post) (cm) 5.16 5.85 4.3 -Area of Debridement (cm) - Length 4.3 4.5 4.3 -Area of Debridement (cm) - Width 1.2 1.3 1 -Total Square (Area) (cm) 5.16 5.85 4.3 -Tunneling No No No -Undermining/Tunneling No No No -Circular Undermining No No No -Wound/Ulcer Outcome Not Healed Not Healed Not Healed -Ulcer Cleansing Rinsed/ Rinsed/ Rinsed/ Irrigated with Irrigated with Irrigated with Saline Saline Saline -Foul Odor after Cleansing No No No -Bioengineered Tissue Yes Yes Yes -Type of Bioengineered Tissue Epifix Epifix Epifix -Expiration Date 02/24/29 02/24/29 02/24/29 -Product Lot Number [id number] -Percent Used 100 100 100 -Lot number of Saline Used [id number] -Bleeding Controlled with Pressure Pressure Pressure -Treatment Response Procedure Procedure Procedure Tolerated Well Tolerated Well Tolerated Well -Offloading No No No -Debridement - Subq, 1st 20sq cm No No No -Apply Skin Sub - 1st 25 sq cm - Legs 1 1 1 -Epifix (per sq cm) 4 4 4 Pain Scale: 0-10 Numeric Is Patient Pain Free? Yes Yes Yes 09/17/24 09/24/24 12:04 11:51 Wound Center Nurse 2 #2 R MED LE -Time 12:05 11:51 -Correct Patient Yes Yes -Correct Side, Site, Position Yes Yes -Correct Procedure Yes Yes -Procedure Performed Yes Yes -Type of Procedure Debridement Debridement -Clinical Debridement Subcutaneous Subcutaneous -Tissue Removed Subcutaneous Subcutaneous -Post Debridement (cm) - Length 3.9 2.8 -Post Debridement (cm) - Width 0.9 0.9 -Post Debridement (cm) - Depth 0.1 0.1 -Total Square (Post) (cm) 3.51 2.52 -Area of Debridement (cm) - Length 3.9 2.8 -Area of Debridement (cm) - Width 0.9 0.9 -Total Square (Area) (cm) 3.51 2.52 -Tunneling No No -Undermining/Tunneling No No -Circular Undermining No No -Wound/Ulcer Outcome Not Healed Not Healed -Ulcer Cleansing Rinsed/ Rinsed/ Irrigated with Irrigated with Saline Saline -Foul Odor after Cleansing No -Bioengineered Tissue Yes Yes -Type of Bioengineered Tissue Epifix Epifix -Expiration Date 04/26/29 02/24/29 -Product Lot Number [id number] -Percent Used 100 100 -Lot number of Saline Used [id number] -Bleeding Controlled with Pressure Pressure -Treatment Response Procedure Procedure Tolerated Well Tolerated Well -Offloading No -Debridement - Subq, 1st 20sq cm No No -Apply Skin Sub - 1st 25 sq cm - Legs 1 1 -Epifix (per sq cm) 4 4 Pain Scale: 0-10 Numeric Is Patient Pain Free? Yes Yes - Nurse 3 - General Ulcer D/C NN Start: 08/27/24 11:06 Freq: Status: Active Protocol: Activity Type Activity Date Activity User E-sign Co-sign Detail Recorded Client Recorded Date Recorded By Document 08/27/24 11:33 [id number] 08/27/24 11:36 Document 09/03/24 12:12 DINAH [id number] 09/03/24 12:13 Document 09/10/24 12:20 DINAH [id number] 09/10/24 12:21 Document 09/17/24 12:08 DINAH [id number] 09/17/24 12:09 08/27/24 09/03/24 09/10/24 11:33 12:12 12:20 Wound Care Center Nurse 3 #2 R MED LE -Ulcer Cleansing Rinsed/ Rinsed/ Rinsed/ Irrigated with Irrigated with Irrigated with Saline Saline Saline -Foul Odor after Cleansing No No -Primary Dressing Applied Mepilex Border Mepilex Border Mepilex Border -Other Dressing hydrogel -Primary Dressing Covered/Secured with Dry Gauze Dry Gauze Dry Gauze -Mepilex Border 1 1 1 Right -Tubular Bandage Double Layer -Size of Tubigrip Used Size E -Size E ($) 2 -Stockings Pain Scale: 0-10 Numeric Is Patient Pain Free? Yes Yes Yes WC - Visit Discharge Discharge Condition Stable Stable Stable Ambulatory Status Ambulatory Ambulatory Ambulatory Transportation Private Auto Private Auto Private Auto Medication Reconcilliation completed & Yes Yes Yes provided to patient/care provider Clinical Summary of Care Provided Yes Yes Yes 09/17/24 12:08 Wound Care Center Nurse 3 #2 R MED LE -Ulcer Cleansing Rinsed/ Irrigated with Saline -Foul Odor after Cleansing No -Primary Dressing Applied Mepilex Border -Other Dressing -Primary Dressing Covered/Secured with Dry Gauze -Mepilex Border 1 Right -Tubular Bandage -Size of Tubigrip Used -Size E ($) -Stockings Yes Pain Scale: 0-10 Numeric Is Patient Pain Free? Yes WC - Visit Discharge Discharge Condition Stable Ambulatory Status Ambulatory Transportation Private Auto Medication Reconcilliation completed & Yes provided to patient/care provider Clinical Summary of Care Provided Yes Assessment/Plan Assessment/Plan (1) Ulcer of right medial lower extremity with fat layer exposed: CODE(S): L97.812 - Non-pressure chronic ulcer of other part of right lower leg with fat layer exposed (2) Traumatic open wound of right lower leg: CODE(S): S81.801A - Unspecified open wound, right lower leg, initial encounter QUALIFIERS: Encounter type: subsequent encounter Qualified Code(s): S81.801D - Unspecified open wound, right lower leg, subsequent encounter PLAN: Plan Patient evaluated at the wound healing center today. Right posterior leg ulcer healed after 2 applications of Epifix. Wound care - She has been approved for Epifix for the right medial leg ulcer. Today is the 5th application of Epifix 2x2 cm, 100% of product was used. Covered with wound veil that was secured with steri strips. Hydrogel placed over the Epifix and covered with Mepilex dressing. She may change the outer dressing if she needs to, above the wound veil. She was instructed not to get this area wet. Compression - Compression stockings 30-40 mmHg. To be worn during the day and may remove them at bedtime. When she gets home, encouraged to keep legs elevated. Follow up one week.
--- NOTE | 2024-10-01 10:00 | WC ---
PHOTO 09/17/24 FROY MCALLISTER
== END 2024-09-25 23:59 | disposition home or self-care (01) ==
LOC: WC 11:15
PROVIDERS: PCP Internal Medicine; Referring Provider Physician Assistant; Visit Provider Nurse Practitioner Family
DX: L97.812 Non-pressure chronic ulcer of other part of right lower leg with fat layer exposed (principal); S81.801D Unspecified open wound, right lower leg, subsequent encounter
CPT/HCPCS: 15271; Q4186